=== PATIENT | female | born 1950 | race American Indian/Alaskan Native ===

== ENCOUNTER 2017-02-17 08:53 | Emergency (ER) | payer MEDICARE ==
[2017-02-17 08:53] VITALS: BMI 36.6
[2017-02-17 09:18] VITALS: TEMP 98
[2017-02-17] MEDS ORDERED: Sodium Chloride 0.9% 1,000 ML IV ONE ×2 (09:24→09:25)
--- NOTE | 2017-02-17 09:37 | C.PDOC ---
History Of Present Illness 66 year old female presents to the ED s/p a syncopal episode. Patient states she started prepping for her endoscopy at 03:00 and had several bowel movements. During one bowel movement she started to feel weak and sweaty like she was going to pass out. When her friend helped her off the toilet patient had the syncopal episode and came to after a few minutes. She denies any injury , dizziness, or any other complaints at this time. Time Seen by Provider: 02/17/17 09:14 Chief Complaint (Nursing): Syncope History Per: Patient History/Exam Limitations: no limitations Onset/Duration Of Symptoms: Mins Current Symptoms Are (Timing): Better Number Of Syncopal Episodes: 1 Activity At Onset Of Symptoms: Had Just Stood up Seizure Or Post-ictal Symptoms: None Severity: Mild Past Medical History Reviewed: Historical Data, Nursing Documentation, Vital Signs Vital Signs: Last Vital Signs Temp 98 F 02/17/17 09:05 Pulse 77 02/17/17 13:22 Resp 16 02/17/17 13:22 BP 139/82 02/17/17 13:22 Pulse Ox 96 02/19/17 12:44 - Medical History PMH: Arthritis, Asthma Surgical History: Cholecystectomy (x2), Family History: States: Unknown Family Hx - Social History Hx Tobacco Use: No Hx Alcohol Use: No Hx Substance Use: No - Immunization History Hx Tetanus Toxoid Vaccination: (unk) Hx Influenza Vaccination: Yes Hx Pneumococcal Vaccination: Yes Review Of Systems Except As Marked, All Systems Reviewed And Found Negative. Constitutional: Negative for: Fever, Chills Cardiovascular: Negative for: Chest Pain, Palpitations Respiratory: Negative for: Shortness of Breath Gastrointestinal: Negative for: Vomiting, Abdominal Pain Neurological: Positive for: Other (+Syncope). Negative for: Weakness, Numbness , Dizziness Physical Exam - Physical Exam Appears: Non-toxic, No Acute Distress Skin: Normal Color, Warm, Dry Head: Atraumatic, Normacephalic Eye(s): bilateral: Normal Inspection Oral Mucosa: Moist Chest: Symmetrical Cardiovascular: Rhythm Regular, No Murmur Respiratory: Normal Breath Sounds, No Accessory Muscle Use, No Rales, No Rhonchi , No Wheezing Gastrointestinal/Abdominal: Soft, No Distention Extremity: Normal ROM Neurological/Psych: Oriented x3, Normal Speech, Normal Cognition ED Course And Treatment - Laboratory Results Result Diagrams: 02/17/17 09:46 02/17/17 09:46 O2 Sat by Pulse Oximetry: 96 (Room air) Pulse Ox Interpretation: Normal Progress Note: EKG, Blood work, and Urinalysis ordered and reviewed. Patient treated with IV fluids. Medical Decision Making Medical Decision Making: Pt observed in the ED and remained stable Pt ambulated without difficultly Syncope likely related to diarrhea Discussed with dr Meehan as pt wanted to have colonoscopy today. Plan dc home to reschedule scoping Disposition Counseled Patient/Family Regarding: Diagnosis, Need For Followup - Disposition Referrals: Abdelrahman Chacon MD [Staff Provider] - Disposition: HOME/ ROUTINE Disposition Time: 13:15 Condition: GOOD Additional Instructions: Rest, drink plenty of gatoraid Follow up with PMD Instructions: Syncope (ED) - Clinical Impression Clinical Impression: Syncope - Scribe Statement The provider has reviewed the documentation as recorded by the Scribe Lilian Cedeño. Provider Attestation: All medical record entries made by the Scribe were at my direction and personally dictated by me. I have reviewed the chart and agree that the record accurately reflects my personal performance of the history, physical exam, medical decision making, and the department course for this patient. I have also personally directed, reviewed, and agree with the discharge instructions and disposition.
[2017-02-17] MEDS ORDERED: Sodium Chloride 0.9% 1,000 ML ONE ×2 (09:47→11:32)
[2017-02-17 09:52] LABS: BASO % 0.6 % (0.0-2.0); EOS # 0.1 K/uL (0.0-0.7); EOS % 2.4 % (0.0-4.0); LYMPH # 1.1 K/uL (1.0-4.3); LYMPH % 20.7 % (20.0-40.0); MEAN CELL VOLUME 83.3 fL (81.0-99.0); MEAN CORPUSCULAR HEMOGLOBIN 27.6 pg (27.0-31.0); MEAN CORPUSCULAR HGB CONC 33.1 g/dL (33.0-37.0); MEAN PLATELET VOLUME 7.9 fL (7.2-11.7); MONO # 0.4 K/uL (0.0-0.8); MONO % 7.2 % (0.0-10.0); RED CELL DISTRIBUTION WIDTH 13.5 % (11.5-14.5); WHITE BLOOD COUNT 5.5 K/uL (4.8-10.8)
[2017-02-17 09:59] LABS: CHLORIDE 103 mmol/L (98-107); SODIUM 141 mmol/L (132-148)
[2017-02-17 10:00] LABS: POTASSIUM 3.9 mmol/L (3.6-5.2)
[2017-02-17 10:02] LABS: ALB/GLOB RATIO 1.1 (1.0-2.1); ALKALINE PHOSPHATASE 101 U/L (38-126); ALT/SGPT 31 U/L (9-52); AST/SGOT 18 U/L (14-36); BILIRUBIN,TOTAL 0.6 mg/dL (0.2-1.3); BLOOD UREA NITROGEN 13 mg/dL (7-17); CARBON DIOXIDE 25 mmol/L (22-30); GFR AFRICAN-AMERICAN > 60; GLUCOSE,RANDOM 106 mg/dL (65-105); TOTAL PROTEIN 7.6 g/dL (6.3-8.3)
[2017-02-17 10:03] LABS: CALCIUM 9.1 mg/dl (8.6-10.4)
[2017-02-17 10:34] LABS: RBC URINE 4 /hpf (0-3); URINE BACTERIA RARE (<OCC); URINE BILIRUBIN NEGATIVE (NEGATIVE); URINE BLOOD 1+ (NEGATIVE); URINE COLOR Yellow (YELLOW); URINE GLUCOSE (UA) NORMAL (Normal); URINE KETONE NEGATIVE (NEGATIVE); URINE LEUKOCYTE ESTERASE 2+ Leu/uL (Negative); URINE PROTEIN NEGATIVE (NEGATIVE); URINE UROBILINOGEN NORMAL mg/dL (0.2-1.0); WBC URINE 4 /hpf (0-5)
[2017-02-17] MEDS ORDERED: Loperamide Hydrochloride 1 mg/5 ml Cup PO STA (13:17)
[2017-02-17 13:23] VITALS: BP 139/82; PULSE 77; RESP 16
--- NOTE | 2017-02-18 10:49 | CARD ---
APPROVED REPORT EKG Measurement Heart [id number] <Conclusion> Normal sinus rhythm Possible Left atrial enlargement Borderline ECG
[2017-02-19 12:43] VITALS: O2SAT 96
== END 2017-02-17 13:32 | disposition home or self-care (01) ==
LOC: C.ER 08:53
DX: R55 Syncope and collapse (principal)
CPT/HCPCS: 80053; 81001; 85025; 93005; 96360; 96361; 99285; J7040

== ENCOUNTER 2017-02-25 07:07 | Day surgery (SDC) | payer MEDICARE ==
[2017-02-25 07:34] VITALS: BMI 32.9
[2017-02-25] MEDS ORDERED: Propofol 10 mg/ml Inj (20 ML) ONE (08:41)
[2017-02-25] MEDS ORDERED: Lactated Ringer's 1,000 ML IV SCH (08:45)
--- NOTE | 2017-02-25 08:45 | CP.SDSHP ---
Same Day Surgery H & P - History Proposed Procedure: Colonoscopy Pre-Op Diagnosis: rectal bleeding - Previous Medical/Surgical History Misc: Other (Glaucoma. Back problems) Previous Surgical History: back surgery. - Allergies Allergies: Allergies soy Allergy (Intermediate, Verified 02/17/17 09:27) ITCHING - Current Medications Current Medications: reviewed - Physical Exam General Appearance: wdwn nad Vital Signs: Vital Signs 02/25/17 07:38 Temperature 98.0 F Pulse Rate 80 Respiratory 17 Rate Blood Pressure 112/74 O2 Sat by Pulse 97 Oximetry Mental Status: Alert & Oriented x3 Heart: WNL Lungs: WNL GI: WNL - {Optional Preform as Required} Abdomen: WNL - Impression Impression: Rectal bleed Pt. Evaluated Today:Candidate for Anesthesia & Procedure: Yes - Date & Time Date: 02/25/17 Time: 08:44 Short Stay Discharge - Short Stay Discharge Admitting Diagnosis/Reason for Visit: RECTAL BLEED Disposition: HOME/ ROUTINE
[2017-02-25] MEDS ORDERED: Glucagon Recombinant 1 mg Inj ONE (09:00)
[2017-02-25 09:51] VITALS: TEMP 97.5
[2017-02-25 10:17] VITALS: BP 118/59; PULSE 63; RESP 16; O2SAT 98
== END 2017-02-25 10:22 | disposition home or self-care (01) ==
LOC: C.ENDO 07:07
PROVIDERS: ATTEND Internal Medicine Gastroenterology
DX: D12.5 Benign neoplasm of sigmoid colon (principal); K62.5 Hemorrhage of anus and rectum; K57.30 Diverticulosis of large intestine without perforation or abscess without bleeding; K64.0 First degree hemorrhoids
CPT/HCPCS: 45385; 88305; J1610; J2704; J7120

== ENCOUNTER 2017-04-05 10:29 | Inpatient (IN) | payer MEDICARE, OTHER ==
[2017-04-05 10:29] VITALS: BMI 32.9
[2017-04-05] MEDS ORDERED: Morphine 4 MG/ML VIAL ONE ×2 (11:22→15:21)
[2017-04-05 11:29] LABS: BASO % 0.6 % (0.0-2.0); EOS # 0.1 K/uL (0.0-0.7); EOS % 2.6 % (0.0-4.0); HEMATOCRIT 39.9 % (34.0-47.0); LYMPH # 1.3 K/uL (1.0-4.3); LYMPH % 27.7 % (20.0-40.0); MEAN CELL VOLUME 84.8 fL (81.0-99.0); MEAN CORPUSCULAR HEMOGLOBIN 27.8 pg (27.0-31.0); MEAN CORPUSCULAR HGB CONC 32.8 g/dL (33.0-37.0); MEAN PLATELET VOLUME 7.5 fL (7.2-11.7); MONO # 0.4 K/uL (0.0-0.8); MONO % 9.1 % (0.0-10.0); NRBC % 0.1 % (0.0-2.0); WHITE BLOOD COUNT 4.6 K/uL (4.8-10.8)
--- NOTE | 2017-04-05 11:39 | C.PDOC ---
History Of Present Illness 66 year old female presents to the ED with complaints of chest pain and upper back pain described as sudden onset and sharp chest and upper back pain. Patient states she was walking around at work when the pain began and was felt all over with worsening on movement or when bending. Then nausea, and vomited once. She notes a history of lower back issues and had a laminectomy ten years ago. She denies ever feeling this type of pain, SOB, diaphoresis, cough, or fever. Treated with asa and zofran in the field. Time Seen by Provider: 04/05/17 10:58 Chief Complaint (Nursing): Chest Pain History Per: Patient History/Exam Limitations: no limitations Onset/Duration Of Symptoms: Hrs Current Symptoms Are (Timing): Still Present Quality: Sharp Associated Symptoms: Nausea. denies: Diaphoresis, Syncope Exacerbating Factors: Movement Recent travel outside of the [place] States: No Additional History Per: EMS Past Medical History Reviewed: Historical Data, Nursing Documentation, Vital Signs Vital Signs: Last Vital Signs Temp 98.5 F 04/05/17 13:10 Pulse 61 04/05/17 13:10 Resp 16 04/05/17 13:10 BP 124/71 04/05/17 13:10 Pulse Ox 98 04/05/17 13:10 - Medical History PMH: Arthritis, Asthma, Colonic Polyps, Osteoporosis Surgical History: Cholecystectomy (x2), Family History: States: Unknown Family Hx - Social History Hx Tobacco Use: No Hx Alcohol Use: No Hx Substance Use: No Review Of Systems Constitutional: Negative for: Fever, Chills, Sweats, Weakness Eyes: Negative for: Vision Change Cardiovascular: Positive for: Chest Pain. Negative for: Palpitations Respiratory: Negative for: Cough, Shortness of Breath, Wheezing Gastrointestinal: Positive for: Nausea. Negative for: Vomiting, Abdominal Pain , Diarrhea Musculoskeletal: Positive for: Back Pain (upper back pain) Physical Exam - Physical Exam Appears: Non-toxic, Other (Appears in painful distress) Skin: Warm, Dry Head: Normacephalic Eye(s): bilateral: Normal Inspection Oral Mucosa: Moist Neck: Normal ROM, Supple Chest: Symmetrical, No Deformity Cardiovascular: Rhythm Regular, No Murmur Respiratory: No Rales, No Rhonchi, No Stridor, No Wheezing Gastrointestinal/Abdominal: Soft, No Tenderness, No Distention, No Guarding, No Rebound Back: Paraspinal Tenderness (parathoracic tenderness T1-T10) Extremity: Normal ROM, No Tenderness Neurological/Psych: Oriented x3, Normal Speech, Normal Cognition ED Course And Treatment - Laboratory Results Result Diagrams: 04/05/17 11:22 04/05/17 11:22 ECG: Interpreted By Me, Viewed By Me ECG Rhythm: Sinus Rhythm (with sinus arrhythmia) ECG Interpretation: No Acute Changes Interpretation Of ECG: sinus arrhthymia at 73 bpm, no STT changes Rate From EC O2 Sat by Pulse Oximetry: 96 (room air ) Pulse Ox Interpretation: Normal - Radiology CXR: Interpreted by Me CXR Interpretation: Yes: No Acute Disease Medical Decision Making Medical Decision Making: Pt medicated with morphine for pain with good relie Labs ekg and cxr unremarkable However in view of pt's age and severity of symptoms, observation indicated Discussed with dr Wild who agrees with plan Disposition - Disposition Disposition: HOSPITALIZED Disposition Time: 15:34 Condition: GOOD - Clinical Impression Clinical Impression: Chest pain - Scribe Statement The provider has reviewed the documentation as recorded by the Scribe Mary Bentley All medical record entries made by the Scribe were at my direction and personally dictated by me. I have reviewed the chart and agree that the record accurately reflects my personal performance of the history, physical exam, medical decision making, and the department course for this patient. I have also personally directed, reviewed, and agree with the discharge instructions and disposition. Decision To Admit - Pt Status Changed To: Hospital Disposition Of: Observation - . Bed Request Type: Telemetry Admitting Physician: Laila Wild Patient Diagnosis: Chest pain
[2017-04-05 11:48] LABS: CHLORIDE 100 mmol/L (98-107); POTASSIUM 3.5 mmol/L (3.6-5.2); SODIUM 138 mmol/L (132-148)
[2017-04-05 11:50] LABS: ALB/GLOB RATIO 1.1 (1.0-2.1); ALKALINE PHOSPHATASE 85 U/L (38-126); AST/SGOT 22 U/L (14-36); BILIRUBIN,TOTAL 0.5 mg/dL (0.2-1.3); CARBON DIOXIDE 26 mmol/L (22-30); GFR AFRICAN-AMERICAN > 60; TOTAL PROTEIN 6.8 g/dL (6.3-8.3)
[2017-04-05 11:51] LABS: ALT/SGPT 27 U/L (9-52); BLOOD UREA NITROGEN 20 mg/dL (7-17); CALCIUM 8.8 mg/dl (8.6-10.4); GLUCOSE,RANDOM 97 mg/dL (65-105)
--- NOTE | 2017-04-05 13:39 | RAD ---
PROCEDURE: CHEST RADIOGRAPH, 1 VIEW HISTORY: CP COMPARISON: COMPARISON IS MADE TO THE PREVIOUS STUDY DATED 03/03/2016. FINDINGS: LUNGS: No evidence of new infiltrate or consolidation in the lungs. No evidence of significant interval change PLEURA: No pneumothorax or pleural fluid seen. CARDIOVASCULAR: Normal. OSSEOUS STRUCTURES: No significant abnormalities. VISUALIZED UPPER ABDOMEN: Normal. OTHER FINDINGS: None. IMPRESSION: No active disease. No significant interval change since the previous exam.
--- NOTE | 2017-04-05 16:30 | CP.PCM.HP ---
<Candida Sommer - Last Filed: 04/05/17 17:06> History of Present Illness - History of Present Illness History of Present Illness: CC: "sharp chest pain" HPI: Patient is a 66 year old female with PMHx of arthritis and chronic low back pain who presents to the ED after she developed chest pain this morning. Patient was walking while at work when she had sudden onset midsternal chest pain at 0930. Pain was described as sharp pressure, 8/10, and radiating to her back. Patient sat down and had 2 episodes of non-bilious, non-bloody vomiting. The patient was brought to the ED where she was given Morphine 4mg IV. Pain was alleviated to a 3/10 but still present. Upon examination the patient states that the pain now radiates to her bilateral flank. Patient denies any other associated symptoms: Denies fever, chills, recent illness, diarrhea, constipation, urinary symptoms, recent illness, lower leg swelling, leg pain, headache, dizziness, change in vision, dysphagia, gerd, palpitations, diaphoresis, recent travel, and sick contacts. Patient had a stress test 2 years ago which was normal. Colonoscopy done 2016 which showed polyp and diverticulum. PMD: Mitchel PMHx: arthritis and chronic low back pain Meds: Naproxen twice daily Surgical Hx: laminectomy with fusion of L2-4, x2 Family Hx: Mom from natural causes at age 91, Dad- DM (no family history of NH) Social Hx: Denies EtOH use. Previous 2ppd smoker x 30 years (quit 13 years ago) . Denies illicit drug use. Works at [employer] in maintenance. Allergies: soy (rash); NKDA Present on Admission - Present on Admission Any Indicators Present on Admission: No Review of Systems - Constitutional Constitutional: As Per HPI. absent: Chills, Headache, Weakness - EENT Eyes: As Per HPI. absent: Blurred Vision, Change in Vision Ears: As Per HPI. absent: Dizziness Nose/Mouth/Throat: As Per HPI. absent: Sore Throat - Cardiovascular Cardiovascular: As Per HPI, Chest Pain, Chest Pain at Rest. absent: Dyspnea, Edema, Lightheadedness, Palpitations, Pedal Edema - Respiratory Respiratory: As Per HPI. absent: Cough, Dyspnea, Chest Congestion - Gastrointestinal Gastrointestinal: As Per HPI, Nausea, Vomiting. absent: Abdominal Pain, Constipation, Diarrhea, Heartburn, Hematemesis - Genitourinary Genitourinary: As Per HPI. absent: Change in Urinary Stream, Difficulty Urinating - Musculoskeletal Musculoskeletal: As Per HPI. absent: Muscle Cramps, Muscle Weakness, Numbness, Tingling - Integumentary Integumentary: As Per HPI. absent: New Lesions, Rash - Neurological Neurological: As Per HPI. absent: Abnormal Gait, Dizziness, Numbness, Headaches , Syncope, Tingling, Tremor, Weakness - Psychiatric Psychiatric: As Per HPI. absent: Anxiety, Depression - Endocrine Endocrine: absent: Palpitations Past Patient History - Tetanus Immunizations Tetanus Immunization: Unknown - Past Medical History & Family History Past Medical History?: No - Past Social History Smoking Status: Never Smoked - CARDIAC Hx Cardiac Disorders: No - PULMONARY Hx Asthma: Yes - NEUROLOGICAL Hx Neurological Disorder: No - HEENT Hx HEENT Problems: Yes Hx Glaucoma: Yes - RENAL Hx Chronic Kidney Disease: No - HEMATOLOGICAL/ONCOLOGICAL Hx Blood Disorders: No Hx Blood Transfusions: No - INTEGUMENTARY Hx Dermatological Problems: No - MUSCULOSKELETAL/RHEUMATOLOGICAL Hx Arthritis: Yes Hx Osteoporosis: Yes - GASTROINTESTINAL Hx Gastrointestinal Disorders: Yes - GENITOURINARY/GYNECOLOGICAL Hx Genitourinary Disorders: No - PSYCHIATRIC Hx Substance Use: No - SURGICAL HISTORY Hx Cholecystectomy: Yes (x2) - ANESTHESIA Hx Anesthesia: Yes Hx Anesthesia Reactions: No Hx Malignant Hyperthermia: No Meds Allergies/Adverse Reactions: Allergies Allergy/AdvReac Type Severity Reaction Status Date / Time soy Allergy Intermediate ITCHING Verified 02/17/17 09:27 Physical Exam - Constitutional Appears: Non-toxic, No Acute Distress - Head Exam Head Exam: ATRAUMATIC, NORMOCEPHALIC - Eye Exam Eye Exam: EOMI, Normal appearance, PERRL Pupil Exam: NORMAL ACCOMODATION - ENT Exam ENT Exam: Mucous Membranes Moist - Neck Exam Neck exam: Positive for: Normal Inspection - Respiratory Exam Respiratory Exam: Clear to Auscultation Bilateral, NORMAL BREATHING PATTERN. absent: Rales, Rhonchi, Wheezes, Respiratory Distress - Cardiovascular Exam Cardiovascular Exam: REGULAR RHYTHM, +S1, +S2. absent: Tachycardia, Irregular Rhythm, Systolic Murmur Additional comments: reproducible chest pain with palpation of midsternum above xiphoid process - GI/Abdominal Exam GI & Abdominal Exam: Normal Bowel Sounds, Soft, Tenderness (mild ttp of epigastrum ). absent: Distended, Firm, Guarding - Extremities Exam Extremities exam: Positive for: full ROM, normal inspection, pedal pulses present. Negative for: pedal edema, tenderness - Neurological Exam Neurological exam: Alert, CN II-XII Intact, Normal Gait, Oriented x3 - Psychiatric Exam Psychiatric exam: Normal Affect, Normal Mood - Skin Skin Exam: Dry, Intact, Normal Color, Warm Results - Vital Signs Recent Vital Signs: Last Vital Signs Temp 98.2 F 04/05/17 15:28 Pulse 70 04/05/17 15:28 Resp 16 04/05/17 15:28 BP 127/75 04/05/17 15:28 Pulse Ox 96 04/05/17 15:35 - Labs Result Diagrams: 04/05/17 11:22 04/05/17 11:22 Assessment & Plan - Assessment and Plan (Free Text) Assessment: 1. Chest pain Admit to tele/obs Hemodynamically stable Chest Xray- no active disease EKG- sinus arrhythmia @73bpm, no ST/T wave changes MAUREEN negative x1 f/u ROMIs x2 with EKGs q6h f/u CTA Chest dissection protocol ASA 81mg PO daily Crestor 10mg PO HS f/u lipid panel, TSH, HgA1C 2. Prophylactic measures SCDs Protonix 40mg IV daily <Tony Culver - Last Filed: 04/13/17 12:58> Results - Vital Signs Recent Vital Signs: Last Vital Signs Temp 98 F 04/13/17 00:00 Pulse 83 04/13/17 00:00 Resp 20 04/13/17 00:00 BP 138/87 04/13/17 00:00 Pulse Ox 96 04/13/17 00:00 - Labs Result Diagrams: 04/13/17 07:22 04/13/17 07:22 Labs: Laboratory Results - last 24 hr 04/13/17 04/13/17 07:22 07:22 WBC 7.2 RBC 3.74 L Hgb 10.5 L Hct 31.0 L MCV 82.9 MCH 28.1 MCHC 33.9 RDW 14.2 Plt Count 248 MPV 7.4 Neut % (Auto) 77.7 H Lymph % (Auto) 8.8 L Dupage % (Auto) 11.4 H Eos % (Auto) 1.9 Baso % (Auto) 0.2 Neut # 5.6 Lymph # 0.6 L Dupage # 0.8 Eos # 0.1 Baso # 0.0 Neutrophils % (Manual) 80 H Band Neutrophils % 7 H Lymphocytes % (Manual) 4 L Monocytes % (Manual) 6 Eosinophils % (Manual) 2 Myelocytes % 1 H Platelet Estimate Normal Hypochromasia (manual) Slight Ovalocytes Slight Sodium 133 Potassium 3.5 L Chloride 96 L Carbon Dioxide 30 Anion Gap 11 BUN 8 Creatinine 0.7 Est GFR ( Amer) > 60 Est GFR (Non-Af Amer) > 60 Random Glucose 104 Calcium 7.9 L Phosphorus 3.2 Magnesium 2.0 Total Bilirubin 0.6 AST 34 ALT 46 Alkaline Phosphatase 103 Total Protein 5.6 L Albumin 2.5 L Globulin 3.1 Albumin/Globulin Ratio 0.8 L Attending/Attestation - Attestation I have personally seen and examined this patient.: Yes I have fully participated in the care of the patient.: Yes I have reviewed all pertinent clinical information: Yes Notes (Text): 04/13/17 12:58 Patient was seen and examined at bedside with the resident at the time of admission This a late computer entry I discussed the plan of care with the resident. I reviewed patient's chart, labs , imaging studies, medical record and I agree with the history and physical and assessment/plan with the resident.
[2017-04-05] MEDS ORDERED: Iodixanol 320 mg/ml 150 ml Bottle IV ONE (17:07)
[2017-04-05 17:41] LABS: CHOLESTEROL 161 mg/dL (0-199)
[2017-04-05 18:14] LABS: THYROID STIMULATING HORMONE 0.45 mIU/L (0.46-4.68)
--- NOTE | 2017-04-05 19:42 | CT ---
EXAM: CT Chest With Intravenous Contrast CLINICAL HISTORY: 66 years old, female; Pain; Abdominal pain; Generalized; Chest pain; Type not specified; Additional info: Chest pain radiating to back TECHNIQUE: Axial computed tomography images of the chest with intravenous contrast. This CT exam was performed using one or more of the following dose reduction techniques: automated exposure control, adjustment of the mA and/or kV according to patient size, and/or use of iterative reconstruction technique. Coronal and sagittal reformatted images were created and reviewed. CONTRAST: 100 mL of [id number] administered intravenously. COMPARISON: No relevant prior studies available. FINDINGS: Lungs: Centriacinar type emphysema is noted bilaterally predominantly in the mid and upper lung abbott, right side greater than left.. There is a bulla in the right middle lobe. There are 2 bulla in the posterior basal segment of the left lower lobe Pleural space: Unremarkable. No pneumothorax. No significant effusion. Heart: Unremarkable. No cardiomegaly. No significant pericardial effusion. Bones/joints: Unremarkable. No acute fracture. No dislocation. Soft tissues: Unremarkable. Vasculature: Unremarkable. No thoracic aortic aneurysm. Lymph nodes: Unremarkable. No enlarged lymph nodes. 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 Bullae noted at each lung base. 2. No evidence of aortic aneurysm EXAM: CT Abdomen and Pelvis With Intravenous Contrast CLINICAL HISTORY: 66 years old, female; Pain; Abdominal pain; Generalized; Chest pain; Type not specified; Additional info: Chest pain radiating to back TECHNIQUE: Axial computed tomography images of the abdomen and pelvis with intravenous contrast. This CT exam was performed using one or more of the following dose reduction techniques: automated exposure control, adjustment of the mA and/or kV according to patient size, and/or use of iterative reconstruction technique. Coronal and sagittal reformatted images were created and reviewed. CONTRAST: 100 mL of [id number] administered intravenously. EXAM DATE/TIME: Exam ordered 04/05/2017 4:20 PM COMPARISON: CR - CHEST TWO VIEWS (PA/LAT) 03/03/2016 5:53:48 PM FINDINGS: Lower thorax: No acute findings. ABDOMEN: Liver: Unremarkable. No mass. Gallbladder and bile ducts: There is a gallstone noted within the neck of the gallbladder. No ductal dilation. Pancreas: Unremarkable. No mass. No ductal dilation. Spleen: Unremarkable. No splenomegaly. Adrenals: Unremarkable. No mass. Kidneys and ureters: Unremarkable. No solid mass. No hydronephrosis. Stomach and bowel: Scattered colonic diverticula. No obstruction. No mucosal thickening. Appendix: No findings to suggest acute appendicitis. PELVIS: Bladder: Unremarkable. No mass. Reproductive: There is calcification or enhancement noted within the right ovary. The right ovary measures 3 x 3 x 3 cm. ABDOMEN and PELVIS: Intraperitoneal space: Unremarkable. No free air. No significant fluid collection. Bones/joints: There's been a posterior laminectomy from L3-S1. Intrapedicle screws and posterior spinal fixation devices bridge L3-L5 intervertebral disc spaces. No acute fracture. No dislocation. Soft tissues: Unremarkable. Vasculature: There is a standard configuration of the origin of the great vessels from the aortic arch. No abdominal aortic aneurysm. Lymph nodes: Unremarkable. No enlarged lymph nodes. IMPRESSION: 1. Gallstone 2. Scattered colonic diverticula. No evidence of diverticulitis. 3. Hyperdense appearance of the right ovary. This may be related to calcification or reflect enhancement. Given the patient's age, it is unlikely that this represents the extravasation or hemorrhage within the right ovary. Clinical correlation suggested. 4. Postoperative changes in the lower lumbar spine.
[2017-04-05] MEDS: Morphine 4 MG/ML VIAL IVP PRN (22:16)
[2017-04-06] MEDS: Morphine 4 MG/ML VIAL IVP PRN (03:49)
[2017-04-06 07:25] LABS: CHLORIDE 98 mmol/L (98-107)
[2017-04-06 07:26] LABS: POTASSIUM 3.9 mmol/L (3.6-5.2); SODIUM 134 mmol/L (132-148)
[2017-04-06 07:29] LABS: BLOOD UREA NITROGEN 14 mg/dL (7-17); CARBON DIOXIDE 25 mmol/L (22-30); GFR AFRICAN-AMERICAN > 60; GLUCOSE,RANDOM 105 mg/dL (65-105)
--- NOTE | 2017-04-06 07:49 | CP.PCM.PN ---
<Elma Ramos - Last Filed: 04/06/17 14:21> Subjective - Date & Time of Evaluation Date of Evaluation: 04/06/17 Time of Evaluation: 11:41 - Subjective Subjective: PGY1 Medicine note for Dr. Greene Patient seen and examined at bedside. Patient continues to complain of epigastric and abdominal pain radiating to both flanks. She reports she has reflux in the morning and she had had episode of vomitus before admisison which was nonbloody nonbilious and did not look like ground coffee. Patient also had an episode of emesis this AM. Patient also disclosed some pain on inspiration. Patient denies a metallic taste in her mouth but she reports a burning sensation. She disclosed she has been taking Naproxen daily for years for her arthritis and lumbar surgeries. Patient has also been having some dark stool and she noted some blood in her stool a couple of weeks ago. She has had a colonoscopy in February where a polyp was removed. Patient has never had an EGD. She denied headaches, dizziness, fever, chest pain, cough, diarrhea, constipation, dysuria, pain and swelling in her legs bilaterally. Objective - Vital Signs/Intake and Output Vital Signs (last 24 hours): Temp Pulse Resp BP Pulse Ox 98.2 F 80 20 138/84 93 L 04/05/17 23:21 04/06/17 00:15 04/05/17 23:21 04/05/17 23:21 04/05/17 23:21 - Medications Medications: Current Medications Aspirin (Aspirin Chewable) 81 mg PO DAILY [facility] Morphine Sulfate (Morphine) 4 mg IVP Q4H PRN PRN Reason: Pain, moderate (4-7) Last Admin: 04/06/17 03:49 Dose: 4 mg Ondansetron HCl (Zofran Inj) 4 mg IVP Q6H PRN PRN Reason: Nausea/Vomiting Last Admin: 04/06/17 03:49 Dose: 4 mg Pantoprazole Sodium (Protonix Inj) 40 mg IVP DAILY [facility] Rosuvastatin Calcium (Crestor) 10 mg PO HS [facility] Last Admin: 04/05/17 22:18 Dose: 10 mg - Labs Labs: 04/06/17 07:05 - Constitutional Appears: Non-toxic, No Acute Distress - Head Exam Head Exam: NORMAL INSPECTION - Eye Exam Eye Exam: Normal appearance. absent: Conjunctival injection, Scleral icterus - ENT Exam ENT Exam: Mucous Membranes Moist - Neck Exam Neck Exam: Normal Inspection - Respiratory Exam Respiratory Exam: Clear to Ausculation Bilateral, NORMAL BREATHING PATTERN. absent: Accessory Muscle Use, Rales, Rhonchi, Wheezes, Respiratory Distress - Cardiovascular Exam Cardiovascular Exam: REGULAR RHYTHM, RRR, +S1, +S2 - GI/Abdominal Exam GI & Abdominal Exam: Guarding (when palpating RUQ), Soft, Tenderness (RUQ), Normal Bowel Sounds. absent: Distended, Firm, Rigid, Hernia, Rebound - Rectal Exam Rectal Exam: NORMAL INSPECTION. absent: Black Stool, Bloody Stool, Hemorrhoids , Fecal Impaction - Extremities Exam Extremities Exam: Normal Capillary Refill, Normal Inspection. absent: Pedal Edema, Tenderness - Back Exam Back Exam: NORMAL INSPECTION. 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 Bullae noted at each lung base; No evidence of aortic aneurysm. ASA 81mg PO daily Crestor 10mg PO HS Morphing 4mg IVP Q4 pain prn Toradol 30mg IVP one time for pain Lipid panel WNL TSH 0.45 HgA1C 5.6 Abdominal Pain f/u RUQ U/S CT Abd/pelvis with IV contrast: gallstone; scattered colonic diverticula, no evidence of diverticulitis; hyperdense appearance of right ovary. This may be related to calcification or reflect enhancement. Given the f/u amylase and lipase f/u FOBT Simethicone 80mg po tid Protonix 40mg IVP BID Zofran 4mg IVP Q6H PRN Bismuth Subsalicylate 262mg po x 1 dose NS @ 100cc/hr GI Dr. Cronin consulted- f/u recommendations Prophylactic measures SCDs Protonix 40mg IV daily Heparin 5000U SC Q12 Zofran 4mg IVP Q6H prn NS @ 100cc/hr Plan discussed with Dr. Jc Ramos PGY1 <Torey Greene - Last Filed: 05/08/17 13:12> Objective - Vital Signs/Intake and Output Vital Signs (last 24 hours): Temp Pulse Resp BP Pulse Ox 98.6 F 102 H 20 146/84 95 04/13/17 15:35 04/13/17 15:35 04/13/17 15:35 04/13/17 15:35 04/13/17 15:35 - Labs Labs: 04/13/17 07:22 04/13/17 07:22 PT 11.0 SECONDS (9.7-12.2) 04/10/17 08:09 INR 1.0 04/10/17 08:09 APTT 29 SECONDS (21-34) 04/10/17 08:09 Attending/Attestation - Attestation I have personally seen and examined this patient.: Yes I have fully participated in the care of the patient.: Yes I have reviewed all pertinent clinical information, including history, physical exam and plan: Yes Notes (Text): Patient Seen and examined with the resident. Agree with the resident's evaluation, assessment and plan. 66 year old female with PMHx of arthritis and chronic low back pain who presents to the ED for chest pain continue workup Abdominal Pain continue workup
[2017-04-06 12:09] LABS: HEMATOCRIT 40.2 % (34.0-47.0); MEAN CELL VOLUME 84.6 fL (81.0-99.0); MEAN CORPUSCULAR HEMOGLOBIN 29.3 pg (27.0-31.0); MEAN CORPUSCULAR HGB CONC 34.6 g/dL (33.0-37.0); MEAN PLATELET VOLUME 7.8 fL (7.2-11.7); WHITE BLOOD COUNT 10.6 K/uL (4.8-10.8)
[2017-04-06] MEDS ORDERED: Bismuth Subsalicylate 262 mg/15 ml Sus (240 ml) PO STA (14:07)
[2017-04-06] MEDS: Sodium Chloride 0.9% 1,000 ML IV SCH (14:43)
--- NOTE | 2017-04-06 16:13 | CP.PCM.CON ---
History of Present Illness - History of Present Illness History of Present Illness: CC: Abdominal pain HPI: 66 year old woman, known to me from office, developed sudden onset of chest pain and nausea/vomiting while walking at work yesterday. The symptoms progressed and patient came to the ER. CT dissection was performed and remarkable for gallstone in neck of GB, so GI consult requested. Patient has less pain today but still feels nauseated. Patient takes Naproxen every day for arthritis. She denies signs/symptoms of GI bleeding. 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 Review of Systems - Constitutional Constitutional: absent: Chills, Fever - EENT Eyes: absent: Change in Vision Ears: absent: Ear Pain - Cardiovascular Cardiovascular: Chest Pain. absent: Dyspnea - Respiratory Respiratory: Dyspnea on Exertion. absent: Dyspnea - Gastrointestinal Gastrointestinal: Abdominal Pain, Nausea. absent: Change in Bowel Habits, Constipation, Loose Stools, Melena - Genitourinary Genitourinary: absent: Dysuria - Musculoskeletal Musculoskeletal: Arthralgias, Back Pain - Neurological Neurological: absent: Abnormal Gait Past Patient History - Tetanus Immunizations Tetanus Immunization: Unknown - Past Medical History & Family History Past Medical History?: Yes - Past Social History Smoking Status: Former Smoker - CARDIAC Hx Cardiac Disorders: No - PULMONARY Hx Respiratory Disorders: Yes Hx Asthma: Yes - NEUROLOGICAL Hx Neurological Disorder: No - HEENT Hx HEENT Problems: Yes Hx Glaucoma: Yes - RENAL Hx Chronic Kidney Disease: No - HEMATOLOGICAL/ONCOLOGICAL Hx Blood Disorders: No Hx Blood Transfusions: No - INTEGUMENTARY Hx Dermatological Problems: No - MUSCULOSKELETAL/RHEUMATOLOGICAL Hx Musculoskeletal Disorders: Yes Hx Arthritis: Yes Hx Back Pain: Yes Hx Falls: Yes Hx Fractures: Yes (rt ankle) Hx Osteoporosis: Yes - GASTROINTESTINAL Hx Gastrointestinal Disorders: Yes - GENITOURINARY/GYNECOLOGICAL Hx Genitourinary Disorders: No - PSYCHIATRIC Hx Psychophysiologic Disorder: No Hx Substance Use: No - SURGICAL HISTORY Hx Surgeries: Yes Hx Section: Yes (x2) Other/Comment: explor lap due to vaginal tear, epidural injections for pain ,laminectomy/fusion - ANESTHESIA Hx Anesthesia: Yes Hx Anesthesia Reactions: No Hx Malignant Hyperthermia: No Meds Allergies/Adverse Reactions: Allergies Allergy/AdvReac Type Severity Reaction Status Date / Time soy Allergy Intermediate ITCHING Verified 02/17/17 09:27 - Medications Medications: Current Medications Aspirin (Aspirin Chewable) 81 mg PO DAILY [facility] Last Admin: 04/06/17 09:51 Dose: 81 mg Heparin Sodium (Porcine) (Heparin) 5,000 units SC Q12 [facility] Last Admin: 04/06/17 11:28 Dose: 5,000 units Sodium Chloride (Sodium Chloride 0.9%) 1,000 mls @ 100 mls/hr IV .Q10H [facility] Last Admin: 04/06/17 14:43 Dose: 100 mls/hr Ketorolac Tromethamine (Toradol) 30 mg IVP ONCE PRN PRN Reason: Pain, moderate (4-7) Last Admin: 04/06/17 14:44 Dose: 30 mg Ondansetron HCl (Zofran Inj) 4 mg IVP Q6H PRN PRN Reason: Nausea/Vomiting Last Admin: 04/06/17 09:50 Dose: 4 mg Pantoprazole Sodium (Protonix Inj) 40 mg IVP BID [facility] Rosuvastatin Calcium (Crestor) 10 mg PO HS [facility] Last Admin: 04/05/17 22:18 Dose: 10 mg Simethicone (Mylicon Chew Tab) 80 mg PO TID [facility] Physical Exam - Constitutional Appears: Well, No Acute Distress - Head Exam Head Exam: ATRAUMATIC, NORMOCEPHALIC - Eye Exam Eye Exam: Normal appearance. absent: Scleral icterus - ENT Exam ENT Exam: Normal Exam - Neck Exam Neck exam: Positive for: Normal Inspection. Negative for: Tenderness, Thyromegaly - Respiratory Exam Respiratory Exam: NORMAL BREATHING PATTERN - Cardiovascular Exam Cardiovascular Exam: REGULAR RHYTHM - GI/Abdominal Exam GI & Abdominal Exam: Soft, Tenderness (RUQ and epigastric tenderness). absent: Distended, Guarding, Mass, Rebound - Rectal Exam Rectal Exam: Deferred - Extremities Exam Extremities exam: Positive for: normal inspection - Neurological Exam Neurological exam: Alert, Oriented x3 - Psychiatric Exam Psychiatric exam: Normal Affect, Normal Mood - Skin Skin Exam: Warm Results - Vital Signs Recent Vital Signs: Last Vital Signs Temp 98.3 F 04/06/17 07:20 Pulse 79 04/06/17 07:20 Resp 18 04/06/17 07:20 BP 118/70 04/06/17 07:20 Pulse Ox 94 L 04/06/17 07:20 - Labs Result Diagrams: 04/06/17 11:57 04/06/17 07:05 Labs: Laboratory Results - last 24 hr 04/05/17 04/05/17 04/06/17 17:20 17:20 02:16 WBC RBC Hgb Hct MCV MCH MCHC RDW Plt Count MPV Sodium Potassium Chloride Carbon Dioxide Anion Gap BUN Creatinine Est GFR ( Amer) Est GFR (Non-Af Amer) Random Glucose Hemoglobin A1c 5.6 Calcium Total Creatine Kinase 141 H 84 CK-MB (Mass) 2.07 1.24 Troponin I, Quant < 0.0120 < 0.0120 Triglycerides 50 Cholesterol 161 LDL Cholesterol Direct 92 HDL Cholesterol 56 Lipase TSH 3rd Generation 0.45 L Stool Occult Blood 04/06/17 04/06/17 04/06/17 07:03 07:05 11:57 WBC 10.6 D RBC 4.75 Hgb 13.9 Hct 40.2 MCV 84.6 MCH 29.3 MCHC 34.6 RDW 15.0 H Plt Count 205 MPV 7.8 Sodium 134 Potassium 3.9 Chloride 98 Carbon Dioxide 25 Anion Gap 14 BUN 14 Creatinine 0.7 Est GFR ( Amer) > 60 Est GFR (Non-Af Amer) > 60 Random Glucose 105 Hemoglobin A1c Calcium 9.0 Total Creatine Kinase CK-MB (Mass) Troponin I, Quant Triglycerides Cholesterol LDL Cholesterol Direct HDL Cholesterol Lipase 18 L TSH 3rd Generation Stool Occult Blood 04/06/17 14:58 WBC RBC Hgb Hct MCV MCH MCHC RDW Plt Count MPV Sodium Potassium Chloride Carbon Dioxide Anion Gap BUN Creatinine Est GFR ( Amer) Est GFR (Non-Af Amer) Random Glucose Hemoglobin A1c Calcium Total Creatine Kinase CK-MB (Mass) Troponin I, Quant Triglycerides Cholesterol LDL Cholesterol Direct HDL Cholesterol Lipase TSH 3rd Generation Stool Occult Blood Negative Assessment & Plan (1) Chest pain Assessment and Plan: Chest and abdominal pain- R/O Biliary vs peptic. Rec: abdominal sonogram, Protonix. Will follow up Status: Acute
--- NOTE | 2017-04-06 16:28 | US ---
HISTORY: abdominal pain COMPARISON: None. TECHNIQUE: Sonographic evaluation of the abdomen. FINDINGS: LIVER: Measures 15.1 cm. N smooth contour and normal l echogenicity of the liver parenchyma. No m hepatic mass however note is made of a small cyst left lobe liver measuring 1.6 x 1.1 x 1.6 cm. . No intrahepatic bile duct dilatation. GALLBLADDER: Gallbladder is physiologically distended. Intraluminal gallbladder calculus within the gallbladder neck region. There may also be either noncalcified calculus or polyp measuring 2.7 x 3.1 x 3.1 cm. The tiny amount of free fluid adjacent to the gallbladder wall. Rule out mild early cholecystitis the maddox maddox No sonographic Hassan sign. . COMMON BILE DUCT: Measures 5.4 mm. No stones. No dilatation. PANCREAS: Unremarkable as visualized. No mass. No ductal dilatation. RIGHT KIDNEY: Measures 12.2 x 5.0 x 5.5cm. Slight increased echogenicity. No calculus, mass, or hydronephrosis. LEFT KIDNEY: Measures 11.2 x 5.2 x 4.4cm. Slight increased. No evidence of obstructing nephrolithiasis. Small cyst midpole region measuring approximately 9 mm in greatest dimension. SPLEEN: Normal size measuring approximately 0.5 cm in greatest dimension. Normal contour. . No mass. AORTA: No aneurysmal dilatation. IVC: Unremarkable. OTHER FINDINGS: None. IMPRESSION: Cholelithiasis and possible polyp with gallbladder wall thickening/edema. . Small amount of free fluid adjacent to the gallbladder. Rule out mild early cholecystitis Small cyst left lobe liver. Small cyst midpole left kidney the kidneys are also slightly echogenic. Rule out underlying medical renal disease.
[2017-04-06] MEDS: Simethicone 80 mg Chewtab PO SCH (17:15)
--- NOTE | 2017-04-07 00:05 | CARD ---
APPROVED REPORT EKG Measurement Heart [id number] <Conclusion> Normal sinus rhythm with sinus arrhythmia Possible Left atrial enlargement Borderline ECG
[2017-04-07] MEDS: Sodium Chloride 0.9% 1,000 ML IV SCH ×4 (01:30→21:19)
--- NOTE | 2017-04-07 06:38 | CARD ---
APPROVED REPORT EKG Measurement Heart [id number] <Conclusion> Normal sinus rhythm with sinus arrhythmia Possible Left atrial enlargement Borderline ECG
--- NOTE | 2017-04-07 06:56 | CP.PCM.PN ---
Addendum entered and electronically signed by Elma Ramos 04/07/17 15:19: Surgery Dr. Kearns consulted - f/u reccs Original Note: <Elma Ramos - Last Filed: 04/07/17 14:21> Subjective - Date & Time of Evaluation Date of Evaluation: 04/07/17 Time of Evaluation: 07:30 - Subjective Subjective: PGY1 Medicine note for Dr. Greene Patient seen and examined at bedside. Patient reported her abdominal pain had improved and she was no longer nauseous or having any episodes of emesis. She tolerated her diet this AM after being NPO overnight. She denied any BM although she is having good UO. Patient complained of a headache that felt like it was behind her eyes but denied any neck stiffness, neck pain, photophobia, lacrimation. She also denied fever, chills, chest pain, palpitation, SOB, cough , bowel/bladder complaints, pain/swelling of her legs b/l. Patient is NPO at lunch for her HIDA scan and then NPO at midnight for an EGD in the AM. Objective - Vital Signs/Intake and Output Vital Signs (last 24 hours): Temp Pulse Resp BP Pulse Ox 99.5 F 103 H 20 138/84 95 04/07/17 02:00 04/07/17 02:00 04/07/17 02:00 04/07/17 02:00 04/07/17 02:00 Intake and Output: 04/06/17 04/07/17 18:59 06:59 Intake Total 800 Balance 800 - Medications Medications: Current Medications Acetaminophen (Tylenol 325mg Tab) 650 mg PO Q6 PRN PRN Reason: Headache Last Admin: 04/07/17 00:33 Dose: 650 mg Aspirin (Aspirin Chewable) 81 mg PO DAILY [facility] Last Admin: 04/06/17 09:51 Dose: 81 mg Heparin Sodium (Porcine) (Heparin) 5,000 units SC Q12 [facility] Last Admin: 04/06/17 22:02 Dose: 5,000 units Sodium Chloride (Sodium Chloride 0.9%) 1,000 mls @ 100 mls/hr IV .Q10H [facility] Last Admin: 04/07/17 02:38 Dose: 100 mls/hr Ketorolac Tromethamine (Toradol) 30 mg IVP ONCE PRN PRN Reason: Pain, moderate (4-7) Last Admin: 04/06/17 14:44 Dose: 30 mg Ondansetron HCl (Zofran Inj) 4 mg IVP Q6H PRN PRN Reason: Nausea/Vomiting Last Admin: 04/06/17 09:50 Dose: 4 mg Pantoprazole Sodium (Protonix Inj) 40 mg IVP BID [facility] Last Admin: 04/06/17 17:16 Dose: 40 mg Rosuvastatin Calcium (Crestor) 10 mg PO HS [facility] Last Admin: 04/06/17 22:00 Dose: Not Given Simethicone (Mylicon Chew Tab) 80 mg PO TID [facility] Last Admin: 04/06/17 17:15 Dose: 80 mg - Labs Labs: 04/06/17 11:57 04/06/17 07:05 - Constitutional Appears: Non-toxic, No Acute Distress - Head Exam Head Exam: ATRAUMATIC, NORMAL INSPECTION, NORMOCEPHALIC - Eye Exam Eye Exam: Normal appearance. absent: Conjunctival injection, Scleral icterus Pupil Exam: NORMAL ACCOMODATION - ENT Exam ENT Exam: Mucous Membranes Moist - Neck Exam Neck Exam: Normal Inspection. absent: Tenderness - Respiratory Exam Respiratory Exam: Clear to Ausculation Bilateral, NORMAL BREATHING PATTERN. absent: Accessory Muscle Use, Rales, Rhonchi, Wheezes, Respiratory Distress - Cardiovascular Exam Cardiovascular Exam: REGULAR RHYTHM, RRR, +S1, +S2. absent: Murmur - GI/Abdominal Exam GI & Abdominal Exam: Soft, Tenderness (RUQ to deep palpation), Normal Bowel Sounds. absent: Distended, Firm, Guarding, Rigid - Extremities Exam Extremities Exam: Normal Capillary Refill, Normal Inspection. absent: Pedal Edema, Tenderness - Back Exam Back Exam: NORMAL INSPECTION. 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 Bullae noted at each lung base; No evidence of aortic - aneurysm. -ASA 81mg PO daily -Crestor 10mg PO HS -Morphing 4mg IVP Q4 pain prn -Toradol 30mg IVP one time for pain -Lipid panel WNL -TSH 0.45 -HgA1C 5.6 RUQ abdominal Pain -Abdominal U/S: cholelithiasis and possible polyp with GB wall thickening/ edema. Small amount of free fluid adjacent to the gallbladder. Small amount of free fluid adjacent to the gallbladder. Rule out mild early cholecystitis. Small cyst left lower lobe liver. Small cyst midpole left kdiney the kidneys are also slightly echogenic. Rule out underlying medical renal disease -f/u HIDA scan -CT Abd/pelvis with IV contrast: gallstone; scattered colonic diverticula, no evidence of diverticulitis; hyperdense appearance of right ovary. This may be related to calcification or reflect enhancement. Given the -Amylase: 42 -Lipase: 18 -FOBT : negative -Simethicone 80mg po tid -Protonix 40mg IVP BID -Zofran 4mg IVP Q6H PRN -Bismuth Subsalicylate 262mg po x 1 dose -NS @ 100cc/hr -Patient for EGD in the AM -GI Dr. Cronin consulted Headaches -likely migraine headaches -CT head: nonspecific white matter changes -Tylenol 650mg po q6 prn headache Prophylactic measures -SCDs -Protonix 40mg IVP BID -Heparin 5000U SC Q12 -Zofran 4mg IVP Q6H prn -NS @ 100cc/hr -NPO after midnight for EGD in the AM 04/[address] Jc Ramos PGY1 <Torey Greene - Last Filed: 05/11/17 16:37> Objective - Vital Signs/Intake and Output Vital Signs (last 24 hours): Temp Pulse Resp BP Pulse Ox 98.6 F 102 H 20 146/84 95 04/13/17 15:35 04/13/17 15:35 04/13/17 15:35 04/13/17 15:35 04/13/17 15:35 - Labs Labs: 04/13/17 07:22 04/13/17 07:22 PT 11.0 SECONDS (9.7-12.2) 04/10/17 08:09 INR 1.0 04/10/17 08:09 APTT 29 SECONDS (21-34) 04/10/17 08:09 Attending/Attestation - Attestation I have personally seen and examined this patient.: Yes I have fully participated in the care of the patient.: Yes I have reviewed all pertinent clinical information, including history, physical exam and plan: Yes Notes (Text): Patient Seen and examined with the resident. Agree with the resident's evaluation, assessment and plan. 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 Bullae noted at each lung base; No evidence of aortic - aneurysm. -ASA 81mg PO daily -Crestor 10mg PO HS -Morphing 4mg IVP Q4 pain prn -Toradol 30mg IVP one time for pain -Lipid panel WNL -TSH 0.45 -HgA1C 5.6 RUQ abdominal Pain -Abdominal U/S: cholelithiasis and possible polyp with GB wall thickening/ edema. Small amount of free fluid adjacent to the gallbladder. Small amount of free fluid adjacent to the gallbladder. Rule out mild early cholecystitis. Small cyst left lower lobe liver. Small cyst midpole left kdiney the kidneys are also slightly echogenic. Rule out underlying medical renal disease -f/u HIDA scan -CT Abd/pelvis with IV contrast: gallstone; scattered colonic diverticula, no evidence of diverticulitis; hyperdense appearance of right ovary. This may be related to calcification or reflect enhancement. Given the -Amylase: 42 -Lipase: 18 -FOBT : negative -Simethicone 80mg po tid -Protonix 40mg IVP BID -Zofran 4mg IVP Q6H PRN -Bismuth Subsalicylate 262mg po x 1 dose -NS @ 100cc/hr -Patient for EGD in the AM -GI Dr. Cronin consulted Headaches -likely migraine headaches -CT head: nonspecific white matter changes -Tylenol 650mg po q6 prn headache
--- NOTE | 2017-04-07 08:17 | CP.PCM.PN ---
Subjective - Date & Time of Evaluation Date of Evaluation: 04/07/17 Time of Evaluation: 08:00 - Subjective Subjective: F/u abd pain. Reports less Cp and less epig p[ain. Naus and vomiting are less. Denies Rb, melena, fever, chills, [place], cough, hematuria, hemoptysis, SZ Objective - Vital Signs/Intake and Output Vital Signs (last 24 hours): Temp Pulse Resp BP Pulse Ox 99.2 F 97 H 20 131/81 94 L 04/07/17 08:08 04/07/17 08:08 04/07/17 08:08 04/07/17 08:08 04/07/17 08:08 Intake and Output: 04/07/17 04/07/17 06:59 18:59 Intake Total 800 Balance 800 - Medications Medications: Current Medications Acetaminophen (Tylenol 325mg Tab) 650 mg PO Q6 PRN PRN Reason: Headache Last Admin: 04/07/17 00:33 Dose: 650 mg Aspirin (Aspirin Chewable) 81 mg PO DAILY [facility] Last Admin: 04/06/17 09:51 Dose: 81 mg Heparin Sodium (Porcine) (Heparin) 5,000 units SC Q12 [facility] Last Admin: 04/06/17 22:02 Dose: 5,000 units Sodium Chloride (Sodium Chloride 0.9%) 1,000 mls @ 100 mls/hr IV .Q10H [facility] Last Admin: 04/07/17 02:38 Dose: 100 mls/hr Ketorolac Tromethamine (Toradol) 30 mg IVP ONCE PRN PRN Reason: Pain, moderate (4-7) Last Admin: 04/06/17 14:44 Dose: 30 mg Ondansetron HCl (Zofran Inj) 4 mg IVP Q6H PRN PRN Reason: Nausea/Vomiting Last Admin: 04/06/17 09:50 Dose: 4 mg Pantoprazole Sodium (Protonix Inj) 40 mg IVP BID [facility] Last Admin: 04/06/17 17:16 Dose: 40 mg Rosuvastatin Calcium (Crestor) 10 mg PO HS [facility] Last Admin: 04/06/17 22:00 Dose: Not Given Simethicone (Mylicon Chew Tab) 80 mg PO TID [facility] Last Admin: 04/06/17 17:15 Dose: 80 mg - Labs Labs: 04/06/17 11:57 04/06/17 07:05 - Constitutional Appears: Non-toxic - Respiratory Exam Respiratory Exam: Clear to Ausculation Bilateral - Cardiovascular Exam Cardiovascular Exam: RRR - GI/Abdominal Exam GI & Abdominal Exam: Soft, Tenderness, Normal Bowel Sounds. absent: Guarding, Mass, Rebound Additional comments: Mild epig tenderness - Extremities Exam Extremities Exam: absent: Calf Tenderness - Neurological Exam Neurological Exam: Alert, Oriented x3 Assessment and Plan (1) Abdominal pain Assessment & Plan: Likely due to gallbladder. Consider cholecystitis with stones, thick wall, and fred-GB fluid Rec: PPI, surgery consult. Consider HIDA Status: Acute (2) Cholelithiasis Assessment & Plan: Consider cholecystitis. Status: Acute (3) Chest pain Status: Acute (4) Bronchitis Status: Acute
[2017-04-07 08:42] LABS: BASO % 0.4 % (0.0-2.0); EOS # 0.1 K/uL (0.0-0.7); EOS % 0.4 % (0.0-4.0); HEMATOCRIT 39.7 % (34.0-47.0); LYMPH # 0.7 K/uL (1.0-4.3); LYMPH % 5.7 % (20.0-40.0); MEAN CELL VOLUME 83.9 fL (81.0-99.0); MEAN CORPUSCULAR HEMOGLOBIN 28.1 pg (27.0-31.0); MEAN CORPUSCULAR HGB CONC 33.6 g/dL (33.0-37.0); MEAN PLATELET VOLUME 7.9 fL (7.2-11.7); MONO # 1.1 K/uL (0.0-0.8); MONO % 9.2 % (0.0-10.0); PLATELET COUNT 199 K/uL (130-400); RED CELL DISTRIBUTION WIDTH 15.1 % (11.5-14.5); WHITE BLOOD COUNT 12.1 K/uL (4.8-10.8)
[2017-04-07 08:56] LABS: CHLORIDE 100 mmol/L (98-107); POTASSIUM 3.9 mmol/L (3.6-5.2); SODIUM 136 mmol/L (132-148)
[2017-04-07 08:58] LABS: ALB/GLOB RATIO 0.9 (1.0-2.1); AMYLASE 42 U/L (30-110); BILIRUBIN,TOTAL 1.4 mg/dL (0.2-1.3); CARBON DIOXIDE 26 mmol/L (22-30); GFR AFRICAN-AMERICAN > 60; TOTAL PROTEIN 6.6 g/dL (6.3-8.3)
[2017-04-07 08:59] LABS: ALKALINE PHOSPHATASE 92 U/L (38-126); ALT/SGPT 29 U/L (9-52); AST/SGOT 16 U/L (14-36); BLOOD UREA NITROGEN 10 mg/dL (7-17); CALCIUM 8.9 mg/dl (8.6-10.4); GLUCOSE,RANDOM 94 mg/dL (65-105); PHOSPHOROUS 2.6 mg/dL (2.5-4.5)
[2017-04-07 09:00] LABS: MAGNESIUM 1.7 mg/dL (1.6-2.3)
[2017-04-07 09:26] LABS: EOSINOPHIL 2 % (0-4); NEUTROPHIL 80 % (50-75); TOTAL CELLS COUNTED 100
[2017-04-07] MEDS: Simethicone 80 mg Chewtab PO SCH ×3 (09:29→17:48)
--- NOTE | 2017-04-07 12:07 | CT ---
PROCEDURE: CT HEAD WITHOUT CONTRAST. HISTORY: HEADACHE COMPARISON: None available. TECHNIQUE: Axial computed tomography images were obtained through the head/brain without intravenous contrast. Radiation dose: Total exam DLP = 881.43 mGy-cm. This CT exam was performed using one or more of the following dose reduction techniques: Automated exposure control, adjustment of the mA and/or kV according to patient size, and/or use of iterative reconstruction technique. FINDINGS: HEMORRHAGE: No intracranial hemorrhage. BRAIN: No mass effect or edema. Intracranial atherosclerotic calcifications. Scattered periventricular and subcortical white matter hypodensities, which are nonspecific, but often seen with chronic microvascular ischemic disease. Please note that MRI with diffusion imaging is more sensitive in the detection of acute ischemic event. VENTRICLES: No hydrocephalus. CALVARIUM: Unremarkable. PARANASAL SINUSES: Unremarkable as visualized. No significant inflammatory changes. MASTOID AIR CELLS: Unremarkable as visualized. No inflammatory changes. OTHER FINDINGS: None. IMPRESSION: Nonspecific white matter changes.
--- NOTE | 2017-04-07 17:02 | CP.PCM.CON ---
<Marilyn Álvarez - Last Filed: 04/07/17 17:18> History of Present Illness - History of Present Illness History of Present Illness: GENERAL SURGERY CONSULT NOTE FOR DR. KEARNS 66yo F with PMHx of arthritis, back pain, glaucoma originally presented to the ED on 04/05/17 for CP. The pain began that morning while she was walking at work. The pain was midsternal, radiating to her back and bilateral upper abdomen. She had 2 episodes of vomiting. She came to the ED where she had several more episodes of vomiting. She had a cardiac workup including CXR, EKG, MAUREEN panel which was negative, CTA chest dissection protocol. The CT Abd/pelvis with IV contrast showed gallstone in GB neck; scattered colonic diverticula; no evidence of aortic aneurysm. She had a colonoscopy last month which showed diverticulosis and a large tubulovillous adenoma polyp which was resected. She is scheduled for EGD tomorrow with GI. Currently, she states that her pain is much improved. She has a CAMPOVERDE for which she had a head CT today. PMHx: arthritis, glaucoma, chronic low back pain Meds: Naproxen twice daily Surgical Hx: laminectomy with fusion of L2-4, x2, Exploratory laparotomy 40 years ago Social Hx: Denies EtOH use. Previous 2ppd smoker x 30 years (quit 13 years ago) . Former marijuana and cocaine use, last 16-17years ago. Allergies: soy (rash); NKDA Review of Systems - Review of Systems All systems: reviewed and no additional remarkable complaints except (as per HPI ) Past Patient History - Tetanus Immunizations Tetanus Immunization: Unknown - Past Medical History & Family History Past Medical History?: Yes - Past Social History Smoking Status: Former Smoker - CARDIAC Hx Cardiac Disorders: No - PULMONARY Hx Respiratory Disorders: Yes Hx Asthma: Yes - NEUROLOGICAL Hx Neurological Disorder: No - HEENT Hx HEENT Problems: Yes Hx Glaucoma: Yes - RENAL Hx Chronic Kidney Disease: No - HEMATOLOGICAL/ONCOLOGICAL Hx Blood Disorders: No Hx Blood Transfusions: No - INTEGUMENTARY Hx Dermatological Problems: No - MUSCULOSKELETAL/RHEUMATOLOGICAL Hx Musculoskeletal Disorders: Yes Hx Arthritis: Yes Hx Back Pain: Yes Hx Falls: Yes Hx Fractures: Yes (rt ankle) Hx Osteoporosis: Yes - GASTROINTESTINAL Hx Gastrointestinal Disorders: Yes - GENITOURINARY/GYNECOLOGICAL Hx Genitourinary Disorders: No - PSYCHIATRIC Hx Psychophysiologic Disorder: No Hx Substance Use: No - SURGICAL HISTORY Hx Surgeries: Yes Hx Section: Yes (x2) Other/Comment: explor lap due to vaginal tear, epidural injections for pain ,laminectomy/fusion - ANESTHESIA Hx Anesthesia: Yes Hx Anesthesia Reactions: No Hx Malignant Hyperthermia: No Meds Allergies/Adverse Reactions: Allergies Allergy/AdvReac Type Severity Reaction Status Date / Time soy Allergy Intermediate ITCHING Verified 02/17/17 09:27 - Medications Medications: Current Medications Acetaminophen (Tylenol 325mg Tab) 650 mg PO Q6 PRN PRN Reason: Headache Last Admin: 04/07/17 08:13 Dose: 650 mg Aspirin (Aspirin Chewable) 81 mg PO DAILY [facility] Last Admin: 04/07/17 09:32 Dose: 81 mg Heparin Sodium (Porcine) (Heparin) 5,000 units SC Q12 [facility] Last Admin: 04/07/17 09:30 Dose: 5,000 units Sodium Chloride (Sodium Chloride 0.9%) 1,000 mls @ 100 mls/hr IV .Q10H [facility] Last Admin: 04/07/17 10:10 Dose: Not Given Ketorolac Tromethamine (Toradol) 30 mg IVP ONCE PRN PRN Reason: Pain, moderate (4-7) Last Admin: 04/07/17 15:34 Dose: 30 mg Latanoprost (Xalatan Opht) 0 ml OU HS [facility] Ondansetron HCl (Zofran Inj) 4 mg IVP Q6H PRN PRN Reason: Nausea/Vomiting Last Admin: 04/06/17 09:50 Dose: 4 mg Pantoprazole Sodium (Protonix Inj) 40 mg IVP BID [facility] Last Admin: 04/07/17 09:29 Dose: 40 mg Rosuvastatin Calcium (Crestor) 10 mg PO HS [facility] Last Admin: 04/06/17 22:00 Dose: Not Given Simethicone (Mylicon Chew Tab) 80 mg PO TID [facility] Last Admin: 04/07/17 13:53 Dose: Not Given Physical Exam - Constitutional Appears: Non-toxic, No Acute Distress - Eye Exam Eye Exam: EOMI, Normal appearance - Neck Exam Neck exam: Positive for: Normal Inspection - Respiratory Exam Respiratory Exam: NORMAL BREATHING PATTERN. absent: Respiratory Distress - Cardiovascular Exam Cardiovascular Exam: +S1, +S2 - GI/Abdominal Exam GI & Abdominal Exam: Soft, Tenderness (tender in RUQ, mild tenderness in epigastric area). absent: Distended, Firm, Guarding, Rebound, Rigid Additional comments: Midline incision scar - Neurological Exam Neurological exam: Alert, CN II-XII Intact, Oriented x3 - Psychiatric Exam Psychiatric exam: Normal Affect, Normal Mood - Skin Skin Exam: Dry, Normal Color, Warm Results - Vital Signs Recent Vital Signs: Last Vital Signs Temp 98.8 F 04/07/17 16:00 Pulse 94 H 04/07/17 16:00 Resp 18 04/07/17 16:00 BP 147/84 04/07/17 16:00 Pulse Ox 94 L 04/07/17 16:00 - Labs Result Diagrams: 04/07/17 08:32 04/07/17 08:32 Assessment & Plan - Assessment and Plan (Free Text) Assessment: 66yo F with PMHx of arthritis, back pain, glaucoma who presented with CP, abdominal pain, and vomiting who was found to have symptomatic cholelithiasis and possible early cholecystitis - Afebrile, mild tachycardia - Mild leukocytosis WBC 12.1 - T bili 1.4 (was 0.5 on admission) - LFTs, Alk phos WNL - US: cholelithiasis and possible polyp with gallbladder wall thickening/ edema. small amount free fluid adjacent to the gallbladder- r/o mild early cholecystitis - HIDA scan: no visualization of gallbladder on first 60 mins - Going to EGD tomorrow with GI - Will do Cholecystectomy on - Discussed plan with Dr. Som Álvarez PGY-2 <Harry Kearns - Last Filed: 04/12/17 22:28> Meds - Medications Medications: Current Medications Acetaminophen (Tylenol 325mg Tab) 650 mg PO Q6H PRN PRN Reason: FEVER>100.4 Albuterol/Ipratropium (Duoneb 3 Mg/0.5 Mg (3 Ml) Ud) 3 ml INH RQ6 [facility] Last Admin: 04/12/17 20:53 Dose: Not Given Hydromorphone HCl (Dilaudid) 0.5 mg IVP Q10M PRN PRN Reason: Pain, moderate (4-7) Last Admin: 04/11/17 17:44 Dose: 0.5 mg Piperacillin Sod/Tazobactam Sod (Zosyn 3.375 Gm Iv Premix) 3.375 gm in 50 mls @ 100 mls/hr IVPB Q6H [facility] Last Admin: 04/12/17 19:02 Dose: 100 mls/hr Metronidazole (Flagyl) 500 mg in 100 mls @ 200 mls/hr IV Q8 [facility] Last Admin: 04/12/17 21:23 Dose: 200 mls/hr Latanoprost (Xalatan Opht) 0 ml OU HS [facility] Last Admin: 04/12/17 21:22 Dose: 2.5 ml Ondansetron HCl (Zofran Inj) 4 mg IVP Q6H PRN PRN Reason: Nausea/Vomiting Last Admin: 04/12/17 17:22 Dose: 4 mg Pantoprazole Sodium (Protonix Inj) 40 mg IVP BID [facility] Last Admin: 04/12/17 17:21 Dose: 40 mg Rosuvastatin Calcium (Crestor) 10 mg PO HS [facility] Last Admin: 04/12/17 21:22 Dose: 10 mg Saccharomyces Boulardii (Florastor) 250 mg PO TID [facility] Last Admin: 04/12/17 17:18 Dose: 250 mg Simethicone (Mylicon Chew Tab) 80 mg PO TID [facility] Last Admin: 04/12/17 17:19 Dose: 80 mg Tramadol HCl (Ultram) 50 mg PO TID PRN PRN Reason: Headache Last Admin: 04/12/17 20:39 Dose: 50 mg Results - Vital Signs Recent Vital Signs: Last Vital Signs Temp 98.5 F 04/12/17 16:00 Pulse 105 H 04/12/17 16:00 Resp 20 04/12/17 16:00 BP 146/82 04/12/17 16:00 Pulse Ox 96 04/12/17 16:00 - Labs Result Diagrams: 04/12/17 06:38 04/12/17 06:38 Labs: Laboratory Results - last 24 hr 04/12/17 04/12/17 06:38 06:38 WBC 9.0 RBC 3.88 Hgb 10.7 L Hct 32.5 L MCV 83.8 MCH 27.7 MCHC 33.0 RDW 14.6 H Plt Count 226 MPV 7.4 Neut % (Auto) 76.3 H Lymph % (Auto) 11.2 L Holt % (Auto) 11.1 H Eos % (Auto) 1.3 Baso % (Auto) 0.1 Neut # 6.9 Lymph # 1.0 Holt # 1.0 H Eos # 0.1 Baso # 0.0 Sodium 135 Potassium 3.6 Chloride 98 Carbon Dioxide 28 Anion Gap 13 BUN 8 Creatinine 0.8 Est GFR ( Amer) > 60 Est GFR (Non-Af Amer) > 60 Random Glucose 119 H Calcium 7.8 L Phosphorus 3.2 Magnesium 2.0 Total Bilirubin 0.6 AST 38 H D ALT 48 Alkaline Phosphatase 119 Total Protein 5.7 L Albumin 2.6 L Globulin 3.1 Albumin/Globulin Ratio 0.9 L Attending/Attestation - Attestation I have personally seen and examined this patient.: Yes I have fully participated in the care of the patient.: Yes I have reviewed all pertinent clinical information: Yes Notes (Text): 04/12/17 22:27 Pt was seen and examined at bedside on 04/08/17 Agree with above note and assessment Pt with Acute on Chronic Cholecystitis with Cholelithiasis Medical clearance C/w current mx Plan d.w pt in detail Risk and benefit explained in detail.
--- NOTE | 2017-04-07 17:54 | NM ---
PROCEDURE: Nuclear Medicine Hepatobiliary Scan HISTORY: RUQ pain COMPARISON: April 06, 2017. Abdominal ultrasound. Summary of findings on the comparison examination: Cholelithiasis and possible polyp with gallbladder wall thickening and edema. Small amount of free fluid adjacent to the gallbladder. TECHNIQUE: 5.4 mCi of technetium 99m Mebrofenin was administered intravenously. Planar images of the abdomen were obtained at 5 min intervals to 60 mins. Delayed images were also obtained. FINDINGS: LIVER: Timely and homogenous uptake. COMMON BILE DUCT: identified at 10 mins. GALLBLADDER: Does not visualize at 3.5 hours. SMALL BOWEL: Identified at 15 mins. IMPRESSION: Abnormal Hepatobiliary Scan. Nonvisualization of the gallbladder at 3.5 hours. The cystic duct is occluded.
[2017-04-07] MEDS: Latanoprost 2.5 ml Opht Soln OU SCH (22:04)
[2017-04-07 23:13] LABS: INR 1.2
--- NOTE | 2017-04-08 07:08 | CP.PCM.PN ---
Addendum entered and electronically signed by Elma Ramos 04/08/17 11:56: Patient has been started on Zosyn 3.375gm IVPB Q6 and Morphine 4mg IVP Q4 PRN for pain Diet has been restarted to low fat GI/heptaic diet Dr. 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 Original Note: <Elma Ramos - Last Filed: 04/08/17 11:19> Subjective - Date & Time of Evaluation Date of Evaluation: 04/08/17 Time of Evaluation: 07:00 - Subjective Subjective: PGY1 Medicine note for Dr. Greene Patient seen and examined at bedside. Patient was NPO overnight and was due for an EGD which was cancelled as patient's HIDA scan showed cystic duct occlusion. Patient due for cholecystectomy tomorrow 04/[address] Kearns. Patient is complaining of headaches this AM for which tylenol has not been helping and toradol in the past has not helped. Patient denied fever, chills, chest pain, palpitations, SOB, cough, vomiting, bowel/bladder complaints, pain in her legs bilaterally and swelling in her legs bilaterally. Objective - Vital Signs/Intake and Output Vital Signs (last 24 hours): Temp Pulse Resp BP Pulse Ox 98.2 F 97 H 20 125/70 99 04/08/17 00:20 04/08/17 00:20 04/08/17 00:20 04/08/17 00:20 04/08/17 00:20 - Medications Medications: Current Medications Acetaminophen (Tylenol 325mg Tab) 650 mg PO Q6 PRN PRN Reason: Headache Last Admin: 04/07/17 08:13 Dose: 650 mg Aspirin (Aspirin Chewable) 81 mg PO DAILY [facility] Last Admin: 04/07/17 09:32 Dose: 81 mg Heparin Sodium (Porcine) (Heparin) 5,000 units SC Q12 [facility] Last Admin: 04/07/17 21:18 Dose: 5,000 units Sodium Chloride (Sodium Chloride 0.9%) 1,000 mls @ 100 mls/hr IV .Q10H [facility] Last Admin: 04/07/17 21:19 Dose: 100 mls/hr Ketorolac Tromethamine (Toradol) 30 mg IVP ONCE PRN PRN Reason: Pain, moderate (4-7) Last Admin: 04/07/17 15:34 Dose: 30 mg Latanoprost (Xalatan Opht) 0 ml OU HS [facility] Last Admin: 04/07/17 22:04 Dose: 2.5 ml Morphine Sulfate (Morphine) 2 mg IVP Q4 PRN PRN Reason: Pain, moderate (4-7) Last Admin: 04/08/17 02:40 Dose: 2 mg Ondansetron HCl (Zofran Inj) 4 mg IVP Q6H PRN PRN Reason: Nausea/Vomiting Last Admin: 04/08/17 02:50 Dose: 4 mg Pantoprazole Sodium (Protonix Inj) 40 mg IVP BID [facility] Last Admin: 04/07/17 17:48 Dose: 40 mg Rosuvastatin Calcium (Crestor) 10 mg PO HS [facility] Last Admin: 04/07/17 21:17 Dose: 10 mg Simethicone (Mylicon Chew Tab) 80 mg PO TID [facility] Last Admin: 04/07/17 17:48 Dose: 80 mg - Labs Labs: PT 13.4 SECONDS (9.7-12.2) H 04/07/17 22:56 INR 1.2 04/07/17 22:56 APTT 34 SECONDS (21-34) 04/07/17 22:56 - Constitutional Appears: Non-toxic, No Acute Distress - Head Exam Head Exam: NORMAL INSPECTION - Eye Exam Eye Exam: Normal appearance. absent: Conjunctival injection, Scleral icterus - ENT Exam ENT Exam: Mucous Membranes Moist - Neck Exam Neck Exam: Normal Inspection. absent: Tenderness - Respiratory Exam Respiratory Exam: Clear to Ausculation Bilateral, NORMAL BREATHING PATTERN. absent: Accessory Muscle Use, Rales, Rhonchi, Wheezes, Respiratory Distress - Cardiovascular Exam Cardiovascular Exam: Tachycardia, REGULAR RHYTHM, +S1, +S2. absent: Murmur - GI/Abdominal Exam GI & Abdominal Exam: Soft, Tenderness (R sided abdominal pain), Normal Bowel Sounds. absent: Distended, Firm, Guarding, Rigid - Extremities Exam Extremities Exam: Normal Capillary Refill, Normal Inspection. absent: Pedal Edema, Tenderness - Back Exam Back Exam: NORMAL INSPECTION. absent: rash noted - Neurological Exam Neurological Exam: Alert, Awake, Oriented x3 - Psychiatric Exam Psychiatric exam: Normal Affect, Normal Mood - Skin Skin Exam: Dry, Intact, Normal Color, Warm Assessment and Plan - Assessment and Plan (Free Text) Assessment: 66 year old female with PMHx of arthritis and chronic low back pain who presents to the ED for chest pain Plan: RUQ abdominal Pain -Abdominal U/S: cholelithiasis and possible polyp with GB wall thickening/ edema. Small amount of free fluid adjacent to the gallbladder. Small amount of free fluid adjacent to the gallbladder. Rule out mild early cholecystitis. Small cyst left lower lobe liver. Small cyst midpole left kdiney the kidneys are also slightly echogenic. Rule out underlying medical renal disease -HIDA scan: abnl HIDA. Nonvisualization of the GB. Cystic duct is occluded. -CT Abd/pelvis with IV contrast: gallstone; scattered colonic diverticula, no evidence of diverticulitis; hyperdense appearance of right ovary. This may be related to calcification or reflect enhancement. Given the -Amylase: 42 -Lipase: 18 -FOBT : negative -Simethicone 80mg po tid -Protonix 40mg IVP BID -Zofran 4mg IVP Q6H PRN -D5NS @ 100cc/hr -EGD cancelled this AM -GI Dr. Cronin consulted -Surgery Dr. Kearns consulted Chest pain -Resolved -Hemodynamically stable -Chest Xray- no active disease -EKG- sinus arrhythmia @73bpm, no ST/T wave changes -MAUREEN negative x3 -EKG NSR with sinus arryhthmia -CTA Chest dissection protocol : centriacinar type emphysema in mid and upper lung abbott b/l R>L. Bullae noted at each lung base; No evidence of aortic - aneurysm. -ASA 81mg PO daily -Crestor 10mg PO HS -Morphine 4mg IVP Q4 pain prn -Lipid panel WNL -TSH 0.45 -HgA1C 5.6 Headaches -likely migraine headaches -CT head: nonspecific white matter changes -Tylenol 650mg po q6 prn headache -Neuro consult: Dr. Jorge Holm Glaucoma -Xalatan opth OU HS Prophylactic measures -SCDs -Protonix 40mg IVP BID -Heparin 5000U SC Q12 -Zofran 4mg IVP Q6H prn -Morphine 2mg IVP Q4 prn pain -D5NS @ 100cc/hr -NPO Plan discussed with Dr. Jc Ramos PGY1 <Torey Greene - Last Filed: 05/12/17 15:21> Objective - Vital Signs/Intake and Output Vital Signs (last 24 hours): Temp Pulse Resp BP Pulse Ox 98.6 F 102 H 20 146/84 95 04/13/17 15:35 04/13/17 15:35 04/13/17 15:35 04/13/17 15:35 04/13/17 15:35 - Labs Labs: 04/13/17 07:22 04/13/17 07:22 PT 11.0 SECONDS (9.7-12.2) 04/10/17 08:09 INR 1.0 04/10/17 08:09 APTT 29 SECONDS (21-34) 04/10/17 08:09 Attending/Attestation - Attestation I have personally seen and examined this patient.: Yes I have fully participated in the care of the patient.: Yes I have reviewed all pertinent clinical information, including history, physical exam and plan: Yes Notes (Text): Patient Seen and examined with the resident. Agree with the resident's evaluation, assessment and plan. 66 year old female with PMHx of arthritis and chronic low back pain who presents to the ED for chest pain Plan: RUQ abdominal Pain -Abdominal U/S: cholelithiasis and possible polyp with GB wall thickening/ edema. Chest pain ruled out for acute myocardial infarction. Possibly referred abdominal pain
[2017-04-08 07:19] LABS: BASO % 0.2 % (0.0-2.0); EOS # 0.1 K/uL (0.0-0.7); EOS % 0.6 % (0.0-4.0); HEMATOCRIT 37.4 % (34.0-47.0); LYMPH # 0.8 K/uL (1.0-4.3); LYMPH % 7.2 % (20.0-40.0); MEAN CELL VOLUME 83.5 fL (81.0-99.0); MEAN CORPUSCULAR HGB CONC 33.6 g/dL (33.0-37.0); MEAN PLATELET VOLUME 7.8 fL (7.2-11.7); MONO # 0.8 K/uL (0.0-0.8); MONO % 7.4 % (0.0-10.0); PLATELET COUNT 191 K/uL (130-400); RED CELL DISTRIBUTION WIDTH 14.6 % (11.5-14.5); WHITE BLOOD COUNT 10.7 K/uL (4.8-10.8)
[2017-04-08 07:24] LABS: INR 1.1
[2017-04-08 07:41] LABS: CHLORIDE 101 mmol/L (98-107); POTASSIUM 3.7 mmol/L (3.6-5.2); SODIUM 135 mmol/L (132-148)
[2017-04-08 07:43] LABS: AST/SGOT 14 U/L (14-36); CARBON DIOXIDE 26 mmol/L (22-30); GFR AFRICAN-AMERICAN > 60
[2017-04-08 07:44] LABS: ALKALINE PHOSPHATASE 81 U/L (38-126); ALT/SGPT 21 U/L (9-52); BLOOD UREA NITROGEN 12 mg/dL (7-17); CALCIUM 8.3 mg/dl (8.6-10.4); GLUCOSE,RANDOM 90 mg/dL (65-105); PHOSPHOROUS 2.5 mg/dL (2.5-4.5); TOTAL PROTEIN 6.1 g/dL (6.3-8.3)
[2017-04-08 07:45] LABS: MAGNESIUM 1.8 mg/dL (1.6-2.3)
[2017-04-08 08:28] LABS: NEUTROPHIL 82 % (50-75); TOTAL CELLS COUNTED 100
[2017-04-08] MEDS: Simethicone 80 mg Chewtab PO SCH ×3 (10:13→17:40)
--- NOTE | 2017-04-08 12:05 | CP.PCM.PN ---
Subjective - Date & Time of Evaluation Date of Evaluation: 04/08/17 Time of Evaluation: 12:02 - Subjective Subjective: CC: Follow up abdominal pain HIDA confirms cholecystitis. Patient has upper abdominal pain and chest pain with deep inspiration. No fevers. Discussed with surgical attending and resident- patient will be scheduled for cholecystectomy. Objective - Vital Signs/Intake and Output Vital Signs (last 24 hours): Temp Pulse Resp BP Pulse Ox 98.2 F 93 H 18 131/77 93 L 04/08/17 08:26 04/08/17 08:26 04/08/17 08:26 04/08/17 08:26 04/08/17 08:26 - Medications Medications: Current Medications Acetaminophen (Tylenol 325mg Tab) 650 mg PO Q6 PRN PRN Reason: Headache Last Admin: 04/07/17 08:13 Dose: 650 mg Aspirin (Aspirin Chewable) 81 mg PO DAILY [facility] Last Admin: 04/08/17 10:13 Dose: Not Given Heparin Sodium (Porcine) (Heparin) 5,000 units SC Q12 [facility] Last Admin: 04/07/17 21:18 Dose: 5,000 units Dextrose/Sodium Chloride (Dextrose 5%/0.9% Ns 1000 Ml) 1,000 mls @ 100 mls/hr IV .Q10H [facility] Piperacillin Sod/Tazobactam Sod (Zosyn 3.375 Gm Iv Premix) 3.375 gm in 50 mls @ 100 mls/hr IVPB Q6H [facility] Ketorolac Tromethamine (Toradol) 30 mg IVP ONCE PRN PRN Reason: Pain, moderate (4-7) Last Admin: 04/07/17 15:34 Dose: 30 mg Latanoprost (Xalatan Opht) 0 ml OU HS [facility] Last Admin: 04/07/17 22:04 Dose: 2.5 ml Morphine Sulfate (Morphine) 4 mg IVP Q4 PRN PRN Reason: Pain, moderate (4-7) Ondansetron HCl (Zofran Inj) 4 mg IVP Q6H PRN PRN Reason: Nausea/Vomiting Last Admin: 04/08/17 10:20 Dose: 4 mg Pantoprazole Sodium (Protonix Inj) 40 mg IVP BID [facility] Last Admin: 04/08/17 10:20 Dose: 40 mg Rosuvastatin Calcium (Crestor) 10 mg PO HS [facility] Last Admin: 04/07/17 21:17 Dose: 10 mg Simethicone (Mylicon Chew Tab) 80 mg PO TID [facility] Last Admin: 04/08/17 10:13 Dose: Not Given - Labs Labs: 04/08/17 07:00 04/08/17 07:00 PT 12.2 SECONDS (9.7-12.2) 04/08/17 07:00 INR 1.1 04/08/17 07:00 APTT 32 SECONDS (21-34) 04/08/17 07:00 - Constitutional Appears: No Acute Distress, Chronically Ill - Head Exam Head Exam: NORMOCEPHALIC - Eye Exam Eye Exam: absent: Scleral icterus - Respiratory Exam Respiratory Exam: NORMAL BREATHING PATTERN - Cardiovascular Exam Cardiovascular Exam: REGULAR RHYTHM - GI/Abdominal Exam GI & Abdominal Exam: Soft, Tenderness, Normal Bowel Sounds. absent: Guarding Assessment and Plan (1) Chest pain Assessment & Plan: Due to cholecystitis Status: Acute (2) Cholecystitis, acute with cholelithiasis Assessment & Plan: Rec: Bowel rest. Cholecystectomy- to be scheduled per surgery team. Planned EGD cancelled - not necessary. Status: Acute
--- NOTE | 2017-04-08 12:35 | CON ---
DATE: 04/08/2017 REASON FOR CONSULTATION: Headaches. HISTORY OF PRESENT ILLNESS: The patient is a 66-year-old female who has been asked for evaluation of headaches. The patient was admitted with abdominal pain and is going to go for a cholecystectomy. The patient has been noticing headaches over the last 3-4 days. Headaches are described as pressure- like, mostly on the sides of the head on the back of her eyes. Headaches are not associated with any nausea, vomiting. Denies any blurring of vision or photophobia. Denies any photophobia. She never gets headaches like this before. Denies any other complaints. REVIEW OF SYSTEMS: Denies any chest pain, shortness of breath. Positive for abdominal pain. Denies any constipation, diarrhea, dysuria, pyuria, cough, sputum production, hallucinations, skin rash, ab normal swelling of the glands. PAST MEDICAL HISTORY: Arthritis and chronic low back pain. MEDICATIONS AT HOME: Include naproxen. CURRENT MEDICATIONS: Include aspirin, Crestor, morphine p.r.n., Protonix, Tylenol, Xalatan, Zofran a nd Zosyn. ALLERGIES: SOY. SOCIAL HISTORY: She is a former smoker. Denies current smoking. Denies use of alcohol or illicit d rugs. FAMILY HISTORY: Reviewed and noncontributory to the case. PHYSICAL EXAMINATION: GENERAL: The patient is a middle-aged to elderly female lying on the bed in no acute distress. VITAL SIGNS: Her blood pressure is 131/77, heart rate is 93 per minute, breathing at a rate of 16 pe r minute, temperature is 98.2 degrees Fahrenheit. HEENT: Normocephalic, atraumatic. NECK: Supple. There are no carotid bruits. LUNGS: Clear. CARDIOVASCULAR: S1, S2 audible. No murmurs. ABDOMEN: Soft, nontender, bowel sounds present. NEUROLOGIC EXAMINATION: MENTAL STATUS: The patient is awake, alert, oriented to time, place, person. Speech is fluent. Nam ing and repetition normal. Memory and cognition are intact. CRANIAL NERVE EXAMINATION: Pupils are 4 mm bilaterally reactive to light. Visual abbott are full. Extraocular movements are intact. There is no facial asymmetry. Palate is upgoing bilaterally and t ongue is midline. MOTOR EXAMINATION: Tone is normal. Power is 5/5 bilaterally in all extremities. Reflexes +1 and sy mmetrical. Plantars downgoing bilaterally. CEREBELLAR: Csdlmg-wm-[id number] shows no dysmetria. Gait is deferred at the moment. There is no Kernig or Brudzinski sign. LABORATORY DATA: Labs reviewed, shows WBC of 10.7, hemoglobin 12.5, hematocrit of 37.4 and platelets of 191. Her sodium is 135, potassium 3.7, chloride 101, carbon dioxide content 26, BUN of 12, creat inine of 0.8, and glucose of 90. She had a CT scan of the head done which shows no acute intracrania l pathology. IMPRESSION: New onset of headaches. This appears to be tension type. RECOMMENDATIONS: 1. I will start the patient on tramadol to be taken on an as needed basis for headaches. The patien t has been taking morphine, however, is making her nauseous. 2. The patient to have MRI of the brain without contrast. 3. The patient also to have an ESR. 4. Please continue other treatment. Thank you for the opportunity to participate in the care of this patient. Elsie Holm MD cc: [id number] TT: 04/08/2017 12:35:08 Confirmation # [id number] Dictation # [id number]
[2017-04-08 14:11] LABS: ERYTHROCYTE SEDIMENTATION RATE 81 mm/hr (0-20)
--- NOTE | 2017-04-08 14:15 | CP.PCM.PN ---
<Tawana Crenshaw DO - Last Filed: 04/08/17 14:07> Subjective - Date & Time of Evaluation Date of Evaluation: 04/08/17 Time of Evaluation: 07:45 - Subjective Subjective: PGY1 Progress Note for Dr. Kearns: Patient seen and examined. Patient not currently complaining of abdominal pain. Patient denies nausea and vomiting. Patient not going for EGD today as HIDA possible. Objective - Vital Signs/Intake and Output Vital Signs (last 24 hours): Temp Pulse Resp BP Pulse Ox 98.2 F 93 H 18 131/77 93 L 04/08/17 08:26 04/08/17 08:26 04/08/17 08:26 04/08/17 08:26 04/08/17 08:26 - Medications Medications: Current Medications Aspirin (Aspirin Chewable) 81 mg PO DAILY [facility] Last Admin: 04/08/17 10:13 Dose: Not Given Heparin Sodium (Porcine) (Heparin) 5,000 units SC Q12 [facility] Last Admin: 04/07/17 21:18 Dose: 5,000 units Dextrose/Sodium Chloride (Dextrose 5%/0.9% Ns 1000 Ml) 1,000 mls @ 100 mls/hr IV .Q10H [facility] Piperacillin Sod/Tazobactam Sod (Zosyn 3.375 Gm Iv Premix) 3.375 gm in 50 mls @ 100 mls/hr IVPB Q6H [facility] Latanoprost (Xalatan Opht) 0 ml OU HS [facility] Last Admin: 04/07/17 22:04 Dose: 2.5 ml Morphine Sulfate (Morphine) 4 mg IVP Q4 PRN PRN Reason: Pain, moderate (4-7) Ondansetron HCl (Zofran Inj) 4 mg IVP Q6H PRN PRN Reason: Nausea/Vomiting Last Admin: 04/08/17 10:20 Dose: 4 mg Pantoprazole Sodium (Protonix Inj) 40 mg IVP BID [facility] Last Admin: 04/08/17 10:20 Dose: 40 mg Rosuvastatin Calcium (Crestor) 10 mg PO HS [facility] Last Admin: 04/07/17 21:17 Dose: 10 mg Simethicone (Mylicon Chew Tab) 80 mg PO TID [facility] Last Admin: 04/08/17 10:13 Dose: Not Given Tramadol HCl (Ultram) 50 mg PO TID PRN PRN Reason: Headache - Labs Labs: 04/08/17 07:00 04/08/17 07:00 PT 12.2 SECONDS (9.7-12.2) 04/08/17 07:00 INR 1.1 04/08/17 07:00 APTT 32 SECONDS (21-34) 04/08/17 07:00 - Constitutional Appears: No Acute Distress - Head Exam Head Exam: ATRAUMATIC, NORMOCEPHALIC - Eye Exam Eye Exam: EOMI - GI/Abdominal Exam GI & Abdominal Exam: Soft, Tenderness (epigastric and RUQ ) - Neurological Exam Neurological Exam: Alert, Awake - Psychiatric Exam Psychiatric exam: Normal Affect - Skin Skin Exam: Warm Assessment and Plan - Assessment and Plan (Free Text) Assessment: 66yo F with PMHx of arthritis, back pain, glaucoma who presented with CP, abdominal pain, and vomiting who was found to have symptomatic cholelithiasis and cholecystitis - tentatively plan for OR Thursday pending pulmonary clearance due to emphysematous changes and bulla seen on CT, Dr. Enriquez consulted - starting zosyn, increased morphine - US: cholelithiasis and possible polyp with gallbladder wall thickening/ edema. small amount free fluid adjacent to the gallbladder- r/o mild early cholecystitis - HIDA scan: no visualization of gallbladder at 3.5hours, cystic duct is occluded - D/W Dr. Kearns <Harry Kearns - Last Filed: 04/12/17 22:30> Objective - Vital Signs/Intake and Output Vital Signs (last 24 hours): Temp Pulse Resp BP Pulse Ox 98.5 F 105 H 20 146/82 96 04/12/17 16:00 04/12/17 16:00 04/12/17 16:00 04/12/17 16:00 04/12/17 16:00 Intake and Output: 04/12/17 04/13/17 18:59 06:59 Intake Total 400 100 Output Total 10 10 Balance 390 90 - Medications Medications: Current Medications Acetaminophen (Tylenol 325mg Tab) 650 mg PO Q6H PRN PRN Reason: FEVER>100.4 Albuterol/Ipratropium (Duoneb 3 Mg/0.5 Mg (3 Ml) Ud) 3 ml INH RQ6 [facility] Last Admin: 04/12/17 20:53 Dose: Not Given Hydromorphone HCl (Dilaudid) 0.5 mg IVP Q10M PRN PRN Reason: Pain, moderate (4-7) Last Admin: 04/11/17 17:44 Dose: 0.5 mg Piperacillin Sod/Tazobactam Sod (Zosyn 3.375 Gm Iv Premix) 3.375 gm in 50 mls @ 100 mls/hr IVPB Q6H [facility] Last Admin: 04/12/17 19:02 Dose: 100 mls/hr Metronidazole (Flagyl) 500 mg in 100 mls @ 200 mls/hr IV Q8 [facility] Last Admin: 04/12/17 21:23 Dose: 200 mls/hr Latanoprost (Xalatan Opht) 0 ml OU HS [facility] Last Admin: 04/12/17 21:22 Dose: 2.5 ml Ondansetron HCl (Zofran Inj) 4 mg IVP Q6H PRN PRN Reason: Nausea/Vomiting Last Admin: 04/12/17 17:22 Dose: 4 mg Pantoprazole Sodium (Protonix Inj) 40 mg IVP BID [facility] Last Admin: 04/12/17 17:21 Dose: 40 mg Rosuvastatin Calcium (Crestor) 10 mg PO HS [facility] Last Admin: 04/12/17 21:22 Dose: 10 mg Saccharomyces Boulardii (Florastor) 250 mg PO TID [facility] Last Admin: 04/12/17 17:18 Dose: 250 mg Simethicone (Mylicon Chew Tab) 80 mg PO TID [facility] Last Admin: 04/12/17 17:19 Dose: 80 mg Tramadol HCl (Ultram) 50 mg PO TID PRN PRN Reason: Headache Last Admin: 04/12/17 20:39 Dose: 50 mg - Labs Labs: 04/12/17 06:38 04/12/17 06:38 PT 11.0 SECONDS (9.7-12.2) 04/10/17 08:09 INR 1.0 04/10/17 08:09 APTT 29 SECONDS (21-34) 04/10/17 08:09 Attending/Attestation - Attestation I have personally seen and examined this patient.: Yes I have fully participated in the care of the patient.: Yes I have reviewed all pertinent clinical information, including history, physical exam and plan: Yes Notes (Text): 04/12/17 22:29 Pt was seen and examined at bedside on 04/08/17 Agree with above note and assessment Medical Clearance for Emphysema and COPD Plan d.w pt and Primary team We will f.u
--- NOTE | 2017-04-08 14:38 | CP.PCM.CON ---
History of Present Illness - History of Present Illness History of Present Illness: Reason for consultation: Emphysematous changes on CAT scan Patient is a 66 year old female with PMHx of arthritis and chronic low back pain and smoking quit many years ago, presented to the ED after she developed chest pain. Patient was walking while at work when she had sudden onset midsternal chest pain, Pain was described as sharp pressure, 8/10, and radiating to her back. Patient sat down and had 2 episodes of non-bilious, non- bloody vomiting. CT angiogram negative for dissection but showed emphysematous changes. Patient denies shortness of breath, denies cough, denies fever or chills. Patient states that she walks every day without trouble breathing. PMHx: arthritis and chronic low back pain Meds: Naproxen twice daily Surgical Hx: laminectomy with fusion of L2-4, x2 Family Hx: Mom from natural causes at age 91, Dad- DM (no family history of PR) Social Hx: Denies EtOH use. Previous 2ppd smoker x 30 years (quit 13 years ago) . Denies illicit drug use. Works at [employer] in maintenance. Allergies: soy (rash); NKDA Past Patient History - Tetanus Immunizations Tetanus Immunization: Unknown - Past Medical History & Family History Past Medical History?: Yes - Past Social History Smoking Status: Former Smoker - CARDIAC Hx Cardiac Disorders: No - PULMONARY Hx Respiratory Disorders: Yes Hx Asthma: Yes - NEUROLOGICAL Hx Neurological Disorder: No - HEENT Hx HEENT Problems: Yes Hx Glaucoma: Yes - RENAL Hx Chronic Kidney Disease: No - HEMATOLOGICAL/ONCOLOGICAL Hx Blood Disorders: No Hx Blood Transfusions: No - INTEGUMENTARY Hx Dermatological Problems: No - MUSCULOSKELETAL/RHEUMATOLOGICAL Hx Musculoskeletal Disorders: Yes Hx Arthritis: Yes Hx Back Pain: Yes Hx Falls: Yes Hx Fractures: Yes (rt ankle) Hx Osteoporosis: Yes - GASTROINTESTINAL Hx Gastrointestinal Disorders: Yes - GENITOURINARY/GYNECOLOGICAL Hx Genitourinary Disorders: No - PSYCHIATRIC Hx Psychophysiologic Disorder: No Hx Substance Use: No - SURGICAL HISTORY Hx Surgeries: Yes Hx Section: Yes (x2) Other/Comment: explor lap s due to vaginal tear, epidural injections for pain ,laminectomy/fusion - ANESTHESIA Hx Anesthesia: Yes Hx Anesthesia Reactions: No Hx Malignant Hyperthermia: No Meds Allergies/Adverse Reactions: Allergies Allergy/AdvReac Type Severity Reaction Status Date / Time soy Allergy Intermediate ITCHING Verified 02/17/17 09:27 - Medications Medications: Current Medications Aspirin (Aspirin Chewable) 81 mg PO DAILY [facility] Last Admin: 04/08/17 10:13 Dose: Not Given Heparin Sodium (Porcine) (Heparin) 5,000 units SC Q12 [facility] Last Admin: 04/07/17 21:18 Dose: 5,000 units Dextrose/Sodium Chloride (Dextrose 5%/0.9% Ns 1000 Ml) 1,000 mls @ 100 mls/hr IV .Q10H [facility] Piperacillin Sod/Tazobactam Sod (Zosyn 3.375 Gm Iv Premix) 3.375 gm in 50 mls @ 100 mls/hr IVPB Q6H [facility] Latanoprost (Xalatan Opht) 0 ml OU HS [facility] Last Admin: 04/07/17 22:04 Dose: 2.5 ml Morphine Sulfate (Morphine) 4 mg IVP Q4 PRN PRN Reason: Pain, moderate (4-7) Ondansetron HCl (Zofran Inj) 4 mg IVP Q6H PRN PRN Reason: Nausea/Vomiting Last Admin: 04/08/17 10:20 Dose: 4 mg Pantoprazole Sodium (Protonix Inj) 40 mg IVP BID [facility] Last Admin: 04/08/17 10:20 Dose: 40 mg Rosuvastatin Calcium (Crestor) 10 mg PO HS [facility] Last Admin: 04/07/17 21:17 Dose: 10 mg Simethicone (Mylicon Chew Tab) 80 mg PO TID [facility] Last Admin: 04/08/17 10:13 Dose: Not Given Tramadol HCl (Ultram) 50 mg PO TID PRN PRN Reason: Headache Physical Exam - Constitutional Appears: No Acute Distress - Head Exam Head Exam: ATRAUMATIC, NORMOCEPHALIC - Eye Exam Eye Exam: Normal appearance - ENT Exam ENT Exam: Mucous Membranes Moist - Neck Exam Neck exam: Positive for: Normal Inspection - Respiratory Exam Respiratory Exam: Clear to Auscultation Bilateral - Cardiovascular Exam Cardiovascular Exam: REGULAR RHYTHM - Extremities Exam Extremities exam: Positive for: normal inspection - Neurological Exam Neurological exam: Alert, Oriented x3 Results - Vital Signs Recent Vital Signs: Last Vital Signs Temp 98.2 F 04/08/17 08:26 Pulse 93 H 04/08/17 08:26 Resp 18 04/08/17 08:26 BP 131/77 04/08/17 08:26 Pulse Ox 93 L 04/08/17 08:26 - Labs Result Diagrams: 04/08/17 07:00 04/08/17 07:00 Labs: Laboratory Results - last 24 hr 04/07/17 04/08/17 04/08/17 22:56 07:00 07:00 WBC 10.7 RBC 4.47 Hgb 12.5 Hct 37.4 MCV 83.5 MCH 28.0 MCHC 33.6 RDW 14.6 H Plt Count 191 MPV 7.8 Neut % (Auto) 84.6 H Lymph % (Auto) 7.2 L [place] % (Auto) 7.4 Eos % (Auto) 0.6 Baso % (Auto) 0.2 Neut # 9.0 H Lymph # 0.8 L [place] # 0.8 Eos # 0.1 Baso # 0.0 Neutrophils % (Manual) 82 H Lymphocytes % (Manual) 9 L Monocytes % (Manual) 9 Platelet Estimate Normal RBC Morphology Normal ESR 81 H PT 13.4 H INR 1.2 APTT 34 Sodium 135 Potassium 3.7 Chloride 101 Carbon Dioxide 26 Anion Gap 12 BUN 12 Creatinine 0.8 Est GFR ( Amer) > 60 Est GFR (Non-Af Amer) > 60 Random Glucose 90 Calcium 8.3 L Phosphorus 2.5 Magnesium 1.8 Total Bilirubin 1.0 AST 14 ALT 21 Alkaline Phosphatase 81 Total Protein 6.1 L Albumin 3.0 L Globulin 3.1 Albumin/Globulin Ratio 1.0 04/08/17 07:00 WBC RBC Hgb Hct MCV MCH MCHC RDW Plt Count MPV Neut % (Auto) Lymph % (Auto) [place] % (Auto) Eos % (Auto) Baso % (Auto) Neut # Lymph # [place] # Eos # Baso # Neutrophils % (Manual) Lymphocytes % (Manual) Monocytes % (Manual) Platelet Estimate RBC Morphology ESR PT 12.2 INR 1.1 APTT 32 Sodium Potassium Chloride Carbon Dioxide Anion Gap BUN Creatinine Est GFR ( Amer) Est GFR (Non-Af Amer) Random Glucose Calcium Phosphorus Magnesium Total Bilirubin AST ALT Alkaline Phosphatase Total Protein Albumin Globulin Albumin/Globulin Ratio Assessment & Plan (1) Emphysema of lung Status: Acute Comment: Emphysematous changes on CAT scan of the chest. Patient completely asymptomatic. We will order ABG and start nebulizer treatment
[2017-04-08] MEDS: Piperacill/Tazo 3.375gm in Dex 3.375 GM/50 ML BAG IVPB SCH ×2 (14:41→20:00)
[2017-04-08] MEDS: Dextrose 5%/0.9% NS 1,000 ML IV SCH (14:43)
--- NOTE | 2017-04-08 14:47 | MRI ---
PROCEDURE: MRI BRAIN WITHOUT CONTRAST HISTORY: headache COMPARISON: Comparison made with CT scan brain 04/07/2017 TECHNIQUE: Multiplanar, multisequence MR images of the brain were obtained without intravenous contrast enhancement. FINDINGS: HEMORRHAGE: No acute parenchymal, subarachnoid nor extra-axial hemorrhage. No hemosiderin deposition identified on the gradient echo weighted sequence. DWI: No acute or subacute infarcts seen on diffusion imaging. BRAIN PARENCHYMA: Multiple small focal areas of increased T2 signal seen scattered about the deep and subcortical white matter both cerebral hemispheres. . Changes most likely represent chronic sequela of small vessel disease. Differential diagnosis would include sequela of migraine headaches, old trauma, post infectious or inflammatory etiology. . There are no parenchymal nor extra-axial masses or collections seen on this noncontrast study. Mild generalized volume loss. VENTRICLES: No evidence of obstructive type hydrocephalus CRANIUM: Hyperostosis frontalis interna again noted. . There is a small rounded focus of right T1 and slight increased T2 signal in the left parasagittal superior parietal calvarium corresponding to a lucency in this location. This exhibits fat signal and diminishes slightly on T2. Root there is still small dermoid/epidermoid ORBITS: Orbits appear grossly normal as well. PARANASAL SINUSES/MASTOIDS: Visualized paranasal sinuses well-developed and currently well-aerated. VASCULAR SYSTEM: Visualized major vascular flow voids at skull base are patent. OTHER FINDINGS: None. IMPRESSION: No acute intracranial hemorrhage or infarct. Chronic appearing white matter ischemic changes as described. Mild generalized volume loss. Small rounded focus of bright T1 and T2 signal within the left parasagittal posterior superior parietal calvarium could represented dermoid/ epidermoid. Followup interval recommended to assess stability.
[2017-04-08 20:24] LABS: ABG ALLEN TEST POS; ARTERIAL BLOOD HGB O2 SAT 82.8 % (95.0-98.0); CARBOXYHEMOGLOBIN 2.1 % (0.5-1.5); DRAW SITE RRA; HHB 13.7 % (0.0-5.0); METHEMOGLOBIN 1.3 % (0.0-3.0)
[2017-04-08] MEDS: Latanoprost 2.5 ml Opht Soln OU SCH (22:01)
[2017-04-09] MEDS: Albuterol-Ipratrop 3 mg / 0.5 (3 ml) UD INH SCH ×2 (01:37→18:50)
[2017-04-09] MEDS ORDERED: Morphine 4 MG/ML VIAL ONE (05:56)
[2017-04-09 08:26] LABS: BASO % 0.3 % (0.0-2.0); EOS # 0.1 K/uL (0.0-0.7); EOS % 0.6 % (0.0-4.0); HEMATOCRIT 34.6 % (34.0-47.0); LYMPH # 0.7 K/uL (1.0-4.3); LYMPH % 5.4 % (20.0-40.0); MEAN CELL VOLUME 83.5 fL (81.0-99.0); MEAN CORPUSCULAR HEMOGLOBIN 27.4 pg (27.0-31.0); MEAN CORPUSCULAR HGB CONC 32.8 g/dL (33.0-37.0); MEAN PLATELET VOLUME 7.8 fL (7.2-11.7); MONO # 1.1 K/uL (0.0-0.8); MONO % 9.3 % (0.0-10.0); PLATELET COUNT 197 K/uL (130-400); RED CELL DISTRIBUTION WIDTH 14.6 % (11.5-14.5); WHITE BLOOD COUNT 12.3 K/uL (4.8-10.8)
[2017-04-09 08:31] LABS: CHLORIDE 97 mmol/L (98-107)
[2017-04-09 08:39] LABS: POTASSIUM 3.5 mmol/L (3.6-5.2); SODIUM 132 mmol/L (132-148)
[2017-04-09 08:40] LABS: BILIRUBIN,TOTAL 0.9 mg/dL (0.2-1.3); GFR AFRICAN-AMERICAN > 60
[2017-04-09 08:41] LABS: ALB/GLOB RATIO 0.9 (1.0-2.1); ALKALINE PHOSPHATASE 89 U/L (38-126); ALT/SGPT 22 U/L (9-52); AST/SGOT 19 U/L (14-36); BLOOD UREA NITROGEN 9 mg/dL (7-17); CALCIUM 7.9 mg/dl (8.6-10.4); CARBON DIOXIDE 25 mmol/L (22-30); GLUCOSE,RANDOM 133 mg/dL (65-105); MAGNESIUM 1.7 mg/dL (1.6-2.3); PHOSPHOROUS 2.3 mg/dL (2.5-4.5)
[2017-04-09] MEDS ORDERED: Saccharomyces Boulardi 250 mg Cap ONE (12:53)
[2017-04-09] MEDS ORDERED: Potassium Chloride 20 mEq ER Tab PO ONE (14:28)
[2017-04-09] MEDS ORDERED: Magnesium Sulfate 1 gm in D5W 1 GM/100 ML BAG IVPB ONE (17:06)
--- NOTE | 2017-04-09 19:58 | CP.PCM.PCO ---
Physician Communication Note - Physician Communication Note Physician Communication Note: written note in chart secondary to meditech outage
[2017-04-09] MEDS: Latanoprost 2.5 ml Opht Soln OU SCH (21:21)
[2017-04-10] MEDS: Piperacill/Tazo 3.375gm in Dex 3.375 GM/50 ML BAG IVPB SCH ×4 (00:54→20:52)
[2017-04-10] MEDS: Albuterol-Ipratrop 3 mg / 0.5 (3 ml) UD INH SCH ×5 (01:39→19:40)
[2017-04-10] MEDS: metroNIDAZOLE IV 500 mg/100 ml 500 MG/100 ML BAG IV SCH ×5 (05:52→22:17)
--- NOTE | 2017-04-10 08:03 | CP.PCM.PN ---
<Crispin Ramosima - Last Filed: 04/10/17 16:42> Subjective - Date & Time of Evaluation Date of Evaluation: 04/10/17 Time of Evaluation: 07:15 - Subjective Subjective: PGY1 Medicine note for Dr. Greene Pt seen and examined at bedside. Nursing reports no adverse events overnight. Today patient is comfortable and in no acute distress. She states she is ready for surgery and has no complaints. She reports having a headache earlier in the morning, but says it resolved with the pain medication. She states the pain in her abdomen is well managed and that she only experiences pain when the area is palpated. Pt denies fever, chills, dizziness, headache, chest pain, shortness of breath, nausea, vomiting, bowel/bladder complaints, swelling/pain in legs. Objective - Vital Signs/Intake and Output Vital Signs (last 24 hours): Temp Pulse Resp BP Pulse Ox 98.2 F 88 18 125/75 96 04/10/17 00:00 04/10/17 00:00 04/10/17 00:00 04/10/17 00:00 04/10/17 00:00 Intake and Output: 04/10/17 04/10/17 06:59 18:59 Intake Total 800 Balance 800 - Medications Medications: Current Medications Acetaminophen (Tylenol 325mg Tab) 650 mg PO Q6H PRN PRN Reason: FEVER>100.4 Albuterol/Ipratropium (Duoneb 3 Mg/0.5 Mg (3 Ml) Ud) 3 ml INH RQ6 [facility] Last Admin: 04/10/17 07:18 Dose: 3 ml Dextrose/Sodium Chloride (Dextrose 5%/0.9% Ns 1000 Ml) 1,000 mls @ 100 mls/hr IV .Q10H [facility] Last Admin: 04/08/17 14:43 Dose: 100 mls/hr Piperacillin Sod/Tazobactam Sod (Zosyn 3.375 Gm Iv Premix) 3.375 gm in 50 mls @ 100 mls/hr IVPB Q6H [facility] Last Admin: 04/10/17 06:55 Dose: 100 mls/hr Metronidazole (Flagyl) 500 mg in 100 mls @ 200 mls/hr IV Q8 [facility] Last Admin: 04/10/17 05:53 Dose: 200 mls/hr Latanoprost (Xalatan Opht) 0 ml OU [facility] Last Admin: 04/09/17 21:21 Dose: 2.5 ml Morphine Sulfate (Morphine) 4 mg IVP Q4 PRN PRN Reason: Pain, moderate (4-7) Last Admin: 04/10/17 07:01 Dose: 4 mg Ondansetron HCl (Zofran Inj) 4 mg IVP Q6H PRN PRN Reason: Nausea/Vomiting Last Admin: 04/10/17 07:06 Dose: 4 mg Pantoprazole Sodium (Protonix Inj) 40 mg IVP BID [facility] Last Admin: 04/08/17 17:40 Dose: 40 mg Rosuvastatin Calcium (Crestor) 10 mg PO HS [facility] Last Admin: 04/09/17 21:21 Dose: 10 mg Saccharomyces Boulardii (Florastor) 250 mg PO TID [facility] Simethicone (Mylicon Chew Tab) 80 mg PO TID [facility] Last Admin: 04/08/17 17:40 Dose: 80 mg Tramadol HCl (Ultram) 50 mg PO TID PRN PRN Reason: Headache Last Admin: 04/10/17 05:15 Dose: 50 mg - Labs Labs: 04/09/17 04:00 04/09/17 04:00 PT 12.2 SECONDS (9.7-12.2) 04/08/17 07:00 INR 1.1 04/08/17 07:00 APTT 32 SECONDS (21-34) 04/08/17 07:00 - Constitutional Appears: Non-toxic, No Acute Distress - Head Exam Head Exam: NORMAL INSPECTION - Eye Exam Eye Exam: Normal appearance. absent: Conjunctival injection, Scleral icterus - ENT Exam ENT Exam: Mucous Membranes Moist - Neck Exam Neck Exam: Normal Inspection. absent: Tenderness - Respiratory Exam Respiratory Exam: Clear to Ausculation Bilateral, NORMAL BREATHING PATTERN. absent: Rales, Rhonchi, Wheezes - Cardiovascular Exam Cardiovascular Exam: REGULAR RHYTHM, +S1, +S2 - GI/Abdominal Exam GI & Abdominal Exam: Guarding (RUQ palpation), Soft, Tenderness (RUQ), Normal Bowel Sounds. absent: Firm, Rigid - Extremities Exam Extremities Exam: Normal Capillary Refill, Normal Inspection. absent: Pedal Edema, Tenderness - Back Exam Back Exam: NORMAL INSPECTION. absent: rash noted, tenderness - Neurological Exam Neurological Exam: Alert, Awake, Oriented x3 - Psychiatric Exam Psychiatric exam: Normal Affect, Normal Mood - Skin Skin Exam: Dry, Intact, Normal Color, Warm Assessment and Plan - Assessment and Plan (Free Text) Assessment: 66 year old female with PMHx of arthritis and chronic low back pain who presented to the ED for chest pain later found to have symptomatic cholelithiasis and cholecystitis Plan: Cholelithiasis and cholecystitis -Abdominal U/S: cholelithiasis and possible polyp with GB wall thickening/ edema. Small amount of free fluid adjacent to the gallbladder. Small amount of free fluid adjacent to the gallbladder. Rule out mild early cholecystitis. Small cyst left lower lobe liver. Small cyst midpole left kdiney the kidneys are also slightly echogenic. Rule out underlying medical renal disease -HIDA scan: abnl HIDA. Nonvisualization of the GB. Cystic duct is occluded. -CT Abd/pelvis with IV contrast: gallstone; scattered colonic diverticula, no evidence of diverticulitis; hyperdense appearance of right ovary. This may be related to calcification or reflect enhancement. Given the -Amylase: 42 -Lipase: 18 -FOBT : negative -Tylenol 650mg po q6h prn gfever -Simethicone 80mg po tid -Protonix 40mg IVP BID -Zofran 4mg IVP Q6H PRN -D5NS @ 100cc/hr -Flagyl 500mg @ 200cc IV Q8 -Zosyn 3.375gm @ 100cc IVPB Q6 -For OR this AM -GI Dr. Cronin consulted -Surgery Dr. Kearns consulted Chest pain -Resolved -Hemodynamically stable -Chest Xray- no active disease -EKG- sinus arrhythmia @73bpm, no ST/T wave changes -MAUREEN negative x3 -EKG NSR with sinus arryhthmia -CTA Chest dissection protocol : centriacinar type emphysema in mid and upper lung abbott b/l R>L. Bullae noted at each lung base; No evidence of aortic - aneurysm. -ASA 81mg PO daily -Crestor 10mg PO HS -Morphine 4mg IVP Q4 pain prn -Lipid panel WNL -TSH 0.45 -HgA1C 5.6 Headaches -likely migraine headaches -CT head: nonspecific white matter changes -MRI brain: no acute infarct. Chronic white matter ischemia. Small rounded focus within left parasagittal posterior superior parietal calvarium that could represent dermoid/epidermoid. -Tramadol 50mg po tid PRN headache -Neuro consult: Dr. Jorge Holm Glaucoma -Xalatan opth OU HS Prophylactic measures -SCDs -Protonix 40mg IVP BID -Heparin 5000U SC Q12 -Zofran 4mg IVP Q6H prn -Morphine 2mg IVP Q4 prn pain -D5NS @ 100cc/hr Plan discussed with Dr. Jc Ramos PGY1 <Torey Greene - Last Filed: 05/17/17 11:39> Objective - Vital Signs/Intake and Output Vital Signs (last 24 hours): Temp Pulse Resp BP Pulse Ox 98.6 F 102 H 20 146/84 95 04/13/17 15:35 04/13/17 15:35 04/13/17 15:35 04/13/17 15:35 04/13/17 15:35 - Labs Labs: 04/13/17 07:22 04/13/17 07:22 PT 11.0 SECONDS (9.7-12.2) 04/10/17 08:09 INR 1.0 04/10/17 08:09 APTT 29 SECONDS (21-34) 04/10/17 08:09 Attending/Attestation - Attestation I have personally seen and examined this patient.: Yes I have fully participated in the care of the patient.: Yes I have reviewed all pertinent clinical information, including history, physical exam and plan: Yes Notes (Text): Patient seen and examined with the resident. Agree with the resident's evaluation, assessment and plan. 66 year old female with PMHx of arthritis and chronic low back pain who presented to the ED for chest pain later found to have symptomatic cholelithiasis and cholecystitis Plan: Cholelithiasis and cholecystitis Management per surgery Dr. Kearns consulted Chest pain -Resolved Headaches likely migraine headaches mangement per Neuro consult: Dr. Jorge Holm
[2017-04-10 08:41] LABS: BASO % 0.1 % (0.0-2.0); EOS # 0.1 K/uL (0.0-0.7); EOS % 1.2 % (0.0-4.0); HEMATOCRIT 32.2 % (34.0-47.0); LYMPH # 0.7 K/uL (1.0-4.3); LYMPH % 6.7 % (20.0-40.0); MEAN CELL VOLUME 83.7 fL (81.0-99.0); MEAN CORPUSCULAR HEMOGLOBIN 28.2 pg (27.0-31.0); MEAN CORPUSCULAR HGB CONC 33.7 g/dL (33.0-37.0); MEAN PLATELET VOLUME 7.6 fL (7.2-11.7); MONO # 1.1 K/uL (0.0-0.8); MONO % 10.7 % (0.0-10.0); PLATELET COUNT 199 K/uL (130-400); RED CELL DISTRIBUTION WIDTH 14.6 % (11.5-14.5); WHITE BLOOD COUNT 10.3 K/uL (4.8-10.8)
[2017-04-10] MEDS: Dextrose 5%/0.9% NS 1,000 ML IV SCH ×4 (08:50→23:30)
[2017-04-10 09:10] LABS: CHLORIDE 100 mmol/L (98-107)
[2017-04-10 09:11] LABS: POTASSIUM 3.5 mmol/L (3.6-5.2); SODIUM 135 mmol/L (132-148)
[2017-04-10 09:13] LABS: CARBON DIOXIDE 28 mmol/L (22-30); GFR AFRICAN-AMERICAN > 60
[2017-04-10 09:14] LABS: ALB/GLOB RATIO 0.8 (1.0-2.1); ALKALINE PHOSPHATASE 94 U/L (38-126); ALT/SGPT 35 U/L (9-52); AST/SGOT 18 U/L (14-36); BILIRUBIN,TOTAL 0.8 mg/dL (0.2-1.3); BLOOD UREA NITROGEN 7 mg/dL (7-17); CALCIUM 8.3 mg/dl (8.6-10.4); GLUCOSE,RANDOM 108 mg/dL (65-105); TOTAL PROTEIN 5.7 g/dL (6.3-8.3)
[2017-04-10 09:21] LABS: EOSINOPHIL 2 % (0-4); NEUTROPHIL 85 % (50-75); TOTAL CELLS COUNTED 100
[2017-04-10 10:15] LABS: EOSINOPHIL 3 % (0-4); NEUTROPHIL 80 % (50-75); TOTAL CELLS COUNTED 100
[2017-04-10] MEDS: Saccharomyces Boulardi 250 mg Cap PO SCH ×5 (10:53→18:00)
[2017-04-10] MEDS: Simethicone 80 mg Chewtab PO SCH ×5 (10:53→18:00)
[2017-04-10] MEDS ORDERED: Lidocaine 1% Inj (20ml) ONE (13:26)
[2017-04-10] MEDS ORDERED: Bupivacaine/Epi 0.25%-1:200,000 10 ml PF inj IJ ONE (13:26)
[2017-04-10] MEDS ORDERED: ceFAZolin IV 2 gm in Dextrose 0 GM/0 ML BAG IVPB ONE (13:26)
[2017-04-10] MEDS ORDERED: Propofol 10 mg/ml Inj (20 ML) ONE (16:27)
[2017-04-10] MEDS ORDERED: Midazolam 2 MG/2 ML VIAL ONE (16:27)
[2017-04-10] MEDS ORDERED: Lactated Ringer's 1,000 ML IV ONE ×3 (16:35→18:23)
[2017-04-10] MEDS ORDERED: Neostigmine Methylsulfate 3mg/3ml Syringe IV ONE ×2 (18:13→18:51)
[2017-04-10] MEDS: HYDROmorphone 0.5 mg/0.5 ml ISec IVP PRN ×2 (19:31→22:15)
--- NOTE | 2017-04-10 19:33 | PCM.SURG1 ---
Surgeon's Initial Post Op Note - Surgeon's Notes Surgeon: Dr. Kearns Abnormal Psychology Teacher: Dr. Lemus PGY-1 Type of Anesthesia: General Endo Pre-Operative Diagnosis: Acute cholecystitis Operative Findings: See operative note Post-Operative Diagnosis: Acute Cholecystitis with intra-abdominal abscess Operation Performed: Laparoscopic Cholecystectomy with abscess drainage and washout Specimen/Specimens Removed: Gall bladder Estimated Blood Loss: EBL {In ML}: 20 Blood Products Given: N/A Drains Used: Robinson Date of Surgery/Procedure: 04/10/17 Time of Surgery/Procedure: 19:33
[2017-04-10] MEDS: Latanoprost 2.5 ml Opht Soln OU SCH (22:14)
[2017-04-11] MEDS: Piperacill/Tazo 3.375gm in Dex 3.375 GM/50 ML BAG IVPB SCH ×7 (00:36→20:19)
[2017-04-11] MEDS: HYDROmorphone 0.5 mg/0.5 ml ISec IVP PRN ×6 (02:12→23:00)
[2017-04-11] MEDS: Albuterol-Ipratrop 3 mg / 0.5 (3 ml) UD INH SCH ×4 (02:28→19:44)
[2017-04-11] MEDS: metroNIDAZOLE IV 500 mg/100 ml 500 MG/100 ML BAG IV SCH ×3 (05:47→21:49)
[2017-04-11] MEDS: Dextrose 5%/0.9% NS 1,000 ML IV SCH ×3 (05:49→20:17)
--- NOTE | 2017-04-11 08:07 | CP.PCM.PN ---
Subjective - Date & Time of Evaluation Date of Evaluation: 04/11/17 Time of Evaluation: 08:04 - Subjective Subjective: General Surgery Progress Note for Dr. Castillo This 46F was seen and examined this Am at bedside. No acute events reported overnight. She has not passed gas or moved her bowels since the proceedure however she is urinating. She denies any fevers chills chest pain nausea vomiting or diarrhea. Dressings clean dry and intact Objective - Vital Signs/Intake and Output Vital Signs (last 24 hours): Temp Pulse Resp BP Pulse Ox 98.5 F 89 20 126/74 97 04/11/17 00:00 04/11/17 00:00 04/11/17 00:00 04/11/17 00:00 04/11/17 00:00 Intake and Output: 04/11/17 04/11/17 06:59 18:59 Intake Total 1240 Output Total 350 Balance 890 - Medications Medications: Current Medications Acetaminophen (Tylenol 325mg Tab) 650 mg PO Q6H PRN PRN Reason: FEVER>100.4 Albuterol/Ipratropium (Duoneb 3 Mg/0.5 Mg (3 Ml) Ud) 3 ml INH RQ6 [facility] Last Admin: 04/11/17 02:28 Dose: Not Given Hydromorphone HCl (Dilaudid) 0.5 mg IVP Q10M PRN PRN Reason: Pain, moderate (4-7) Last Admin: 04/11/17 06:27 Dose: 0.5 mg Hydromorphone HCl (Dilaudid) 0.5 mg IVP Q4H PRN PRN Reason: Pain, moderate (4-7) Last Admin: 04/10/17 22:15 Dose: 0.5 mg Dextrose/Sodium Chloride (Dextrose 5%/0.9% Ns 1000 Ml) 1,000 mls @ 100 mls/hr IV .Q10H KRISTIE Last Admin: 04/11/17 05:49 Dose: 100 mls/hr Piperacillin Sod/Tazobactam Sod (Zosyn 3.375 Gm Iv Premix) 3.375 gm in 50 mls @ 100 mls/hr IVPB Q6H K[facility]STIE Last Admin: 04/11/17 06:51 Dose: 100 mls/hr Metronidazole (Flagyl) 500 mg in 100 mls @ 200 mls/hr IV Q8 [facility] Last Admin: 04/11/17 05:47 Dose: 200 mls/hr Latanoprost (Xalatan Opht) 0 ml OU HS [facility] Last Admin: 04/10/17 22:14 Dose: 2.5 ml Morphine Sulfate (Morphine) 4 mg IVP Q4 PRN PRN Reason: Pain, moderate (4-7) Last Admin: 04/10/17 07:01 Dose: 4 mg Ondansetron HCl (Zofran Inj) 4 mg IVP Q6H PRN PRN Reason: Nausea/Vomiting Last Admin: 04/10/17 07:06 Dose: 4 mg Pantoprazole Sodium (Protonix Inj) 40 mg IVP BID [facility] Last Admin: 04/10/17 18:00 Dose: Not Given Rosuvastatin Calcium (Crestor) 10 mg PO HS [facility] Last Admin: 04/10/17 22:14 Dose: 10 mg Saccharomyces Boulardii (Florastor) 250 mg PO TID [facility] Last Admin: 04/10/17 18:00 Dose: Not Given Simethicone (Mylicon Chew Tab) 80 mg PO TID [facility] Last Admin: 04/10/17 18:00 Dose: Not Given Tramadol HCl (Ultram) 50 mg PO TID PRN PRN Reason: Headache Last Admin: 04/10/17 05:15 Dose: 50 mg - Labs Labs: 04/10/17 08:09 04/10/17 08:28 PT 11.0 SECONDS (9.7-12.2) 04/10/17 08:09 INR 1.0 04/10/17 08:09 APTT 29 SECONDS (21-34) 04/10/17 08:09 - Constitutional Appears: Non-toxic, No Acute Distress - Head Exam Head Exam: ATRAUMATIC, NORMOCEPHALIC - Eye Exam Eye Exam: EOMI - ENT Exam ENT Exam: Mucous Membranes Moist - Respiratory Exam Respiratory Exam: NORMAL BREATHING PATTERN - Cardiovascular Exam Cardiovascular Exam: REGULAR RHYTHM - GI/Abdominal Exam GI & Abdominal Exam: Soft. absent: Distended, Firm, Guarding, Rigid, Tenderness - Extremities Exam Extremities Exam: Normal Inspection - Neurological Exam Neurological Exam: Alert, Awake - Psychiatric Exam Psychiatric exam: Normal Affect, Normal Mood - Skin Skin Exam: Normal Color, Warm Assessment and Plan - Assessment and Plan (Free Text) Assessment: This is a 66F POD#1 status post laparoscopic cholecystectomy and doing well Continue ABX Regular diet Pain control Monitor bowel function Followup AM labs Will discuss with Dr. Jonathan Lemus PGY-1
[2017-04-11] MEDS ORDERED: Potassium Chloride 20 mEq ER Tab PO ONE ×2 (08:33→11:00)
[2017-04-11] MEDS: Saccharomyces Boulardi 250 mg Cap PO SCH ×3 (10:37→17:50)
[2017-04-11] MEDS: Simethicone 80 mg Chewtab PO SCH ×3 (10:37→17:49)
--- NOTE | 2017-04-11 17:09 | CP.PCM.PN ---
<Berry Olivo - Last Filed: 04/11/17 17:03> Subjective - Date & Time of Evaluation Date of Evaluation: 04/11/17 Time of Evaluation: 10:32 - Subjective Subjective: Pt seen and examined. Pt reports that she has pain after ludwig surgery. Pt reports that she has not had a bowel movement yet. Pt denies fever, chills, chest pain, shortness of breath, nausea, and vomiting. Objective - Vital Signs/Intake and Output Vital Signs (last 24 hours): Temp Pulse Resp BP Pulse Ox 98.4 F 97 H 20 145/81 94 L 04/11/17 08:00 04/11/17 08:00 04/11/17 08:00 04/11/17 08:00 04/11/17 08:00 Intake and Output: 04/11/17 04/11/17 06:59 18:59 Intake Total 1240 1250 Output Total 350 20 Balance 890 1230 - Medications Medications: Current Medications Acetaminophen (Tylenol 325mg Tab) 650 mg PO Q6H PRN PRN Reason: FEVER>100.4 Albuterol/Ipratropium (Duoneb 3 Mg/0.5 Mg (3 Ml) Ud) 3 ml INH RQ6 [facility] Last Admin: 04/11/17 13:40 Dose: 3 ml Hydromorphone HCl (Dilaudid) 0.5 mg IVP Q10M PRN PRN Reason: Pain, moderate (4-7) Last Admin: 04/11/17 06:27 Dose: 0.5 mg Hydromorphone HCl (Dilaudid) 0.5 mg IVP Q4H PRN PRN Reason: Pain, moderate (4-7) Last Admin: 04/11/17 15:04 Dose: 0.5 mg Dextrose/Sodium Chloride (Dextrose 5%/0.9% Ns 1000 Ml) 1,000 mls @ 100 mls/hr IV .Q10H [facility] Last Admin: 04/11/17 05:49 Dose: 100 mls/hr Piperacillin Sod/Tazobactam Sod (Zosyn 3.375 Gm Iv Premix) 3.375 gm in 50 mls @ 100 mls/hr IVPB Q6H [facility] Last Admin: 04/11/17 13:51 Dose: 100 mls/hr Metronidazole (Flagyl) 500 mg in 100 mls @ 200 mls/hr IV Q8 [facility] Last Admin: 04/11/17 15:37 Dose: 200 mls/hr Latanoprost (Xalatan Opht) 0 ml OU HS [facility] Last Admin: 04/10/17 22:14 Dose: 2.5 ml Morphine Sulfate (Morphine) 4 mg IVP Q4 PRN PRN Reason: Pain, moderate (4-7) Last Admin: 04/10/17 07:01 Dose: 4 mg Ondansetron HCl (Zofran Inj) 4 mg IVP Q6H PRN PRN Reason: Nausea/Vomiting Last Admin: 04/10/17 07:06 Dose: 4 mg Pantoprazole Sodium (Protonix Inj) 40 mg IVP BID [facility] Last Admin: 04/11/17 10:36 Dose: 40 mg Rosuvastatin Calcium (Crestor) 10 mg PO HS [facility] Last Admin: 04/10/17 22:14 Dose: 10 mg Saccharomyces Boulardii (Florastor) 250 mg PO TID [facility] Last Admin: 04/11/17 15:37 Dose: 250 mg Simethicone (Mylicon Chew Tab) 80 mg PO TID [facility] Last Admin: 04/11/17 13:52 Dose: 80 mg Tramadol HCl (Ultram) 50 mg PO TID PRN PRN Reason: Headache Last Admin: 04/10/17 05:15 Dose: 50 mg - Labs Labs: 04/10/17 08:09 04/10/17 08:28 PT 11.0 SECONDS (9.7-12.2) 04/10/17 08:09 INR 1.0 04/10/17 08:09 APTT 29 SECONDS (21-34) 04/10/17 08:09 - Constitutional Appears: No Acute Distress - Head Exam Head Exam: ATRAUMATIC, NORMOCEPHALIC - Eye Exam Eye Exam: EOMI, PERRL - ENT Exam ENT Exam: Mucous Membranes Moist. absent: Mucous Membranes Dry - Respiratory Exam Respiratory Exam: Clear to Ausculation Bilateral. absent: Rales, Rhonchi, Wheezes - Cardiovascular Exam Cardiovascular Exam: +S1, +S2. absent: Gallop, Rubs - GI/Abdominal Exam GI & Abdominal Exam: Soft, Tenderness. absent: Distended, Guarding - Extremities Exam Extremities Exam: Full ROM. absent: Pedal Edema - Neurological Exam Neurological Exam: Alert, Awake, Oriented x3 - Psychiatric Exam Psychiatric exam: Normal Affect, Normal Mood - Skin Skin Exam: Normal Color, Warm Assessment and Plan - Assessment and Plan (Free Text) Assessment: Cholelithiasis and cholecystitis Abdominal U/S: cholelithiasis and possible polyp with GB wall thickening/edema. Small amount of free fluid adjacent to the gallbladder. Small amount of free fluid adjacent to the gallbladder. Rule out mild early cholecystitis. Small cyst left lower lobe liver. Small cyst midpole left kdiney the kidneys are also slightly echogenic. Rule out underlying medical renal disease HIDA scan: abnl HIDA. Nonvisualization of the GB. Cystic duct is occluded. CT Abd/pelvis with IV contrast: gallstone; scattered colonic diverticula, no evidence of diverticulitis; hyperdense appearance of right ovary. This may be related to calcification or reflect enhancement. Given the FOBT : negative Tylenol 650mg po q6h prn fever Simethicone 80mg po tid Protonix 40mg IVP BID Zofran 4mg IVP Q6H PRN D5NS @ 100cc/hr Flagyl 500mg @ 200cc IV Q8 Zosyn 3.375gm @ 100cc IVPB Q6 GI Dr[address] Cronin consulted Surgery Dr. 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 Bullae noted at each lung base; No evidence of aortic - aneurysm. ASA 81mg PO daily Crestor 10mg PO HS Morphine 4mg IVP Q4 pain prn Lipid panel WNL TSH 0.[address] head: nonspecific white matter changes MRI brain: no acute infarct. Chronic white matter ischemia. Small rounded focus within left parasagittal posterior superior parietal calvarium that could represent dermoid/epidermoid. Tramadol 50mg po tid PRN headache Neuro consult: Dr. Jorge Holm Glaucoma Xalatan opth OU HS Prophylactic measures SCDs Protonix 40mg IVP BID Heparin 5000U SC Q12 Zofran 4mg IVP Q6H prn Morphine 2mg IVP Q4 prn pain D5NS @ 100cc/hr <Torey Greene - Last Filed: 05/17/17 11:41> Objective - Vital Signs/Intake and Output Vital Signs (last 24 hours): Temp Pulse Resp BP Pulse Ox 98.6 F 102 H 20 146/84 95 04/13/17 15:35 04/13/17 15:35 04/13/17 15:35 04/13/17 15:35 04/13/17 15:35 - Labs Labs: 04/13/17 07:22 04/13/17 07:22 PT 11.0 SECONDS (9.7-12.2) 04/10/17 08:09 INR 1.0 04/10/17 08:09 APTT 29 SECONDS (21-34) 04/10/17 08:09 Attending/Attestation - Attestation I have personally seen and examined this patient.: Yes I have fully participated in the care of the patient.: Yes I have reviewed all pertinent clinical information, including history, physical exam and plan: Yes Notes (Text): Patient seen and examined with the resident. Agree with the resident's evaluation, assessment and plan. 66 year old female with PMHx of arthritis and chronic low back pain who presented to the ED for chest pain later found to have symptomatic cholelithiasis and cholecystitis Plan: Cholelithiasis and cholecystitis Management per surgery Dr. Kearns consulted Chest pain -Resolved Headaches likely migraine headaches mangement per Neuro consult: Dr. Jorge Holm
[2017-04-11] MEDS: Latanoprost 2.5 ml Opht Soln OU SCH (21:49)
[2017-04-12] MEDS: Piperacill/Tazo 3.375gm in Dex 3.375 GM/50 ML BAG IVPB SCH ×4 (00:07→19:02)
[2017-04-12] MEDS: Albuterol-Ipratrop 3 mg / 0.5 (3 ml) UD INH SCH ×4 (01:18→20:53)
[2017-04-12] MEDS: HYDROmorphone 0.5 mg/0.5 ml ISec IVP PRN (03:11)
[2017-04-12] MEDS: HYDROmorphone 1 mg/ml ISec IVP PRN ×2 (03:12→07:30)
[2017-04-12] MEDS: metroNIDAZOLE IV 500 mg/100 ml 500 MG/100 ML BAG IV SCH ×3 (05:15→21:23)
[2017-04-12] MEDS: Dextrose 5%/0.9% NS 1,000 ML IV SCH (05:19)
[2017-04-12 06:45] LABS: BASO % 0.1 % (0.0-2.0); EOS # 0.1 K/uL (0.0-0.7); EOS % 1.3 % (0.0-4.0); HEMATOCRIT 32.5 % (34.0-47.0); LYMPH % 11.2 % (20.0-40.0); MEAN CELL VOLUME 83.8 fL (81.0-99.0); MEAN CORPUSCULAR HEMOGLOBIN 27.7 pg (27.0-31.0); MEAN PLATELET VOLUME 7.4 fL (7.2-11.7); MONO % 11.1 % (0.0-10.0); NRBC % 0.1 % (0.0-2.0); RED CELL DISTRIBUTION WIDTH 14.6 % (11.5-14.5)
[2017-04-12 07:06] LABS: CHLORIDE 98 mmol/L (98-107); SODIUM 135 mmol/L (132-148)
[2017-04-12 07:07] LABS: POTASSIUM 3.6 mmol/L (3.6-5.2)
[2017-04-12 07:08] LABS: GFR AFRICAN-AMERICAN > 60
[2017-04-12 07:09] LABS: ALB/GLOB RATIO 0.9 (1.0-2.1); ALKALINE PHOSPHATASE 119 U/L (38-126); ALT/SGPT 48 U/L (9-52); AST/SGOT 38 U/L (14-36); BILIRUBIN,TOTAL 0.6 mg/dL (0.2-1.3); BLOOD UREA NITROGEN 8 mg/dL (7-17); CARBON DIOXIDE 28 mmol/L (22-30); GLUCOSE,RANDOM 119 mg/dL (65-105); PHOSPHOROUS 3.2 mg/dL (2.5-4.5); TOTAL PROTEIN 5.7 g/dL (6.3-8.3)
[2017-04-12 07:10] LABS: CALCIUM 7.8 mg/dl (8.6-10.4)
[2017-04-12] MEDS: Saccharomyces Boulardi 250 mg Cap PO SCH ×3 (09:47→17:18)
--- NOTE | 2017-04-12 12:06 | CP.PCM.PN ---
Subjective - Date & Time of Evaluation Date of Evaluation: 04/12/17 Time of Evaluation: 08:00 - Subjective Subjective: Surgery: Dr. Kearns Pt seen and examined. No acute overnight events. Sitting comfortably in bedside chair. States she feels better this morning. Pain is well controlled and admits to tolerating diet. Admits to flatus. Denies N/V, F/C. Objective - Vital Signs/Intake and Output Vital Signs (last 24 hours): Temp Pulse Resp BP Pulse Ox 98.3 F 102 H 19 134/82 95 04/11/17 23:16 04/11/17 23:16 04/11/17 23:16 04/11/17 23:16 04/11/17 23:16 - Medications Medications: Current Medications Acetaminophen (Tylenol 325mg Tab) 650 mg PO Q6H PRN PRN Reason: FEVER>100.4 Albuterol/Ipratropium (Duoneb 3 Mg/0.5 Mg (3 Ml) Ud) 3 ml INH RQ6 [facility] Last Admin: 04/12/17 07:47 Dose: 3 ml Hydromorphone HCl (Dilaudid) 0.5 mg IVP Q10M PRN PRN Reason: Pain, moderate (4-7) Last Admin: 04/11/17 17:44 Dose: 0.5 mg Piperacillin Sod/Tazobactam Sod (Zosyn 3.375 Gm Iv Premix) 3.375 gm in 50 mls @ 100 mls/hr IVPB Q6H [facility] Last Admin: 04/12/17 07:37 Dose: 100 mls/hr Metronidazole (Flagyl) 500 mg in 100 mls @ 200 mls/hr IV Q8 [facility] Last Admin: 04/12/17 05:15 Dose: 200 mls/hr Latanoprost (Xalatan Opht) 0 ml OU HS [facility] Last Admin: 04/11/17 21:49 Dose: 2.5 ml Ondansetron HCl (Zofran Inj) 4 mg IVP Q6H PRN PRN Reason: Nausea/Vomiting Last Admin: 04/11/17 20:16 Dose: 4 mg Pantoprazole Sodium (Protonix Inj) 40 mg IVP BID [facility] Last Admin: 04/11/17 17:51 Dose: 40 mg Rosuvastatin Calcium (Crestor) 10 mg PO HS [facility] Last Admin: 04/11/17 21:49 Dose: 10 mg Saccharomyces Boulardii (Florastor) 250 mg PO TID [facility] Last Admin: 04/12/17 09:47 Dose: 250 mg Simethicone (Mylicon Chew Tab) 80 mg PO TID [facility] Last Admin: 04/11/17 17:49 Dose: 80 mg Tramadol HCl (Ultram) 50 mg PO TID PRN PRN Reason: Headache Last Admin: 04/10/17 05:15 Dose: 50 mg - Labs Labs: 04/12/17 06:38 04/12/17 06:38 PT 11.0 SECONDS (9.7-12.2) 04/10/17 08:09 INR 1.0 04/10/17 08:09 APTT 29 SECONDS (21-34) 04/10/17 08:09 - Constitutional Appears: Well, No Acute Distress - Head Exam Head Exam: ATRAUMATIC, NORMOCEPHALIC - Eye Exam Eye Exam: Normal appearance - ENT Exam ENT Exam: Mucous Membranes Moist - Respiratory Exam Respiratory Exam: NORMAL BREATHING PATTERN - Cardiovascular Exam Cardiovascular Exam: RRR - GI/Abdominal Exam GI & Abdominal Exam: Soft, Tenderness (around incisions ). absent: Distended, Guarding, Rebound - Extremities Exam Extremities Exam: absent: Tenderness - Neurological Exam Neurological Exam: Alert, Awake, Oriented x3 - Skin Skin Exam: Dry, Intact, Warm Assessment and Plan - Assessment and Plan (Free Text) Assessment: 66F s/p lap gustavo; POD#2 Plan: - Pt clear for DC from surgical standpoint - Can be DC home with drain; will remove drain outpt - f/u with Dr. Kearns in 1 week - d/w Dr. Castillo (covering for Dr. Kearns) Naina Martinez, PGY-2 Surgery
[2017-04-12] MEDS: Simethicone 80 mg Chewtab PO SCH ×3 (12:17→17:19)
[2017-04-12 16:01] VITALS: RESP 20
[2017-04-12] MEDS: Latanoprost 2.5 ml Opht Soln OU SCH (21:22)
--- NOTE | 2017-04-12 23:01 | OP ---
PROCEDURE DATE: 04/10/2017 PREOPERATIVE DIAGNOSIS: Acute cholecystitis with cholelithiasis and possible postinfectious adhesion. POSTOPERATIVE DIAGNOSES: 1. Ljged-eg-hrycsrw phlegmonous cholecystitis. 2. Pericholecystic abscess and fluid collection. 3. Extensive postinfectious, post-inflammatory adhesions and the phlegmon. PROCEDURE DONE: 1. Laparoscopic extensive lysis of adhesions. 2. Laparoscopic drainage of right upper quadrant abscesses. 3. Laparoscopic cholecystectomy. SURGEON: Harry Kearns MD NURSE FIRST AID: Joseph Lemus, PGY-1 resident. ANESTHESIA: General endotracheal tube anesthesia. ESTIMATED BLOOD LOSS: Around 50 mL. DRAINS: 19-Persian Robinson drain was placed. COMPLICATIONS: None. INTRAOPERATIVE FINDINGS: The patient had changes of [id number] cholecystitis with pericholecystic fluid collection, as well as abscesses, and extensive postinfectious and post-inflammatory phlegmonous changes. INTRAOPERATIVE STEPS: This 66-year-old female was diagnosed with acute cholecystitis and cholelithiasis. The patient had multiple medical comorbidities and after medical clearance, the patient was consented for the laparoscopic cholecystectomy, possible open. Brought to the OR, placed supine on the operating table. After induction of the anesthesia, abdomen was prepped and draped in the usual sterile fashion. Supraumbilical transverse 1.5 cm incision was made. After incising skin and subcutaneous tissue, the fascia was incised in the line of incision. Abril port was placed. Pneumo was created. After creation of pneumoperitoneum, the 12 mm port was placed in the midline below the xiphisternum and another two 5 mm ports were placed in midclavicular area , and another 5 mm port was placed in the left upper quadrant for fan retractor, and after that, the patient was placed in [id number], head-up position. There was extensive phlegmonous changes and abscess in the right upper quadrant and first extensive lysis of adhesion was done to identify the gallbladder. Gallbladder was aspirated, and the gallbladder was retracted cranially. Extensive dissection was continued down to identify the infundibulum as well as the Calot triangle and with the fan retractor, the phlegmon was retracted inferiorly. Phlegmon was retracted inferiorly and the Calot triangle dissection was done. Cystic duct and cystic artery were identified, and the cystic duct and cystic artery were clipped at 3 places and cut in between 2 clips near the gallbladder, and gallbladder was dissected free from the gallbladder fossa. There was a proper hemostasis in each and every part of the procedure. After proper drainage of abscesses and after the proper hemostasis, the 19-Persian Robinson drain was placed and gallbladder was taken in EndoCatch bag, taken out through the umbilical port site, and sent to the table for the pathology. The umbilical port was closed in 2 layers, the fascia with 0 Vicryl interrupted suture, skin with a 4-0 Monocryl. Dry sterile dressing was applied. The patient tolerated the procedure well. Count of instruments and gauze was correct. There was no apparent complication. Harry Kearns MD cc: [id number] TT: 04/12/2017 23:00:44 jose g DORMAN
--- NOTE | 2017-04-12 23:54 | CP.PCM.PN ---
<GoodchiMarkn - Last Filed: 04/13/17 00:02> Subjective - Date & Time of Evaluation Date of Evaluation: 04/12/17 Time of Evaluation: 10:43 - Subjective Subjective: Pt seen and examined. Pt reports that she has some abdominal pain and had an episode of vomiting early in the am. Pt reports that she had a small bowel movement in the am and is passing gas. Pt reports that she does not have much of an appetite. Pt encouraged to get out of bed and walk, as well as use incentive spirometer. Pt denies fever, chills, chest pain, shortness of breath. Objective - Vital Signs/Intake and Output Vital Signs (last 24 hours): Temp Pulse Resp BP Pulse Ox 98.5 F 105 H 20 146/82 96 04/12/17 16:00 04/12/17 16:00 04/12/17 16:00 04/12/17 16:00 04/12/17 16:00 Intake and Output: 04/12/17 04/13/17 18:59 06:59 Intake Total 400 100 Output Total 10 10 Balance 390 90 - Medications Medications: Current Medications Acetaminophen (Tylenol 325mg Tab) 650 mg PO Q6H PRN PRN Reason: FEVER>100.4 Albuterol/Ipratropium (Duoneb 3 Mg/0.5 Mg (3 Ml) Ud) 3 ml INH RQ6 [facility]ST[facility] Last Admin: 04/12/17 20:53 Dose: Not Given Hydromorphone HCl (Dilaudid) 0.5 mg IVP Q10M PRN PRN Reason: Pain, moderate (4-7) Last Admin: 04/11/17 17:44 Dose: 0.5 mg Piperacillin Sod/Tazobactam Sod (Zosyn 3.375 Gm Iv Premix) 3.375 gm in 50 mls @ 100 mls/hr IVPB Q6H [facility] Last Admin: 04/12/17 19:02 Dose: 100 mls/hr Metronidazole (Flagyl) 500 mg in 100 mls @ 200 mls/hr IV Q8 [facility] Last Admin: 04/12/17 21:23 Dose: 200 mls/hr Latanoprost (Xalatan Opht) 0 ml OU HS [facility] Last Admin: 04/12/17 21:22 Dose: 2.5 ml Ondansetron HCl (Zofran Inj) 4 mg IVP Q6H PRN PRN Reason: Nausea/Vomiting Last Admin: 04/12/17 17:22 Dose: 4 mg Pantoprazole Sodium (Protonix Inj) 40 mg IVP BID [facility] Last Admin: 04/12/17 17:21 Dose: 40 mg Rosuvastatin Calcium (Crestor) 10 mg PO HS [facility] Last Admin: 04/12/17 21:22 Dose: 10 mg Saccharomyces Boulardii (Florastor) 250 mg PO TID [facility] Last Admin: 04/12/17 17:18 Dose: 250 mg Simethicone (Mylicon Chew Tab) 80 mg PO TID [facility] Last Admin: 04/12/17 17:19 Dose: 80 mg Tramadol HCl (Ultram) 50 mg PO TID PRN PRN Reason: Headache Last Admin: 04/12/17 20:39 Dose: 50 mg - Labs Labs: 04/12/17 06:38 04/12/17 06:38 PT 11.0 SECONDS (9.7-12.2) 04/10/17 08:09 INR 1.0 04/10/17 08:09 APTT 29 SECONDS (21-34) 04/10/17 08:09 - Constitutional Appears: No Acute Distress - Head Exam Head Exam: ATRAUMATIC, NORMOCEPHALIC - Eye Exam Eye Exam: EOMI, PERRL - ENT Exam ENT Exam: Mucous Membranes Moist. absent: Mucous Membranes Dry - Respiratory Exam Respiratory Exam: Clear to Ausculation Bilateral. absent: Rales, Rhonchi, Wheezes - Cardiovascular Exam Cardiovascular Exam: +S1, +S2. absent: Gallop, Rubs - GI/Abdominal Exam GI & Abdominal Exam: Soft. absent: Tenderness - Extremities Exam Extremities Exam: Full ROM. absent: Pedal Edema - Neurological Exam Neurological Exam: Alert, Awake, Oriented x3 - Psychiatric Exam Psychiatric exam: Normal Affect, Normal Mood - Skin Skin Exam: Normal Color, Warm Assessment and Plan - Assessment and Plan (Free Text) Assessment: Cholelithiasis and cholecystitis Abdominal U/S: cholelithiasis and possible polyp with GB wall thickening/edema. Small amount of free fluid adjacent to the gallbladder. Small amount of free fluid adjacent to the gallbladder. Rule out mild early cholecystitis. Small cyst left lower lobe liver. Small cyst midpole left kdiney the kidneys are also slightly echogenic. Rule out underlying medical renal disease HIDA scan: abnl HIDA. Nonvisualization of the GB. Cystic duct is occluded. CT Abd/pelvis with IV contrast: gallstone; scattered colonic diverticula, no evidence of diverticulitis; hyperdense appearance of right ovary. This may be related to calcification or reflect enhancement. Given the FOBT : negative Tylenol 650mg po q6h prn fever Simethicone 80mg po tid Protonix 40mg IVP BID Zofran 4mg IVP Q6H PRN D5NS @ 100cc/hr Flagyl 500mg @ 200cc IV Q8 Zosyn 3.375gm @ 100cc IVPB Q6 GI Dr[address] Cronin consulted Surgery Dr. 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 Bullae noted at each lung base; No evidence of aortic - aneurysm. ASA 81mg PO daily Crestor 10mg PO HS Morphine 4mg IVP Q4 pain prn Lipid panel WNL TSH 0.[address] head: nonspecific white matter changes MRI brain: no acute infarct. Chronic white matter ischemia. Small rounded focus within left parasagittal posterior superior parietal calvarium that could represent dermoid/epidermoid. Tramadol 50mg po tid PRN headache Neuro consult: Dr. Jorge Holm Glaucoma Xalatan opth OU HS Prophylactic measures SCDs Protonix 40mg IVP BID Heparin 5000U SC Q12 Zofran 4mg IVP Q6H prn Morphine 2mg IVP Q4 prn pain D5NS @ 100cc/hr <Torey Greene - Last Filed: 05/17/17 11:40> Objective - Vital Signs/Intake and Output Vital Signs (last 24 hours): Temp Pulse Resp BP Pulse Ox 98.6 F 102 H 20 146/84 95 04/13/17 15:35 04/13/17 15:35 04/13/17 15:35 04/13/17 15:35 04/13/17 15:35 - Labs Labs: 04/13/17 07:22 04/13/17 07:22 PT 11.0 SECONDS (9.7-12.2) 04/10/17 08:09 INR 1.0 04/10/17 08:09 APTT 29 SECONDS (21-34) 04/10/17 08:09 Attending/Attestation - Attestation I have personally seen and examined this patient.: Yes I have fully participated in the care of the patient.: Yes I have reviewed all pertinent clinical information, including history, physical exam and plan: Yes Notes (Text): Patient seen and examined with the resident. Agree with the resident's evaluation, assessment and plan. 66 year old female with PMHx of arthritis and chronic low back pain who presented to the ED for chest pain later found to have symptomatic cholelithiasis and cholecystitis Plan: Cholelithiasis and cholecystitis Management per surgery Dr. Kearns consulted Chest pain -Resolved Headaches likely migraine headaches mangement per Neuro consult: Dr. Jorge Holm
[2017-04-13] MEDS: Piperacill/Tazo 3.375gm in Dex 3.375 GM/50 ML BAG IVPB SCH ×3 (00:21→12:21)
[2017-04-13] MEDS: Albuterol-Ipratrop 3 mg / 0.5 (3 ml) UD INH SCH ×3 (01:26→14:10)
[2017-04-13] MEDS: HYDROmorphone 0.5 mg/0.5 ml ISec IVP PRN (04:08)
[2017-04-13] MEDS: metroNIDAZOLE IV 500 mg/100 ml 500 MG/100 ML BAG IV SCH ×2 (05:03→13:19)
[2017-04-13 07:44] LABS: BASO % 0.2 % (0.0-2.0); EOS # 0.1 K/uL (0.0-0.7); EOS % 1.9 % (0.0-4.0); LYMPH # 0.6 K/uL (1.0-4.3); LYMPH % 8.8 % (20.0-40.0); MEAN CELL VOLUME 82.9 fL (81.0-99.0); MEAN CORPUSCULAR HEMOGLOBIN 28.1 pg (27.0-31.0); MEAN CORPUSCULAR HGB CONC 33.9 g/dL (33.0-37.0); MEAN PLATELET VOLUME 7.4 fL (7.2-11.7); MONO # 0.8 K/uL (0.0-0.8); MONO % 11.4 % (0.0-10.0); PLATELET COUNT 248 K/uL (130-400); RED CELL DISTRIBUTION WIDTH 14.2 % (11.5-14.5); WHITE BLOOD COUNT 7.2 K/uL (4.8-10.8)
[2017-04-13 07:58] LABS: CHLORIDE 96 mmol/L (98-107)
[2017-04-13 07:59] LABS: POTASSIUM 3.5 mmol/L (3.6-5.2); SODIUM 133 mmol/L (132-148)
[2017-04-13 08:01] LABS: ALB/GLOB RATIO 0.8 (1.0-2.1); ALKALINE PHOSPHATASE 103 U/L (38-126); AST/SGOT 34 U/L (14-36); BILIRUBIN,TOTAL 0.6 mg/dL (0.2-1.3); BLOOD UREA NITROGEN 8 mg/dL (7-17); CARBON DIOXIDE 30 mmol/L (22-30); GFR AFRICAN-AMERICAN > 60; TOTAL PROTEIN 5.6 g/dL (6.3-8.3)
[2017-04-13 08:02] LABS: ALT/SGPT 46 U/L (9-52); CALCIUM 7.9 mg/dl (8.6-10.4); GLUCOSE,RANDOM 104 mg/dL (65-105); PHOSPHOROUS 3.2 mg/dL (2.5-4.5)
[2017-04-13 08:28] LABS: EOSINOPHIL 2 % (0-4); MYELOCYTE 1 % (0-0); NEUTROPHIL 80 % (50-75); TOTAL CELLS COUNTED 100
[2017-04-13] MEDS: Simethicone 80 mg Chewtab PO SCH ×2 (10:46→13:19)
[2017-04-13] MEDS: Saccharomyces Boulardi 250 mg Cap PO SCH ×2 (10:46→13:19)
--- NOTE | 2017-04-13 11:02 | CP.PCM.PN ---
<DerekbandarMunir putnam - Last Filed: 04/13/17 10:59> Subjective - Date & Time of Evaluation Date of Evaluation: 04/13/17 Time of Evaluation: 10:59 - Subjective Subjective: Surgery: Dr. garcia Pt seen and examined. Resting comfortably in bed. No complaints. Pt is looking forward to going home Objective - Vital Signs/Intake and Output Vital Signs (last 24 hours): Temp Pulse Resp BP Pulse Ox 98 F 83 20 138/87 96 04/13/17 00:00 04/13/17 00:00 04/13/17 00:00 04/13/17 00:00 04/13/17 00:00 Intake and Output: 04/13/17 04/13/17 06:59 18:59 Intake Total 100 Output Total 10 Balance 90 - Medications Medications: Current Medications Acetaminophen (Tylenol 325mg Tab) 650 mg PO Q6H PRN PRN Reason: FEVER>100.4 Albuterol/Ipratropium (Duoneb 3 Mg/0.5 Mg (3 Ml) Ud) 3 ml INH RQ6 KRISTIE Last Admin: 04/13/17 08:12 Dose: 3 ml Hydromorphone HCl (Dilaudid) 0.5 mg IVP Q10M PRN PRN Reason: Pain, moderate (4-7) Last Admin: 04/13/17 04:08 Dose: 0.5 mg Piperacillin Sod/Tazobactam Sod (Zosyn 3.375 Gm Iv Premix) 3.375 gm in 50 mls @ 100 mls/hr IVPB Q6H KRISTIE Last Admin: 04/13/17 06:21 Dose: 100 mls/hr Metronidazole (Flagyl) 500 mg in 100 mls @ 200 mls/hr IV Q8 KRISTIE Last Admin: 04/13/17 05:03 Dose: 200 mls/hr Latanoprost (Xalatan Opht) 0 ml OU HS KRISTIE Last Admin: 04/12/17 21:22 Dose: 2.5 ml Ondansetron HCl (Zofran Inj) 4 mg IVP Q6H PRN PRN Reason: Nausea/Vomiting Last Admin: 04/12/17 17:22 Dose: 4 mg Pantoprazole Sodium (Protonix Inj) 40 mg IVP BID [facility] Last Admin: 04/13/17 10:46 Dose: 40 mg Rosuvastatin Calcium (Crestor) 10 mg PO HS [facility] Last Admin: 04/12/17 21:22 Dose: 10 mg Saccharomyces Boulardii (Florastor) 250 mg PO TID [facility] Last Admin: 04/13/17 10:46 Dose: 250 mg Simethicone (Mylicon Chew Tab) 80 mg PO TID [facility] Last Admin: 04/13/17 10:46 Dose: 80 mg Tramadol HCl (Ultram) 50 mg PO TID PRN PRN Reason: Headache Last Admin: 04/12/17 20:39 Dose: 50 mg - Labs Labs: 04/13/17 07:22 04/13/17 07:22 PT 11.0 SECONDS (9.7-12.2) 04/10/17 08:09 INR 1.0 04/10/17 08:09 APTT 29 SECONDS (21-34) 04/10/17 08:09 - Constitutional Appears: Non-toxic, No Acute Distress - Head Exam Head Exam: ATRAUMATIC, NORMOCEPHALIC - Eye Exam Eye Exam: EOMI - ENT Exam ENT Exam: Mucous Membranes Moist - Neck Exam Neck Exam: Full ROM - Respiratory Exam Respiratory Exam: NORMAL BREATHING PATTERN. absent: Accessory Muscle Use, Respiratory Distress - GI/Abdominal Exam GI & Abdominal Exam: Soft. absent: Distended, Firm, Guarding, Rigid, Tenderness , Rebound Additional comments: dressings in place, C/D/I R mid abd laurel in place - Extremities Exam Extremities Exam: absent: Calf Tenderness, Pedal Edema - Neurological Exam Neurological Exam: Alert, Awake, Oriented x3 Assessment and Plan - Assessment and Plan (Free Text) Assessment: 66F w. cholecystitis, s/p lap gustavo, POD#3 -Pt is clear for D/C from surgical standpoint -Pt to go home w. drain in place -To follow up in office in 2 weeks -Take pain Rx as instructed -If questions or concerns arise, return to ED -D/w attending <Harry Garcia - Last Filed: 04/13/17 21:22> Objective - Vital Signs/Intake and Output Vital Signs (last 24 hours): Temp Pulse Resp BP Pulse Ox 98.6 F 102 H 20 146/84 95 04/13/17 15:35 04/13/17 15:35 04/13/17 15:35 04/13/17 15:35 04/13/17 15:35 Intake and Output: 04/13/17 04/14/17 18:59 06:59 Intake Total 720 Output Total 30 Balance 690 - Labs Labs: 04/13/17 07:22 04/13/17 07:22 PT 11.0 SECONDS (9.7-12.2) 04/10/17 08:09 INR 1.0 04/10/17 08:09 APTT 29 SECONDS (21-34) 04/10/17 08:09 Attending/Attestation - Attestation I have personally seen and examined this patient.: Yes I have fully participated in the care of the patient.: Yes I have reviewed all pertinent clinical information, including history, physical exam and plan: Yes Notes (Text): 04/13/17 21:21 Pt was seen and examined at bedside on 04/13/17 Agree with above note and assessment F/U as out pt.
--- NOTE | 2017-04-13 11:28 | CP.PCM.PN ---
Subjective - Date & Time of Evaluation Date of Evaluation: 04/13/17 Time of Evaluation: 07:30 - Subjective Subjective: Patient seen and examined. Status post laparoscopic cholecystectomy Lying comfortably in no acute distress Denies cough, denies fever chills, denies chest pain Objective - Vital Signs/Intake and Output Vital Signs (last 24 hours): Temp Pulse Resp BP Pulse Ox 98 F 83 20 138/87 96 04/13/17 00:00 04/13/17 00:00 04/13/17 00:00 04/13/17 00:00 04/13/17 00:00 Intake and Output: 04/13/17 04/13/17 06:59 18:59 Intake Total 100 Output Total 10 Balance 90 - Medications Medications: Current Medications Acetaminophen (Tylenol 325mg Tab) 650 mg PO Q6H PRN PRN Reason: FEVER>100.4 Albuterol/Ipratropium (Duoneb 3 Mg/0.5 Mg (3 Ml) Ud) 3 ml INH RQ6 [facility] Last Admin: 04/13/17 08:12 Dose: 3 ml Hydromorphone HCl (Dilaudid) 0.5 mg IVP Q10M PRN PRN Reason: Pain, moderate (4-7) Last Admin: 04/13/17 04:08 Dose: 0.5 mg Piperacillin Sod/Tazobactam Sod (Zosyn 3.375 Gm Iv Premix) 3.375 gm in 50 mls @ 100 mls/hr IVPB Q6H [facility] Last Admin: 04/13/17 06:21 Dose: 100 mls/hr Metronidazole (Flagyl) 500 mg in 100 mls @ 200 mls/hr IV Q8 [facility] Last Admin: 04/13/17 05:03 Dose: 200 mls/hr Latanoprost (Xalatan Opht) 0 ml OU HS [facility] Last Admin: 04/12/17 21:22 Dose: 2.5 ml Ondansetron HCl (Zofran Inj) 4 mg IVP Q6H PRN PRN Reason: Nausea/Vomiting Last Admin: 04/12/17 17:22 Dose: 4 mg Pantoprazole Sodium (Protonix Inj) 40 mg IVP BID [facility] Last Admin: 04/13/17 10:46 Dose: 40 mg Rosuvastatin Calcium (Crestor) 10 mg PO HS [facility] Last Admin: 04/12/17 21:22 Dose: 10 mg Saccharomyces Boulardii (Florastor) 250 mg PO TID [facility] Last Admin: 04/13/17 10:46 Dose: 250 mg Simethicone (Mylicon Chew Tab) 80 mg PO TID [facility] Last Admin: 04/13/17 10:46 Dose: 80 mg Tramadol HCl (Ultram) 50 mg PO TID PRN PRN Reason: Headache Last Admin: 04/12/17 20:39 Dose: 50 mg - Labs Labs: 04/13/17 07:22 04/13/17 07:22 PT 11.0 SECONDS (9.7-12.2) 04/10/17 08:09 INR 1.0 04/10/17 08:09 APTT 29 SECONDS (21-34) 04/10/17 08:09 - Head Exam Head Exam: ATRAUMATIC, NORMOCEPHALIC - Eye Exam Eye Exam: Normal appearance - ENT Exam ENT Exam: Mucous Membranes Moist - Neck Exam Neck Exam: Normal Inspection - Respiratory Exam Respiratory Exam: Clear to Ausculation Bilateral - Cardiovascular Exam Cardiovascular Exam: REGULAR RHYTHM - GI/Abdominal Exam GI & Abdominal Exam: Soft Assessment and Plan (1) Emphysema of lung Assessment & Plan: continue nebulizer treatment as needed Pulmonary function test as outpatient Status: Acute
--- NOTE | 2017-04-13 12:11 | CP.PCM.DIS ---
<Elma Ramos - Last Filed: 04/13/17 15:38> Provider - Provider Date of Admission: 04/07/17 13:45 Attending physician: Tony Culver MD Primary care physician: Dr. Grullon Consults: Dr. Kearns surgery Dr. Ines Holm Neurology Dr. Mina Farrell Time Spent in preparation of Discharge (in minutes): 45 Hospital Course - Lab Results Lab Results: Most Recent Lab Values WBC 7.2 K/uL (4.8-10.8) 04/13/17 07:22 RBC 3.74 Mil/uL (3.80-5.20) L 04/13/17 07:22 Hgb 10.5 g/dL (11.0-16.0) L 04/13/17 07: Hct 31.0 % (34.0-47.0) L 04/13/17 07:22 MCV 82.9 fL (81.0-99.0) 04/13/17 07: MCH 28.1 pg (27.0-31.0) 04/13/17 07: MCHC 33.9 g/dL (33.0-37.0) 04/13/17 07: RDW 14.2 % (11.5-14.5) 04/13/17 07:22 Plt Count 248 K/uL (130-400) 04/13/17 07:22 MPV 7.4 fL (7.2-11.7) 04/13/17 07:22 Neut % (Auto) 77.7 % (50.0-75.0) H 04/13/17 07:22 Lymph % (Auto) 8.8 % (20.0-40.0) L 04/13/17 07:22 Arthur % (Auto) 11.4 % (0.0-10.0) H 04/13/17 07: Eos % (Auto) 1.9 % (0.0-4.0) 04/13/17 07:22 Baso % (Auto) 0.2 % (0.0-2.0) 04/13/17 07:22 Neut # 5.6 K/uL (1.8-7.0) 04/13/17 07:22 Lymph # 0.6 K/uL (1.0-4.3) L 04/13/17 07:22 Arthur # 0.8 K/uL (0.0-0.8) 04/13/17 07:22 Eos # 0.1 K/uL (0.0-0.7) 04/13/17 07:22 Baso # 0.0 K/uL (0.0-0.2) 04/13/17 07:22 Neutrophils % (Manual) 80 % (50-75) H 04/13/17 07:22 Band Neutrophils % 7 % (0-2) H 04/13/17 07:22 Lymphocytes % (Manual) 4 % (20-40) L 04/13/17 07:22 Monocytes % (Manual) 6 % (0-10) 04/13/17 07:22 Eosinophils % (Manual) 2 % (0-4) 04/13/17 07:22 Myelocytes % 1 % (0-0) H 04/13/17 07:22 Platelet Estimate Normal (NORMAL) 04/13/17 07:22 RBC Morphology Normal 04/08/17 07:00 Hypochromasia (manual) Slight 04/13/17 07:22 Poikilocytosis (manual Slight 04/10/17 08:09 Anisocytosis (manual) Slight 04/10/17 08:09 Target Cells Slight 04/10/17 08:09 Ovalocytes Slight 04/13/17 07:22 ESR 81 mm/hr (0-20) H 04/08/17 07:00 PT 11.0 SECONDS (9.7-12.2) 04/10/17 08:09 INR 1.0 04/10/17 08:09 APTT 29 SECONDS (21-34) 04/10/17 08:09 Puncture Site Rra 04/08/17 20:20 pCO2 41 mm/Hg (35-45) 04/08/17 20:20 pO2 46 mm/Hg (80-100) L 04/08/17 20:20 HCO3 25.5 mmol/L (21-28) 04/08/17 20:20 ABG pH 7.41 (7.35-7.45) 04/08/17 20:20 ABG Total CO2 27.3 mmol/L (22-28) 04/08/17 20:20 ABG O2 Saturation 85.8 % (95-98) L 04/08/17 20:20 ABG Base Excess 1.2 mmol/L (-2.0-3.0) 04/08/17 20:20 ABG Hemoglobin 12.0 g/dL (11.7-17.4) 04/08/17 20:20 ABG Carboxyhemoglobin 2.1 % (0.5-1.5) H 04/08/17 20:20 POC ABG HHb (Measured) 13.7 % (0.0-5.0) H 04/08/17 20:20 ABG Methemoglobin 1.3 % (0.0-3.0) 04/08/17 20:20 Dylan Test Pos 04/08/17 20:20 A-a O2 Difference 52.0 mm/Hg 04/08/17 20:20 Respiratory Index 1.1 04/08/17 20:20 Hgb O2 Saturation 82.8 % (95.0-98.0) L 04/08/17 20:20 FiO2 21.0 % 04/08/17 20:20 Sodium 133 mmol/L (132-148) 04/13/17 07:22 Potassium 3.5 mmol/L (3.6-5.2) L 04/13/17 07:22 Chloride 96 mmol/L (98-107) L 04/13/17 07:22 Carbon Dioxide 30 mmol/L (22-30) 04/13/17 07:22 Anion Gap 11 (10-20) 04/13/17 07:22 BUN 8 mg/dL (7-17) 04/13/17 07:22 Creatinine 0.7 MG/DL (0.7-1.2) 04/13/17 07:22 Est GFR ( Amer) > 60 04/13/17 07:22 Est GFR (Non-Af Amer) > 60 04/13/17 07:22 Random Glucose 104 mg/dL (65-105) 04/13/17 07:22 Hemoglobin A1c 5.6 % (4.2-6.5) 04/05/17 17:20 Calcium 7.9 mg/dl (8.6-10.4) L 04/13/17 07:22 Phosphorus 3.2 mg/dL (2.5-4.5) 04/13/17 07:22 Magnesium 2.0 mg/dL (1.6-2.3) 04/13/17 07:22 Total Bilirubin 0.6 mg/dL (0.2-1.3) 04/13/17 07:22 AST 34 U/L (14-36) 04/13/17 07:22 ALT 46 U/L (9-52) 04/13/17 07:22 Alkaline Phosphatase 103 U/L (38-126) 04/13/17 07:22 Total Creatine Kinase 84 U/L (30-135) 04/06/17 02:16 CK-MB (Mass) 1.24 ng/mL (0.0-3.38) 04/06/17 02:16 Troponin I < 0.0120 ng/mL (0.00-0.120) 04/05/17 11:22 Troponin I, Quant < 0.0120 ng/mL (0.00-0.120) 04/06/17 02:16 Total Protein 5.6 g/dL (6.3-8.3) L 04/13/17 07:22 Albumin 2.5 g/dL (3.5-5.0) L 04/13/17 07:22 Globulin 3.1 gm/dL (2.2-3.9) 04/13/17 07:22 Albumin/Globulin Ratio 0.8 (1.0-2.1) L 04/13/17 07:22 Triglycerides 50 mg/dL (0-149) 04/05/17 17:20 Cholesterol 161 mg/dL (0-199) 04/05/17 17:20 LDL Cholesterol Direct 92 mg/dL (0-129) 04/05/17 17:20 HDL Cholesterol 56 mg/dL (30-70) 04/05/17 17:20 Amylase 42 U/L (30-110) 04/07/17 08:32 Lipase 18 U/L (23-300) L 04/06/17 07:03 Free T4 1.74 ng/dL (0.78-2.19) 04/07/17 04:00 TSH 3rd Generation 0.45 mIU/L (0.46-4.68) L 04/05/17 17:20 Stool Occult Blood Negative (NEGATIVE) 04/06/17 14:58 - Hospital Course Hospital Course: Upon Admission 66 year old female with PMHx of arthritis and chronic low back pain who presents to the ED after she developed chest pain this morning. Patient was walking while at work when she had sudden onset midsternal chest pain at 0930. Pain was described as sharp pressure, 8/10, and radiating to her back. Patient sat down and had 2 episodes of non-bilious, non-bloody vomiting. The patient was brought to the ED where she was given Morphine 4mg IV. Pain was alleviated to a 3/10 but still present. Upon examination the patient states that the pain now radiates to her bilateral flank. Patient had a stress test 2 years ago which was normal. Colonoscopy done 02/2017 which showed polyp and diverticulum. Patient was admitted to [facility] and had a CTA chest with dissection protocol showing centriacinar type emphysema in mid and upper lung abbott b/l R>L. Bullae noted at each lung base; No evidence of aortic -aneurysm. CT Abd/pelvis with IV contrast: gallstone; scattered colonic diverticula, no evidence of diverticulitis; hyperdense appearance of right ovary. Patient was later found to have RUQ abdominal pain and on u/s was found to have cholelithiasis and possible polyp with GB wall thickening/edema. Small amount of free fluid adjacent to the gallbladder. Small amount of free fluid adjacent to the gallbladder. Rule out mild early cholecystitis. Small cyst left lower lobe liver. Small cyst midpole left kdiney the kidneys are also slightly echogenic. Rule out underlying medical renal disease. GI Dr. Chacon was consulted. HIDA scan showed nonvisualization of the GB. Cystic duct is occluded. Surgery Dr. Kearns was consulted and patient was deemed necessary for surgical intervention. Dr. Mina farrell was consulted for emphysema and bullae noted on CT chest who deemed patient was stable for surgery. Patient had a lapchole with abscess drainage and washout on 04/10 which he toelrated. Patient had robinson drain placed. As patient was complaining of headaches, Neurology Dr. Jorge Holm was consulted and a CT head was ordered which was negative and MRI brain was ordered that showed no acute infarct. Chronic white matter ischemia. Small rounded focus within left parasagittal posterior superior parietal calvarium that could represent dermoid/epidermoid. On POD#3 patient was deemed medically and surgically stable for discharge. 1) Cholelithiasis and cholecystitis: f/u with Dr. Kearns in 2 weeks 2) Chest pain: resolved 3) Headaches: resolved 4) Glaucoma: continue home med Upon Discharge Patient stable for discharge home as per hospitalist Dr. Culver, general surgery Dr. Kearns, GI Dr. Chacon, pulm Dr. Enriquez, and neuro Dr. Jorge Holm. Patient to take medications as prescribed: -Ciprofloxacin 500mg po q12 for 7 days Disp#14 -Flagyl 500mg po q8 for 7 days Disp#21 -Crestor 10mg po qhs Disp#30 Patient to follow up with PMD Dr. Grullon within 7 days. Patient to be discharged with drain in place as per Dr. Kearns and to follow up in office with Dr. Kearns within 2 weeks. Patient to take pain rx as instructed by surgical team. Patient to follow up with senior qualitative researcher Dr. Enriquez within 3 weeks for outpatient pulmonary function test. Patient to also follow up with GI Dr. Chacon within 3 weeks. Patient to follow a low fat diet and encouraged to take OTC probiotics 1/2 an hour before taking prescribed antibiotics. Patient encouraged to ambulate. If symptoms persist or worsen patient to visit ER immediately. Instructions discussed in detail with patient who understands and agrees. Please note this is a discharge summary. For full hospital course please refer to medical records. Discharge Exam - Head Exam Head Exam: ATRAUMATIC, NORMOCEPHALIC - Eye Exam Eye Exam: EOMI, Normal appearance, PERRL. absent: Conjunctival injection, Scleral icterus Pupil Exam: NORMAL ACCOMODATION - ENT Exam ENT Exam: Mucous Membranes Moist - Neck Exam Neck exam: Full Rom, Normal Inspection - Respiratory Exam Respiratory Exam: Clear to PA & Lateral, NORMAL BREATHING PATTERN, UNREMARKABLE. absent: Accessory Muscle Use, Rales, Rhonchi, Wheezes, Respiratory Distress - Cardiovascular Exam Cardiovascular Exam: REGULAR RHYTHM, RRR, +S1, +S2. absent: Systolic Murmur - GI/Abdominal Exam GI & Abdominal Exam: Normal Bowel Sounds, Soft, Tenderness (at incision sites). absent: Firm, Guarding, Rigid Additional comments: dressings c/d/i Robinson drain in place - Extremities Exam Extremities exam: normal capillary refill, normal inspection, pedal pulses present - Back Exam Back exam: NORMAL INSPECTION. absent: rash noted - Neurological Exam Neurological exam: Alert, Oriented x3 - Psychiatric Exam Psychiatric exam: Normal Affect, Normal Mood - Skin Skin Exam: Dry, Intact, Normal Color, Warm Discharge Plan - Discharge Medications Prescriptions: Ciprofloxacin [Cipro] 500 mg PO Q12 #14 tab metroNIDAZOLE [Flagyl] 500 mg PO Q8H #21 tab Rosuvastatin Calcium [Crestor] 10 mg PO HS #30 tab - Follow Up Plan Condition: FAIR Disposition: HOME/ ROUTINE Instructions: Ciprofloxacin (By mouth), Metronidazole (By mouth), Rosuvastatin (By mouth), Chest Pain (DC), Cholecystitis (DC), Cholecystitis (GEN) Additional Instructions: Patient stable for discharge home as per hospitalist Dr. Culver, general surgery Dr. Kearns, GI Dr. Chacon, pulm Dr. Enriquez, and neuro Dr. Jorge Holm. Patient to take medications as prescribed: -Ciprofloxacin 500mg po q12 for 7 days Disp#14 -Flagyl 500mg po q8 for 7 days Disp#21 -Crestor 10mg po qhs Disp#30 Patient to follow up with PMD Dr. Grullon within 7 days. Patient to be discharged with drain in place as per Dr. Kearns and to follow up in office with Dr. Kearns within 2 weeks. Patient to take pain rx as instructed by surgical team. Patient to follow up with senior qualitative researcher Dr. Enriquez within 3 weeks for outpatient pulmonary function test. Patient to also follow up with GI Dr. Chacon within 3 weeks. Patient to follow a low fat diet and encouraged to take OTC probiotics 1/2 an hour before taking prescribed antibiotics. Patient encouraged to ambulate. If symptoms persist or worsen patient to visit ER immediately. Instructions discussed in detail with patient who understands and agrees. Referrals: Zak Enriquez MD [Staff Provider] - Kerrie Grullon MD [Staff Provider] - Harry Kearns MD [Staff Provider] - Abdelrahman Chacon MD [Staff Provider] - <Tony Culver - Last Filed: 04/13/17 18:05> Provider - Provider Date of Admission: 04/07/17 13:45 Attending physician: Torey Greene MD Hospital Course - Lab Results Lab Results: Micro Results 04/10/17 17:27 Bile Gram Stain - Final Most Recent Lab Values WBC 7.2 K/uL (4.8-10.8) 04/13/17 07: RBC 3.74 Mil/uL (3.80-5.20) L 04/13/17 07:22 Hgb 10.5 g/dL (11.0-16.0) L 04/13/17 07:22 Hct 31.0 % (34.0-47.0) L 04/13/17 07: MCV 82.9 fL (81.0-99.0) 04/13/17 07: MCH 28.1 pg (27.0-31.0) 04/13/17 07: MCHC 33.9 g/dL (33.0-37.0) 04/13/17: RDW 14.2 % (11.5-14.5) 04/13/17 07: Plt Count 248 K/uL (130-400) 04/13/17 07: MPV 7.4 fL (7.2-11.7) 04/13/17 07: Neut % (Auto) 77.7 % (50.0-75.0) H 04/13/17 07:22 Lymph % (Auto) 8.8 % (20.0-40.0) L 04/13/17 07:22 Arthur % (Auto) 11.4 % (0.0-10.0) H 04/13/17 07:22 Eos % (Auto) 1.9 % (0.0-4.0) 04/13/17: Baso % (Auto) 0.2 % (0.0-2.0) 04/13/17 07: Neut # 5.6 K/uL (1.8-7.0) 04/13/17 07:22 Lymph # 0.6 K/uL (1.0-4.3) L 04/13/17 07:22 Arthur # 0.8 K/uL (0.0-0.8) 04/13/17 07:22 Eos # 0.1 K/uL (0.0-0.7) 04/13/17 07: Baso # 0.0 K/uL (0.0-0.2) 04/13/17 07:22 Neutrophils % (Manual) 80 % (50-75) H 04/13/17 07:22 Band Neutrophils % 7 % (0-2) H 04/13/17 07:22 Lymphocytes % (Manual) 4 % (20-40) L 04/13/17 07:22 Monocytes % (Manual) 6 % (0-10) 04/13/17 07:22 Eosinophils % (Manual) 2 % (0-4) 04/13/17 07:22 Myelocytes % 1 % (0-0) H 04/13/17 07:22 Platelet Estimate Normal (NORMAL) 04/13/17 07:22 RBC Morphology Normal 04/08/17 07:00 Hypochromasia (manual) Slight 04/13/17 07:22 Poikilocytosis (manual Slight 04/10/17 08:09 Anisocytosis (manual) Slight 04/10/17 08:09 Target Cells Slight 04/10/17 08:09 Ovalocytes Slight 04/13/17 07:22 ESR 81 mm/hr (0-20) H 04/08/17 07:00 PT 11.0 SECONDS (9.7-12.2) 04/10/17 08:09 INR 1.0 04/10/17 08:09 APTT 29 SECONDS (21-34) 04/10/17 08:09 Puncture Site Rra 04/08/17 20:20 pCO2 41 mm/Hg (35-45) 04/08/17 20:20 pO2 46 mm/Hg (80-100) L 04/08/17 20:20 HCO3 25.5 mmol/L (21-28) 04/08/17 20:20 ABG pH 7.41 (7.35-7.45) 04/08/17 20:20 ABG Total CO2 27.3 mmol/L (22-28) 04/08/17 20:20 ABG O2 Saturation 85.8 % (95-98) L 04/08/17 20:20 ABG Base Excess 1.2 mmol/L (-2.0-3.0) 04/08/17 20:20 ABG Hemoglobin 12.0 g/dL (11.7-17.4) 04/08/17 20:20 ABG Carboxyhemoglobin 2.1 % (0.5-1.5) H 04/08/17 20:20 POC ABG HHb (Measured) 13.7 % (0.0-5.0) H 04/08/17 20:20 ABG Methemoglobin 1.3 % (0.0-3.0) 04/08/17 20:20 Dylan Test Pos 04/08/17 20:20 A-a O2 Difference 52.0 mm/Hg 04/08/17 20:20 Respiratory Index 1.1 04/08/17 20:20 Hgb O2 Saturation 82.8 % (95.0-98.0) L 04/08/17 20:20 FiO2 21.0 % 04/08/17 20:20 Sodium 133 mmol/L (132-148) 04/13/17 07:22 Potassium 3.5 mmol/L (3.6-5.2) L 04/13/17 07:22 Chloride 96 mmol/L (98-107) L 04/13/17 07:22 Carbon Dioxide 30 mmol/L (22-30) 04/13/17 07:22 Anion Gap 11 (10-20) 04/13/17 07:22 BUN 8 mg/dL (7-17) 04/13/17 07:22 Creatinine 0.7 MG/DL (0.7-1.2) 04/13/17 07:22 Est GFR ( Amer) > 60 04/13/17 07:22 Est GFR (Non-Af Amer) > 60 04/13/17 07:22 Random Glucose 104 mg/dL (65-105) 04/13/17 07:22 Hemoglobin A1c 5.6 % (4.2-6.5) 04/05/17 17:20 Calcium 7.9 mg/dl (8.6-10.4) L 04/13/17 07:22 Phosphorus 3.2 mg/dL (2.5-4.5) 04/13/17 07:22 Magnesium 2.0 mg/dL (1.6-2.3) 04/13/17 07:22 Total Bilirubin 0.6 mg/dL (0.2-1.3) 04/13/17 07:22 AST 34 U/L (14-36) 04/13/17 07:22 ALT 46 U/L (9-52) 04/13/17 07:22 Alkaline Phosphatase 103 U/L (38-126) 05/22/17 07:22 Total Creatine Kinase 84 U/L (30-135) 04/06/17 02:16 CK-MB (Mass) 1.24 ng/mL (0.0-3.38) 04/06/17 02:16 Troponin I < 0.0120 ng/mL (0.00-0.120) 04/05/17 11:22 Troponin I, Quant < 0.0120 ng/mL (0.00-0.120) 04/06/17 02:16 Total Protein 5.6 g/dL (6.3-8.3) L 04/13/17 07:22 Albumin 2.5 g/dL (3.5-5.0) L 04/13/17 07:22 Globulin 3.1 gm/dL (2.2-3.9) 04/13/17 07:22 Albumin/Globulin Ratio 0.8 (1.0-2.1) L 04/13/17 07:22 Triglycerides 50 mg/dL (0-149) 04/05/17 17:20 Cholesterol 161 mg/dL (0-199) 04/05/17 17:20 LDL Cholesterol Direct 92 mg/dL (0-129) 04/05/17 17:20 HDL Cholesterol 56 mg/dL (30-70) 04/05/17 17:20 Amylase 42 U/L (30-110) 04/07/17 08:32 Lipase 18 U/L (23-300) L 04/06/17 07:03 Free T4 1.74 ng/dL (0.78-2.19) 04/07/17 04:00 TSH 3rd Generation 0.45 mIU/L (0.46-4.68) L 04/05/17 17:20 Stool Occult Blood Negative (NEGATIVE) 04/06/17 14:58 Attending/Attestation - Attestation I have personally seen and examined this patient.: Yes I have fully participated in the care of the patient.: Yes I have reviewed all pertinent clinical information, including history, physical exam and plan: Yes Notes (Text): 04/13/17 18:03 Patient was seen and examined at bedside with the resident Patient appears comfortable. Robinson drain is in place. Patient is cleared by surgery for discharge to home. Didn't will be removed in the office subsequently by surgeon. We'll discharge the patient on oral antibiotics. Discussed the discharge plan with the patient and she verbalized understanding I agree with the discharge note by the resident.
[2017-04-13] MEDS ORDERED: Potassium Chloride 20 mEq ER Tab PO ONE (13:15)
[2017-04-13 15:42] VITALS: BP 146/84; PULSE 102; TEMP 98.6; O2SAT 95
[2017-04-14] MEDS ORDERED: Potassium Chloride 20 mEq ER Tab PO ONE (12:37)
== END 2017-04-13 17:21 | disposition home or self-care (01) | DRG 418 ==
LOC: C.ER 10:29 → C.9E 14:18 → C.6T 17:03 → OBSVTOIN 04-07 13:45 → C.5T 04-07 22:40
PROVIDERS: ADMIT Internal Medicine; ATTEND Internal Medicine
PROC: 0FN44ZZ Release Gallbladder, Percutaneous Endoscopic Approach (ICD-10-PCS; 2017-04-10)
PROC: 0F9440Z Drainage of Gallbladder with Drainage Device, Percutaneous Endoscopic Approach (ICD-10-PCS; 2017-04-10)
PROC: 0FT44ZZ Resection of Gallbladder, Percutaneous Endoscopic Approach (ICD-10-PCS; principal; 2017-04-10 12:30)
DX: K80.12 Calculus of gallbladder with acute and chronic cholecystitis without obstruction (principal); R18.8 Other ascites; K76.89 Other specified diseases of liver; J43.9 Emphysema, unspecified; G44.209 Tension-type headache, unspecified, not intractable; K82.8 Other specified diseases of gallbladder; G89.29 Other chronic pain; J45.909 Unspecified asthma, uncomplicated; M81.0 Age-related osteoporosis without current pathological fracture; M54.5 Low back pain; Z98.1 Arthrodesis status; Z87.891 Personal history of nicotine dependence; K57.30 Diverticulosis of large intestine without perforation or abscess without bleeding; J20.9 Acute bronchitis, unspecified; H40.9 Unspecified glaucoma

== ENCOUNTER 2019-02-25 09:19 | Inpatient (IN) | payer MEDICARE ==
[2019-02-25 09:26] VITALS: BMI 33.5
[2019-02-25] MEDS ORDERED: Sodium Chloride 0.9% 1,000 ML IV STA (10:24)
[2019-02-25] MEDS ORDERED: Iohexol 240 (50 ml) PO STA (10:24)
[2019-02-25] MEDS ORDERED: Sodium Chloride 0.9% 1,000 ML ONE (10:55)
[2019-02-25] MEDS ORDERED: Iohexol 240 (50 ml) ONE (10:55)
[2019-02-25 11:11] LABS: BASO % 0.3 % (0.0-2.0); EOS # 0.2 K/uL (0.0-0.7); EOS % 3.6 % (0.0-4.0); HEMOGLOBIN 14.5 g/dL (11.0-16.0); LYMPH # 1.1 K/uL (1.0-4.3); LYMPH % 22.8 % (20.0-40.0); MEAN CELL VOLUME 86.6 fL (81.0-99.0); MEAN CORPUSCULAR HEMOGLOBIN 29.2 pg (27.0-31.0); MEAN CORPUSCULAR HGB CONC 33.7 g/dL (33.0-37.0); MEAN PLATELET VOLUME 7.9 fL (7.2-11.7); MONO # 0.4 K/uL (0.0-0.8); MONO % 8.9 % (0.0-10.0); NEUT # 3.1 K/uL (1.8-7.0); NEUT % 64.4 % (50.0-75.0); NRBC % 0.1 % (0.0-2.0); RBC 4.97 Mil/uL (3.80-5.20); RED CELL DISTRIBUTION WIDTH 14.3 % (11.5-14.5); WHITE BLOOD COUNT 4.9 K/uL (4.8-10.8)
[2019-02-25 11:24] LABS: SQUAMOUS EPITHIAL 7 /hpf (0-5); URINE BACTERIA RARE (<OCC); URINE BILIRUBIN NEGATIVE (NEGATIVE); URINE BLOOD NEGATIVE (NEGATIVE); URINE CLARITY Hazy (Clear); URINE COLOR Yellow (YELLOW); URINE GLUCOSE (UA) NORMAL (Normal); URINE PROTEIN NEGATIVE (NEGATIVE)
[2019-02-25 11:25] LABS: URINE LEUKOCYTE ESTERASE 2+ Leu/uL (Negative)
[2019-02-25 11:33] LABS: ALB/GLOB RATIO 1.3 (1.0-2.1); ALBUMIN 4.2 g/dL (3.5-5.0); AST/SGOT 23 U/L (14-36); BLOOD UREA NITROGEN 13 mg/dL (7-17); CALCIUM 9.4 mg/dl (8.6-10.4); GFR NON-AFRICAN AMERICAN > 60; LIPASE 71 U/L (23-300)
[2019-02-25 11:34] LABS: ALT/SGPT < 6 U/L (9-52)
[2019-02-25] MEDS ORDERED: Iohexol 350mg/ml 100 ML ONE (13:30)
--- NOTE | 2019-02-25 15:24 | C.PDOC ---
History Of Present Illness 68 year old female presents to the ED for evaluation of abdominal pain which began a couple of weeks ago. Patient also reports increased urinary frequency. She was evaluated by her PMD, who has scheduled her for an outpatient CT scan with oral contrast. Patient states she developed severe pain to her left flank this morning and was instructed by her PMD to present to the ED for immediate evaluation. She denies fever, chills, nausea, vomiting, diarrhea. Time Seen by Provider: 02/25/19 09:47 Chief Complaint (Nursing): Abdominal Pain History Per: Patient History/Exam Limitations: no limitations Onset/Duration Of Symptoms: Other (couple weeks ) Current Symptoms Are (Timing): Worse Location Of Pain/Discomfort: Diffuse Radiation Of Pain To:: Flank Quality Of Discomfort: "Pain" Associated Symptoms: Urinary Symptoms (urinary frequency ). denies: Fever, Chills, Nausea, Vomiting, Diarrhea Additional History Per: Patient Abnormal Vaginal Bleeding: No Past Medical History Reviewed: Historical Data, Nursing Documentation, Vital Signs Vital Signs: Last Vital Signs Temp 98.0 F 02/25/19 12:48 Pulse 69 02/25/19 12:48 Resp 18 02/25/19 12:48 BP 131/84 02/25/19 12:48 Pulse Ox 98 02/25/19 12:48 - Medical History PMH: Arthritis, Asthma, Colonic Polyps, Fractures (rt ankle), Osteoporosis Denies: Depression, Chronic Kidney Disease Surgical History: Cholecystectomy (x2), - [facility] Procedures DRAINAGE OF GALLBLADDER WITH DRAIN DEV, PERC ENDO APPROACH (04/07/17) RELEASE GALLBLADDER, PERCUTANEOUS ENDOSCOPIC APPROACH (04/07/17) RESECTION OF GALLBLADDER, PERCUTANEOUS ENDOSCOPIC APPROACH (04/07/17) Family History: States: Unknown Family Hx - Social History Hx Tobacco Use: No Hx Alcohol Use: No Hx Substance Use: No - Immunization History Hx Tetanus Toxoid Vaccination: No (unk) Hx Influenza Vaccination: Yes Hx Pneumococcal Vaccination: Yes Review Of Systems Constitutional: Negative for: Fever, Chills Gastrointestinal: Positive for: Abdominal Pain. Negative for: Nausea, Vomiting, Diarrhea Genitourinary: Positive for: Frequency Musculoskeletal: Positive for: Other (left flank pain ) Physical Exam - Physical Exam Appears: Non-toxic, No Acute Distress Skin: Normal Color, Warm, Dry Head: Atraumatic, Normacephalic Eye(s): bilateral: Normal Inspection Oral Mucosa: Moist Neck: Supple Chest: Symmetrical, No Deformity, No Tenderness Cardiovascular: Rhythm Regular, No Murmur Respiratory: Normal Breath Sounds, No Rales, No Rhonchi, No Wheezing Gastrointestinal/Abdominal: Soft, Tenderness (to left upper quadrant ), No Distention, No Guarding, No Rebound Back: CVA Tenderness (left-sided) Extremity: Normal ROM, Capillary Refill (less than 2 seconds ) Neurological/Psych: Oriented x3, Normal Speech, Normal Cognition ED Course And Treatment - Laboratory Results Result Diagrams: 02/25/19 11:01 02/25/19 11:01 Lab Results: Total Bilirubin 0.5 mg/dL (0.2-1.3) 02/25/19 11:01 AST 23 U/L (14-36) 02/25/19 11:01 ALT < 6 U/L (9-52) L D 02/25/19 11:01 Alkaline Phosphatase 133 U/L (38-126) H 02/25/19 11:01 Total Protein 7.3 g/dL (6.3-8.3) 02/25/19 11:01 Albumin 4.2 g/dL (3.5-5.0) 02/25/19 11:01 Globulin 3.1 gm/dL (2.2-3.9) 02/25/19 11:01 Albumin/Globulin Ratio 1.3 (1.0-2.1) 02/25/19 11:01 Lipase 71 U/L (23-300) 02/25/19 11:01 Urine Color Yellow (YELLOW) 02/25/19 11:01 Urine Clarity Hazy (Clear) 02/25/19 11:01 Urine pH 6.0 (5.0-8.0) 02/25/19 11:01 Ur Specific [place] 1.017 (1.003-1.030) 02/25/19 11:01 Urine Protein Negative mg/dL (NEGATIVE) 02/25/19 11:01 Urine Glucose (UA) Normal mg/dL (Normal) 02/25/19 11:01 Urine Ketones Negative mg/dL (NEGATIVE) 02/25/19 11:01 Urine Blood Negative (NEGATIVE) 02/25/19 11:01 Urine Nitrate Negative (NEGATIVE) 02/25/19 11:01 Urine Bilirubin Negative (NEGATIVE) 02/25/19 11:01 Urine Urobilinogen 2.0 mg/dL (0.2-1.0) H 02/25/19 11:01 Ur Leukocyte Esterase 2+ Lin/uL (Negative) H 02/25/19 11:01 Urine WBC (Auto) 23 /hpf (0-5) H 02/25/19 11:01 Urine RBC (Auto) 1 /hpf (0-3) 02/25/19 11:01 Ur Squamous Epith Cells 7 /hpf (0-5) H 02/25/19 11:01 Urine Bacteria Rare (<OCC) 02/25/19 11:01 O2 Sat by Pulse Oximetry: 98 (on RA) Pulse Ox Interpretation: Normal - CT Scan/US CT abdomen and pelvis Other Rad Studies (CT/US): Read By Radiologist, Radiology Report Reviewed CT/US Interpretation: Accession No. : [id number]. Patient Name / ID : LISA MUNIZ Y / [id number]. Exam Date : 02/25/2019 14:14:01 ( Approved ). Study Comment : Sex / Age : F / 68Y. Creator : Krista Naranjo. Dictator : Malcolm Cottrell MD. Alarm Mechanic : Piece Cutter : Malcolm Cottrell MD. Approver2 : Report Date : 02/25/2019 14:50:18. My Comment : . Date of service: 02/25/2019. PROCEDURE: CT Abdomen and Pelvis with contrast. HISTORY: pain. COMPARISON: Not available. TECHNIQUE: Contrast dose: 100 mL Omnipaque 350. Radiation dose: Total exam DLP = 969.82 mGy-cm. This CT exam was performed using one or more of the following dose reduction techniques: Automated exposure control, adjustment of the mA and/or kV according to patient size, and/or use of iterative reconstruction technique. FINDINGS: LOWER THORAX: Unremarkable. LIVER: Normal size, contour and attenuation. 1.6 cm rounded nonspecific low- attenuation lesion in the lateral segment of the left hepatic lobe. No change from 04/05/2017. No other mass. No biliary dilatation. GALLBLADDER AND BILE DUCTS: Status post cholecystectomy. PANCREAS: Unremarkable. No gross lesion or ductal dilatation. SPLEEN: Unremarkable. ADRENALS: Unremarkable. No mass. KIDNEYS AND URETERS: Unremarkable. No hydronephrosis. No solid mass. VASCULATURE: Unremarkable. No aortic aneurysm. There is atherosclerotic calcification of the abdominal aorta. BOWEL: There is diverticulosis of the transverse and descending colon without evidence of diverticulitis. Scattered colonic diverticula are seen elsewhere. There is no bowel obstruction. There are no other abnormal bowel loops identified. APPENDIX: Normal appendix. PERITONEUM: Trace fluid in pelvis. LYMPH NODES: Unremarkable. No enlarged lymph nodes. BLADDER: Markedly distended bladder. There is a small right sided diverticulum at the bladder base. There is some septations seen within the lower bladder with a soft tissue density along the right lateral aspect of the lower bladder adjacent to the diverticulum, containing some coarse calcification. Alternatively, what appears to represent calcification could represent focal enhancement. No noncontrast study available at this time. This soft tissue density measures roughly 2.6 cm in diameter. Uncertain significance. Correlate with cystoscopic evaluation. Not seen on prior CT. REPRODUCTIVE: Normal uterus. BONES: Posterior fixation L3 through L5. OTHER FINDINGS: None. IMPRESSION: Distended urinary bladder. There is a small right sided bladder diverticulum at the bladder base. There is soft tissue density adjacent to the diverticulum with some possible calcification versus enhancement. There is septation seen in the lower bladder. Consider correlation with cystoscopic evaluation to exclude neoplasm along the right bladder base. Additional minor findings as above. Progress Note: Bloodwork, urinalysis, CT A/P ordered and reviewed. IV Fluids given. - Physician Consult Information Physician Contacted: Kerrie Grullon Outcome Of Conversation: accepted to [facility] for observation, requested consult Disposition - Disposition Disposition: HOSPITALIZED Disposition Time: 16:07 Condition: FAIR - Clinical Impression Clinical Impression: UTI (urinary tract infection), Mass of urinary bladder - PA / SPINNING FRAME CHANGER / Resident Statement MD/DO has reviewed & agrees with the documentation as recorded. - Scribe Statement The provider has reviewed the documentation as recorded by the Scribe (Chloe Saravia) All medical record entries made by the Scribe were at my direction and personally dictated by me. I have reviewed the chart and agree that the record accurately reflects my personal performance of the history, physical exam, medical decision making, and the department course for this patient. I have also personally directed, reviewed, and agree with the discharge instructions and disposition. Decision To Admit - Pt Status Changed To: Hospital Disposition Of: Observation - . Bed Request Type: Regular Admitting Physician: Kerrie Grullon Patient Diagnosis: UTI (urinary tract infection), Mass of urinary bladder
--- NOTE | 2019-02-25 15:30 | CT ---
Date of service: 02/25/2019 PROCEDURE: CT Abdomen and Pelvis with contrast HISTORY: pain COMPARISON: Not available TECHNIQUE: Contrast dose: 100 mL Omnipaque 350 Radiation dose: Total exam DLP = 969.82 mGy-cm. This CT exam was performed using one or more of the following dose reduction techniques: Automated exposure control, adjustment of the mA and/or kV according to patient size, and/or use of iterative reconstruction technique. FINDINGS: LOWER THORAX: Unremarkable. LIVER: Normal size, contour and attenuation. 1.6 cm rounded nonspecific low-attenuation lesion in the lateral segment of the left hepatic lobe. No change from 04/05/2017. No other mass. No biliary dilatation. GALLBLADDER AND BILE DUCTS: Status post cholecystectomy. PANCREAS: Unremarkable. No gross lesion or ductal dilatation. SPLEEN: Unremarkable. ADRENALS: Unremarkable. No mass. KIDNEYS AND URETERS: Unremarkable. No hydronephrosis. No solid mass. VASCULATURE: Unremarkable. No aortic aneurysm. There is atherosclerotic calcification of the abdominal aorta. BOWEL: There is diverticulosis of the transverse and descending colon without evidence of diverticulitis. Scattered colonic diverticula are seen elsewhere. There is no bowel obstruction. There are no other abnormal bowel loops identified. APPENDIX: Normal appendix. PERITONEUM: Trace fluid in pelvis LYMPH NODES: Unremarkable. No enlarged lymph nodes. BLADDER: Markedly distended bladder. There is a small right sided diverticulum at the bladder base. There is some septations seen within the lower bladder with a soft tissue density along the right lateral aspect of the lower bladder adjacent to the diverticulum, containing some coarse calcification. Alternatively, what appears to represent calcification could represent focal enhancement. No noncontrast study available at this time. This soft tissue density measures roughly 2.6 cm in diameter. Uncertain significance. Correlate with cystoscopic evaluation. Not seen on prior CT. REPRODUCTIVE: Normal uterus. BONES: Posterior fixation L3 through L5. OTHER FINDINGS: None IMPRESSION: Distended urinary bladder. There is a small right sided bladder diverticulum at the bladder base. There is soft tissue density adjacent to the diverticulum with some possible calcification versus enhancement. There is septation seen in the lower bladder. Consider correlation with cystoscopic evaluation to exclude neoplasm along the right bladder base. Additional minor findings as above.
[2019-02-25] MEDS ORDERED: cefTRIAXone IV 1 gm in Dextros 50 ML IV STA (16:04)
[2019-02-25] MEDS ORDERED: Sodium Chloride 0.9% 1,000 ML IV ONE (16:06)
[2019-02-25] MEDS: Sodium Chloride 0.45% 1,000 ML IV SCH (18:00)
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
[2019-02-26] MEDS: Sodium Chloride 0.45% 1,000 ML IV SCH (06:40)
[2019-02-26 07:48] LABS: PROTHROMBIN TIME 11.4 SECONDS (9.7-12.2)
--- NOTE | 2019-02-26 08:36 | CP.PCM.PN ---
Subjective - Date & Time of Evaluation Date of Evaluation: 02/26/19 Time of Evaluation: 08:36 - Subjective Subjective: pt reports feeling a lot better no pain. Eating well, no fever overnight. She has needed two doses of Toradol, last at 3Am per patient. No pain since then. NO n/V or chills No chest pain Objective - Vital Signs/Intake and Output Vital Signs (last 24 hours): Temp Pulse Resp BP Pulse Ox 97.8 F 75 20 130/78 96 02/26/19 07:51 02/26/19 07:51 02/26/19 07:51 02/26/19 07:51 02/26/19 07:51 - Medications Medications: Current Medications Duloxetine HCl (Cymbalta) 20 mg PO DAILY [facility] Enoxaparin Sodium (Lovenox) 40 mg SC DAILY KRISTIE Ceftriaxone Sodium (Rocephin Iv 1 Gm Duplex) 50 mls @ 100 mls/hr IVPB DAILY KRISTIE; Protocol Sodium Chloride (Sodium Chloride 0.45%) 1,000 mls @ 75 mls/hr IV .[id number] KRISTIE Last Admin: 02/26/19 06:40 Dose: 75 mls/hr Ketorolac Tromethamine (Toradol) 30 mg IVP Q6 PRN PRN Reason: Pain, moderate (4-7) Last Admin: 02/26/19 05:39 Dose: 30 mg Pantoprazole Sodium (Protonix Ec Tab) 40 mg PO DAILY KRISTIE - Labs Labs: 02/25/19 11:01 02/25/19 11:01 PT 11.4 SECONDS (9.7-12.2) 02/26/19 07:04 INR 1.0 02/26/19 07:04 - Constitutional Appears: Well, Non-toxic - Eye Exam Eye Exam: Normal appearance - ENT Exam ENT Exam: Mucous Membranes Moist - Respiratory Exam Respiratory Exam: Clear to Ausculation Bilateral, NORMAL BREATHING PATTERN. absent: Rales, Wheezes - Cardiovascular Exam Cardiovascular Exam: REGULAR RHYTHM, RRR, +S1, +S2. absent: JVD, Rubs - GI/Abdominal Exam GI & Abdominal Exam: Soft, Normal Bowel Sounds - Exam Exam: absent: Bladder Distension Assessment and Plan - Assessment and Plan (Free Text) Assessment: Urosepsis bladder mass copd chronic back pain/sp back surgery Pt clinically improving no fever pain controlled cont abx for OR on Thursday for cysto
[2019-02-26] MEDS: Pantoprazole 40 mg EC Tab PO SCH (09:53)
[2019-02-26] MEDS: Enoxaparin 40 mg Syringe SC SCH (09:55)
[2019-02-26] MEDS: cefTRIAXone IV 1 gm in Dextros 50 ML IVPB SCH (10:01)
[2019-02-27] MEDS: Sodium Chloride 0.45% 1,000 ML IV SCH ×3 (03:00→23:27)
[2019-02-27] MEDS: cefTRIAXone IV 1 gm in Dextros 50 ML IVPB SCH (10:42)
[2019-02-27] MEDS: Pantoprazole 40 mg EC Tab PO SCH (10:45)
[2019-02-27] MEDS: Enoxaparin 40 mg Syringe SC SCH (10:45)
[2019-02-28 08:21] LABS: BASO % 0.3 % (0.0-2.0); EOS # 0.2 K/uL (0.0-0.7); EOS % 4.4 % (0.0-4.0); LYMPH # 1.6 K/uL (1.0-4.3); LYMPH % 39.5 % (20.0-40.0); MEAN CELL VOLUME 86.1 fL (81.0-99.0); MEAN CORPUSCULAR HEMOGLOBIN 29.4 pg (27.0-31.0); MEAN CORPUSCULAR HGB CONC 34.2 g/dL (33.0-37.0); MEAN PLATELET VOLUME 7.5 fL (7.2-11.7); MONO # 0.5 K/uL (0.0-0.8); MONO % 11.2 % (0.0-10.0); NEUT # 1.9 K/uL (1.8-7.0); NEUT % 44.6 % (50.0-75.0); RBC 4.76 Mil/uL (3.80-5.20); RED CELL DISTRIBUTION WIDTH 14.3 % (11.5-14.5); WHITE BLOOD COUNT 4.2 K/uL (4.8-10.8)
[2019-02-28 08:39] LABS: BLOOD UREA NITROGEN 15 mg/dL (7-17); CALCIUM 9.4 mg/dl (8.6-10.4); GFR NON-AFRICAN AMERICAN > 60
[2019-02-28] MEDS: Pantoprazole 40 mg EC Tab PO SCH ×2 (09:05→12:11)
[2019-02-28] MEDS: Enoxaparin 40 mg Syringe SC SCH ×2 (09:05→12:11)
[2019-02-28] MEDS: Dextrose 5%/0.45% NS 1,000 ML IV SCH (09:17)
--- NOTE | 2019-02-28 16:52 | NM ---
Date of service: 02/28/2019 PROCEDURE: Whole Body Bone Scan HISTORY: r/o bladder malignancy COMPARISON: None available. TECHNIQUE: Following administration of 24.2 miCu of Tc MDP multiplanar whole body images were obtained. FINDINGS: Evidence for bony metastatic disease: None. Degenerative uptake: Degenerative changes right knee. Physiologic uptake: Normal physiologic activity in the kidneys. Other findings: Findings consistent with left TKA. IMPRESSION: No evidence of bony metastatic disease.
--- NOTE | 2019-02-28 18:18 | CP.PCM.PN ---
Subjective - Date & Time of Evaluation Date of Evaluation: 02/28/19 Time of Evaluation: 18:18 - Subjective Subjective: Pt reports feeling well no chest pain back pain resolved no fever Objective - Vital Signs/Intake and Output Vital Signs (last 24 hours): Temp Pulse Resp BP Pulse Ox 98.7 F 72 20 132/89 97 02/28/19 16:10 02/28/19 16:10 02/28/19 16:10 02/28/19 16:10 02/28/19 16:10 Intake and Output: 02/28/19 02/28/19 06:59 18:59 Intake Total 1500 Balance 1500 - Medications Medications: Current Medications Duloxetine HCl (Cymbalta) 20 mg PO DAILY ON LICENSE OF [facility] Last Admin: 02/28/19 12:10 Dose: 20 mg Enoxaparin Sodium (Lovenox) 40 mg SC DAILY ON LICENSE OF [facility] Last Admin: 02/28/19 12:11 Dose: 40 mg Dextrose/Sodium Chloride (Dextrose 5%/0.45% Ns 1000 Ml) 1,000 mls @ 75 mls/hr IV .[id number] ON LICENSE OF [facility] Last Admin: 02/28/19 09:17 Dose: 75 mls/hr Pantoprazole Sodium (Protonix Ec Tab) 40 mg PO DAILY ON LICENSE OF [facility] Last Admin: 02/28/19 12:11 Dose: 40 mg - Labs Labs: 02/28/19 08:12 02/28/19 08:12 PT 11.4 SECONDS (9.7-12.2) 02/26/19 07:04 INR 1.0 02/26/19 07:04 - Constitutional Appears: Well, Non-toxic - Eye Exam Eye Exam: Normal appearance - ENT Exam ENT Exam: Mucous Membranes Moist - Respiratory Exam Respiratory Exam: Clear to Ausculation Bilateral - Cardiovascular Exam Cardiovascular Exam: REGULAR RHYTHM. absent: RRR - GI/Abdominal Exam GI & Abdominal Exam: Soft, Normal Bowel Sounds - Extremities Exam Extremities Exam: Full ROM Assessment and Plan - Assessment and Plan (Free Text) Assessment: Urosepsis much improved bladder mass awaiting for cysto bp is good
--- NOTE | 2019-03-01 00:08 | CP.PCM.CON ---
History of Present Illness - History of Present Illness History of Present Illness: UROLOGY CONSULTATION Past Patient History - Tetanus Immunizations Tetanus Immunization: Unknown - Past Medical History & Family History Past Medical History?: Yes - Past Social History Smoking Status: Former Smoker - CARDIAC Hx Cardiac Disorders: No - PULMONARY Hx Respiratory Disorders: Yes Hx Asthma: Yes - NEUROLOGICAL Hx Neurological Disorder: No - HEENT Hx HEENT Problems: Yes Hx Glaucoma: Yes - RENAL Hx Chronic Kidney Disease: No - ENDOCRINE/METABOLIC Hx Endocrine Disorders: No - HEMATOLOGICAL/ONCOLOGICAL Hx Blood Disorders: No Hx Blood Transfusions: No - INTEGUMENTARY Hx Dermatological Problems: No - MUSCULOSKELETAL/RHEUMATOLOGICAL Hx Musculoskeletal Disorders: Yes Hx Arthritis: Yes Hx Falls: No Hx Osteoporosis: Yes Other/Comment: Left Knee replacement, Back surgery - GASTROINTESTINAL Hx Gastrointestinal Disorders: Yes Other/Comment: Gall stones - GENITOURINARY/GYNECOLOGICAL Hx Genitourinary Disorders: No - PSYCHIATRIC Hx Psychophysiologic Disorder: No Hx Depression: No Hx Substance Use: No - SURGICAL HISTORY Hx Surgeries: Yes Hx Cholecystectomy: Yes (x2) Other/Comment: left knee replacement, back surgery - ANESTHESIA Hx Anesthesia: Yes Hx Anesthesia Reactions: No Hx Malignant Hyperthermia: No Meds Allergies/Adverse Reactions: Allergies Allergy/AdvReac Type Severity Reaction Status Date / Time soy Allergy Intermediate ITCHING Verified 02/25/19 09:25 - Medications Medications: Current Medications Duloxetine HCl (Cymbalta) 20 mg PO DAILY [facility] Last Admin: 02/28/19 12:10 Dose: 20 mg Enoxaparin Sodium (Lovenox) 40 mg SC DAILY [facility] Last Admin: 02/28/19 12:11 Dose: 40 mg Dextrose/Sodium Chloride (Dextrose 5%/0.45% Ns 1000 Ml) 1,000 mls @ 75 mls/hr IV .[id number] [facility] Last Admin: 02/28/19 09:17 Dose: 75 mls/hr Pantoprazole Sodium (Protonix Ec Tab) 40 mg PO DAILY [facility] Last Admin: 02/28/19 12:11 Dose: 40 mg Results - Vital Signs Recent Vital Signs: Last Vital Signs Temp 98.7 F 02/28/19 16:10 Pulse 72 02/28/19 16:10 Resp 20 02/28/19 16:10 BP 132/89 02/28/19 16:10 Pulse Ox 97 02/28/19 16:10 - Labs Result Diagrams: 02/28/19 08:12 02/28/19 08:12 Labs: Laboratory Results - last 24 hr 02/28/19 02/28/19 08:12 08:12 WBC 4.2 L RBC 4.76 Hgb 14.0 Hct 41.0 MCV 86.1 MCH 29.4 MCHC 34.2 RDW 14.3 Plt Count 221 MPV 7.5 Neut % (Auto) 44.6 L Lymph % (Auto) 39.5 [place] % (Auto) 11.2 H Eos % (Auto) 4.4 H Baso % (Auto) 0.3 Neut # (Auto) 1.9 Lymph # (Auto) 1.6 [place] # (Auto) 0.5 Eos # (Auto) 0.2 Baso # (Auto) 0.0 Sodium 137 Potassium 4.7 Chloride 105 Carbon Dioxide 28 Anion Gap 8 L BUN 15 Creatinine 0.9 Est GFR ( Amer) > 60 Est GFR (Non-Af Amer) > 60 Random Glucose 96 Calcium 9.4 Assessment & Plan - Assessment and Plan (Free Text) Assessment: IMP: ABDOMINAL PAIN BLADDER MASS PYURIA UTI FOR CYSTOSCOPY. SCHEDULED FOR TODAY, BUT BONE SCAN IN PROGRESS FULL NOTE T/F THANK YOU YS - Date & Time Date: 02/28/19 Time: 10:50
[2019-03-01] MEDS: Enoxaparin 40 mg Syringe SC SCH (09:07)
[2019-03-01] MEDS: Pantoprazole 40 mg EC Tab PO SCH ×2 (09:14→14:39)
[2019-03-01] MEDS ORDERED: cefTRIAXone 1 gm 1 GM/100 ML BAG IVPB ONE (10:19)
[2019-03-01] MEDS ORDERED: Iohexol 240 (50 ml) ONE (10:19)
[2019-03-01] MEDS ORDERED: Lidocaine 2% Jelly (Uro-Jet) ONE (10:20)
[2019-03-01] MEDS ORDERED: Midazolam 2 MG/2 ML VIAL ONE (10:26)
[2019-03-01] MEDS ORDERED: Propofol 10 mg/ml Inj (20 ML) ONE (10:29)
--- NOTE | 2019-03-01 10:56 | PCM.SURG1 ---
Surgeon's Initial Post Op Note - Surgeon's Notes Surgeon: Charisse [employer] Lab Technician: none Type of Anesthesia: General Endo Pre-Operative Diagnosis: bladder mass. L flank pain Operative Findings: No mass in bladder. Extrinsic compression of bladder Post-Operative Diagnosis: same Operation Performed: cysto. bilat rtg pyelogram. EUA Specimen/Specimens Removed: urine Estimated Blood Loss: EBL {In ML}: 0 Blood Products Given: N/A Drains Used: No Drains Post-Op Condition: Good Date of Surgery/Procedure: 03/01/19 Time of Surgery/Procedure: 10:56
[2019-03-01] MEDS ORDERED: HYDROmorphone 0.5 mg/0.5 ml ISec IVP PRN (11:57)
--- NOTE | 2019-03-01 11:57 | RAD ---
Date of service: 03/01/2019 PROCEDURE: Intraoperative fluoroscopy HISTORY: BLADDER MASS COMPARISON: Not available TECHNIQUE: Intraoperative fluoroscopy was provided for retrograde pyelo ureteral atrophy. Total time of fluoroscopy was 12.3 sec. Cumulative dose was 0.53147 mGy meter squared. FINDINGS: Multiple fluoroscopic spot films are submitted during progressive phases of the retrograde examination. IMPRESSION: Fluoroscopy provided.
[2019-03-01 15:05] VITALS: RESP 20
--- NOTE | 2019-03-01 16:53 | CP.PCM.PN ---
Subjective - Date & Time of Evaluation Date of Evaluation: 03/01/19 Time of Evaluation: 16:52 - Subjective Subjective: pt reports feeling better less headache now no chest pain or sob pt had cysto awaing full report Objective - Vital Signs/Intake and Output Vital Signs (last 24 hours): Temp Pulse Resp BP Pulse Ox 98.1 F 85 20 121/80 97 03/01/19 15:50 03/01/19 15:50 03/01/19 15:50 03/01/19 15:50 03/01/19 15:50 Intake and Output: 03/01/19 03/01/19 06:59 18:59 Intake Total 900 1475 Balance 900 1475 - Medications Medications: Current Medications Acetaminophen (Tylenol 325mg Tab) 650 mg PO Q6 PRN PRN Reason: Pain, moderate (4-7) Last Admin: 03/01/19 15:26 Dose: 650 mg Duloxetine HCl (Cymbalta) 20 mg PO DAILY [facility] Last Admin: 03/01/19 09:07 Dose: Not Given Enoxaparin Sodium (Lovenox) 40 mg SC DAILY [facility] Last Admin: 03/01/19 09:07 Dose: Not Given Hydromorphone HCl (Dilaudid) 0.5 mg IVP Q15M PRN PRN Reason: Pain, severe (8-10) Dextrose/Sodium Chloride (Dextrose 5%/0.45% Ns 1000 Ml) 1,000 mls @ 75 mls/hr IV .[id number] [facility] Last Admin: 03/01/19 00:00 Dose: 75 mls/hr Latanoprost (Xalatan Opht) 0 ml OU HS [facility] Pantoprazole Sodium (Protonix Ec Tab) 40 mg PO DAILY [facility] Last Admin: 03/01/19 14:39 Dose: 40 mg - Labs Labs: 02/28/19 08:12 02/28/19 08:12 PT 11.4 SECONDS (9.7-12.2) 02/26/19 07:04 INR 1.0 02/26/19 07:04 - Constitutional Appears: Non-toxic - Eye Exam Eye Exam: Normal appearance - ENT Exam ENT Exam: Mucous Membranes Moist - Respiratory Exam Respiratory Exam: Clear to Ausculation Bilateral - Cardiovascular Exam Cardiovascular Exam: +S1, +S2. absent: JVD - GI/Abdominal Exam GI & Abdominal Exam: Soft Assessment and Plan - Assessment and Plan (Free Text) Assessment: Pyelo Ct of bladder abn awaing for cysto full report cont anbx IV one more day will switch to po and dc home tomorrow.
[2019-03-01] MEDS: Dextrose 5%/0.45% NS 1,000 ML IV SCH ×2 (21:37)
[2019-03-01] MEDS ORDERED: Latanoprost 2.5 ml Opht Soln OU SCH (22:00)
[2019-03-02 07:50] VITALS: BP 129/82; PULSE 83; TEMP 98; O2SAT 95
[2019-03-02] MEDS: Enoxaparin 40 mg Syringe SC SCH (09:26)
[2019-03-02] MEDS: Pantoprazole 40 mg EC Tab PO SCH (09:29)
--- NOTE | 2019-03-02 10:10 | PCM.URO ---
Urology Progress Note - General General: No Complaints, Tolerating Diet - Subjective Abdominal Pain: No Flank Pain: No Nausea: No Vomiting: No Voiding Well: Yes Dysuria: Yes (mild, post-cysto, now resolved) Hematuria: No Good Stream: Yes Dsypnea: No Chest Pain: No Fever & Chills: No - Objective Intake & Output: Intake & Output 03/01/19 03/02/19 03/02/19 18:59 06:59 18:59 Intake Total 1475 850 Balance 1475 850 Intake: IV 875 Intake, IV Amount 600 600 Right Forearm 600 600 Oral 0 250 Other: # Voids Urine, Voided 2 3 # Bowel Movements 0 Vital Signs: Vital Signs - 24 hr 03/01/19 03/01/19 03/01/19 11:09 11:25 11:40 Temperature 97.1 F L Pulse Rate 98 H 82 78 Respiratory 19 18 15 Rate Blood Pressure 147/82 135/83 126/71 O2 Sat by Pulse 97 99 99 Oximetry 03/01/19 03/01/19 03/01/19 11:55 15:03 15:50 Temperature 98 F 97.4 F L 98.1 F Pulse Rate 73 82 85 Respiratory 15 20 20 Rate Blood Pressure 138/84 137/86 121/80 O2 Sat by Pulse 99 95 97 Oximetry 03/01/19 03/02/19 23:25 07:47 Temperature 98.2 F 98 F Pulse Rate 78 83 Respiratory 20 20 Rate Blood Pressure 134/82 129/82 O2 Sat by Pulse 97 95 Oximetry - Physical Exam Abdominal Exam: Soft, Non-Tender, Non-Distended Back: No CVA Tenderness - Plan Additional Information: IMP: stable post cysto. discussed finding w pt and attending MD - Date & Time of Note Date: 03/02/19 Time: 10:09
--- NOTE | 2019-03-02 10:49 | CP.PCM.PN ---
Subjective - Date & Time of Evaluation Date of Evaluation: 03/02/19 Time of Evaluation: 10:30 - Subjective Subjective: Patient seen today , denies any abdominal pain, dysuria, heamaturia , N/V/D No overnight events reported by RN a febrile s/p cysto Objective - Vital Signs/Intake and Output Vital Signs (last 24 hours): Temp Pulse Resp BP Pulse Ox 98 F 83 20 129/82 95 03/02/19 07:47 03/02/19 07:47 03/02/19 07:47 03/02/19 07:47 03/02/19 07:47 Intake and Output: 03/02/19 03/02/19 06:59 18:59 Intake Total 850 Balance 850 - Medications Medications: Current Medications Acetaminophen (Tylenol 325mg Tab) 650 mg PO Q6 PRN PRN Reason: Pain, moderate (4-7) Last Admin: 03/01/19 15:26 Dose: 650 mg Duloxetine HCl (Cymbalta) 20 mg PO DAILY [facility] Last Admin: 03/02/19 09:29 Dose: 20 mg Enoxaparin Sodium (Lovenox) 40 mg SC DAILY [facility] Last Admin: 03/02/19 09:26 Dose: Not Given Hydromorphone HCl (Dilaudid) 0.5 mg IVP Q15M PRN PRN Reason: Pain, severe (8-10) Dextrose/Sodium Chloride (Dextrose 5%/0.45% Ns 1000 Ml) 1,000 mls @ 75 mls/hr IV .[id number] [facility] Last Admin: 03/01/19 21:37 Dose: 75 mls/hr Latanoprost (Xalatan Opht) 0 ml OU HS [facility] Last Admin: 03/01/19 21:32 Dose: 2.5 ml Pantoprazole Sodium (Protonix Ec Tab) 40 mg PO DAILY [facility] Last Admin: 03/02/19 09:29 Dose: 40 mg - Labs Labs: 02/28/19 08:12 02/28/19 08:12 PT 11.4 SECONDS (9.7-12.2) 02/26/19 07:04 INR 1.0 02/26/19 07:04 Assessment and Plan - Assessment and Plan (Free Text) Assessment: A/P 68 year old female presents to the ED for evaluation of abdominal pain which began a couple of weeks ago. admitted with UTI and questionable mass s/p cysto patient has no complaints after cysto D/w Dr. Hopkins, cleared for discharge home todat and f/u with Dr. Espinoza office in 1 week and continue cipro for 5 more days Discharge instructions discussed with patient who understands and agrees with plan patient instructed to returns to ED if symptoms returns
--- NOTE | 2019-03-02 17:23 | CP.PCM.DIS ---
Provider - Provider Date of Admission: 02/27/19 13:15 Attending physician: Kerrie Grullon MD Consults: 02/25/19 16:06 Physician Consult Stat Comment: Consulting Provider: Iman Hyman Consulting Physician: Iman Hyman Reason for Consult: UTI, bladder mass Time Spent in preparation of Discharge (in minutes): 30 Hospital Course - Lab Results Lab Results: Micro Results 02/25/19 15:50 Urine Random Urine Culture - Final Lactobacillus Species Yeast Species Most Recent Lab Values WBC 4.2 K/uL (4.8-10.8) L 02/28/19 08:12 RBC 4.76 Mil/uL (3.80-5.20) 02/28/19 08:12 Hgb 14.0 g/dL (11.0-16.0) 02/28/19 08:12 Hct 41.0 % (34.0-47.0) 02/28/19 08:12 MCV 86.1 fL (81.0-99.0) 02/28/19 08:12 MCH 29.4 pg (27.0-31.0) 02/28/19 08:12 MCHC 34.2 g/dL (33.0-37.0) 02/28/19 08:12 RDW 14.3 % (11.5-14.5) 02/28/19 08:12 Plt Count 221 K/uL (130-400) 02/28/19 08:12 MPV 7.5 fL (7.2-11.7) 02/28/19 08:12 Neut % (Auto) 44.6 % (50.0-75.0) L 02/28/19 08:12 Lymph % (Auto) 39.5 % (20.0-40.0) 02/28/19 08:12 [place] % (Auto) 11.2 % (0.0-10.0) H 02/28/19 08:12 Eos % (Auto) 4.4 % (0.0-4.0) H 02/28/19 08:12 Baso % (Auto) 0.3 % (0.0-2.0) 02/28/19 08:12 Neut # (Auto) 1.9 K/uL (1.8-7.0) 02/28/19 08:12 Lymph # (Auto) 1.6 K/uL (1.0-4.3) 02/28/19 08:12 [place] # (Auto) 0.5 K/uL (0.0-0.8) 02/28/19 08:12 Eos # (Auto) 0.2 K/uL (0.0-0.7) 02/28/19 08:12 Baso # (Auto) 0.0 K/uL (0.0-0.2) 02/28/19 08:12 PT 11.4 SECONDS (9.7-12.2) 02/26/19 07:04 INR 1.0 02/26/19 07:04 Sodium 137 mmol/L (132-148) 02/28/19 08:12 Potassium 4.7 mmol/L (3.6-5.2) 02/28/19 08:12 Chloride 105 mmol/L (98-107) 02/28/19 08:12 Carbon Dioxide 28 mmol/L (22-30) 02/28/19 08:12 Anion Gap 8 (10-20) L 02/28/19 08:12 BUN 15 mg/dL (7-17) 02/28/19 08:12 Creatinine 0.9 mg/dL (0.7-1.2) 02/28/19 08:12 Est GFR ( Amer) > 60 02/28/19 08:12 Est GFR (Non-Af Amer) > 60 02/28/19 08:12 Random Glucose 96 mg/dL (65-105) 02/28/19 08:12 Calcium 9.4 mg/dl (8.6-10.4) 02/28/19 08:12 Magnesium 2.1 mg/dL (1.6-2.3) 02/25/19 11:01 Total Bilirubin 0.5 mg/dL (0.2-1.3) 02/25/19 11:01 AST 23 U/L (14-36) 02/25/19 11:01 ALT < 6 U/L (9-52) L D 02/25/19 11:01 Alkaline Phosphatase 133 U/L (38-126) H 02/25/19 11:01 Total Protein 7.3 g/dL (6.3-8.3) 02/25/19 11:01 Albumin 4.2 g/dL (3.5-5.0) 02/25/19 11:01 Globulin 3.1 gm/dL (2.2-3.9) 02/25/19 11:01 Albumin/Globulin Ratio 1.3 (1.0-2.1) 02/25/19 11:01 Lipase 71 U/L (23-300) 02/25/19 11:01 Urine Color Yellow (YELLOW) 02/25/19 11:01 Urine Clarity Hazy (Clear) 02/25/19 11:01 Urine pH 6.0 (5.0-8.0) 02/25/19 11:01 Ur Specific [place] 1.017 (1.003-1.030) 02/25/19 11:01 Urine Protein Negative mg/dL (NEGATIVE) 02/25/19 11:01 Urine Glucose (UA) Normal mg/dL (Normal) 02/25/19 11:01 Urine Ketones Negative mg/dL (NEGATIVE) 02/25/19 11:01 Urine Blood Negative (NEGATIVE) 02/25/19 11:01 Urine Nitrate Negative (NEGATIVE) 02/25/19 11:01 Urine Bilirubin Negative (NEGATIVE) 02/25/19 11:01 Urine Urobilinogen 2.0 mg/dL (0.2-1.0) H 02/25/19 11:01 Ur Leukocyte Esterase 2+ Lin/uL (Negative) H 02/25/19 11:01 Urine WBC (Auto) 23 /hpf (0-5) H 02/25/19 11:01 Urine RBC (Auto) 1 /hpf (0-3) 02/25/19 11:01 Ur Squamous Epith Cells 7 /hpf (0-5) H 02/25/19 11:01 Urine Bacteria Rare (<OCC) 02/25/19 11:01 - Hospital Course Hospital Course: pt was admittted with flank pain and urosepsis. Pt had a ct of abdomen due to abd pain as well, read as mass in bladder. Pt was treated with iv abx and cysto . No bladder mass seen but some extrinsic bladder compression on the right. Pt had resolution of abd pain and flank pain. vitals remained stable hydrated, iv anbx dc home with outpt follow up Discharge Exam - Eye Exam Eye Exam: Normal appearance - ENT Exam ENT Exam: Mucous Membranes Moist - Respiratory Exam Respiratory Exam: Clear to PA & Lateral, NORMAL BREATHING PATTERN Discharge Plan - Discharge Medications Prescriptions: Ciprofloxacin [Cipro] 250 mg PO BID 5 Days #10 tab - Follow Up Plan Condition: GOOD Instructions: Ciprofloxacin (Systemic), Bladder Spasms (DC), Urinary Tract Infection in Women (DC) Additional Instructions: Please f/u with Dr. Grullon office in 1 week please continue antibiotics for 5 days Please resume all home medications Referrals: Kerrie Grullon MD [Staff Provider] -
--- NOTE | 2019-03-03 03:38 | CON ---
DATE: 02/28/2019 UROLOGY CONSULTATION Urology consultation is requested by Dr. Kerrie Grullon. Urology consultation is filled by Dr. Iman Hyman. REASON FOR CONSULTATION: Bladder mass. HISTORY OF PRESENT ILLNESS: The patient is a 68-year-old female with a bladder mass. The patient is in otherwise good health. The patient presents with abdominal pain. She had left flank pain as well. The patient also reports urinary frequency. The patient reports no history of urolithiasis. No hematuria. No nausea or vomiting. The patient reports that she has had increased urinary frequency and difficulty voiding. The patient was found to have incomplete bladder emptying. She has distended bladder on CT scan. She also was found to have a right-sided bladder mass on CT scan. The patient has been treated since admission on 02/25/2019. She reports that she is feeling better at present. PHYSICAL EXAMINATION: GENERAL: The patient is a well-developed, well-nourished overweight elderly female. The patient is awake and alert. ABDOMEN: Soft, nontender, nondistended. No mass or organomegaly. BACK: No CVA tenderness. LABORATORY DATA: Reviewed. Radiographic studies are reviewed as well. IMPRESSION: Improved clinically regarding abdominal pain and flank pain, history of voiding dysfunction, now with incomplete emptying noted on bladder scan and CT scan, also noted bladder mass. RECOMMENDATIONS: For cystoscopy. I have scheduled a cystoscopy for today. However, the patient's other urologic studies are in progress. Cystoscopy will need to be rescheduled. I will discuss the findings with the attending staff. I have discussed the findings with the patient and with the nursing staff as well. Iman Hyman MD cc: Kerrie Grullon MD
--- NOTE | 2019-03-03 06:35 | OP ---
PROCEDURE DATE: 03/01/2019 PREOPERATIVE DIAGNOSES: Bladder mass, incomplete bladder emptying. POSTOPERATIVE DIAGNOSES: No bladder mass, cystitis, good emptying of the bladder. PROCEDURES: Cystoscopy, bilateral retrograde ureteral pyelogram, cystogram, exam under anesthesia. OPERATING SURGEON: Iman Hyman MD Procedure was performed under video endoscopic control as well as fluoroscopic control. DESCRIPTION OF PROCEDURE: Procedure as follows: The patient was placed in lithotomy position. Perioperative antibiotics were administered. The genitalia were prepped and draped in a sterile fashion. Water Mechanic film of the abdomen was obtained. The patient was placed in lithotomy position. A 22-[place] cystoscope sheath was introduced with obturator. The urine was sent for bacteriologic and cytologic examination. The urine within the bladder was 40 mL. The bladder was re-inspected with 30-degree and subsequently 70-degree lenses. FINDINGS: The urethral caliber was normal. There were no mucosal lesions within the urethra or the bladder neck. There was no bladder tumor. There was no bladder stone. There was a relative smoothness of the bladder wall located on the right side. There was no narrowed neck through a bladder diverticulum. There was no stone in the bladder. There was mild inflammation of bladder mucosa. There were no focal lesions within the bladder. There was mild bladder trabeculation. Ureteral orifices were normal in position and shape. Occlusive tip retrograde ureteral pyelogram was performed. Iodinated contrast dye was instilled via cone-tip catheter into each ureteral orifice. The retrograde pyelogram demonstrated no evidence of filling defect or obstruction within the ureters or collecting systems. There was good drainage noted on the post-drainage films. The bladder was re-inspected with 70-degree lens and confirmed the above findings. Again, there was no tumor noted on the right side of the bladder. There was no tumor noted in the bladder, as had been suggested by the CT scan. A cystogram was performed. Iodinated contrast dye was instilled. Radiographs and under fluoroscopic views of the bladder were obtained. There was no reflux noted. There was evidence of extrinsic compression of the bladder on the right superior lateral aspect of the bladder. The bladder was then drained. Cystoscope and sheath were removed. Exam under anesthesia was performed. There was some uterine enlargement. There were no adnexal masses palpable. The patient tolerated the procedure without complication. The patient was returned to supine position. The patient was transferred to the PACU in satisfactory condition. [place] MD Yenni cc: Kerrie Grullon MD
== END 2019-03-02 11:20 | disposition home or self-care (01) | DRG 690 ==
LOC: C.ER 09:19 → C.3T 16:04 → OBSVTOIN 02-27 13:15
PROVIDERS: ADMIT Internal Medicine; ATTEND Internal Medicine
PROC: BT14ZZZ Fluoroscopy of Kidneys, Ureters and Bladder (ICD-10-PCS; 2019-03-01)
PROC: 0TJB8ZZ Inspection of Bladder, Via Natural or Artificial Opening Endoscopic (ICD-10-PCS; principal; 2019-03-01 11:00)
DX: N39.0 Urinary tract infection, site not specified (principal); H40.9 Unspecified glaucoma; G89.29 Other chronic pain; J44.9 Chronic obstructive pulmonary disease, unspecified; N32.89 Other specified disorders of bladder; Z96.652 Presence of left artificial knee joint; Z87.891 Personal history of nicotine dependence